=== PATIENT | male | born 1940 | race Caucasian/White ===

== ENCOUNTER 2017-03-16 11:20 | Emergency (ER) | payer OTHER ==
[2017-03-16 11:59] VITALS: TEMP 97.1; BMI 26.6
--- NOTE | 2017-03-16 14:10 | PDOC ---
History of Present Illness <Sandor Todd - Last Filed: 03/16/17 13:50> - History of Present Illness Initial Comments: 03/16/17 15:19 The patient is a 76 year old male, with a significant past medical history of dementia (with agitation), hypothyroidism, depression, hernia s/p repair, BPH, who presents to the emergency department via ems from [facility] for being witnessed coughing during breakfast and afterwards. As per [place], the patient was witnessed eating breakfast when he started to cough. The [place] reports the patient continued to cough for at least an hour after eating. The patient is unable to give a history secondary to dementia. No reported fever. Pt noted hypoxic to 90 % per [place] report, vitals otherwise normal. Allergies: NKDA PCP - Dr. Edil Matos <Kena Danielson - Last Filed: 03/16/17 15:20> - General Chief Complaint: Cold Symptoms Stated Complaint: COUGH Time Seen by Provider: 03/16/17 12:00 Past History - Past Medical History Dementia: Yes (WITH AGITATION) Disorders: Yes (BPH) Psychiatric Problems: Yes (DEPRESSION) Thyroid Disease: Yes - Surgical History GI Surgery: Yes (HERNIA REPAIR) - Psycho/Social/Smoking Cessation Hx Anxiety: Yes Suicidal Ideation: No Smoking History: Unknown if ever smoked Have you smoked in the past 12 months: No Information on smoking cessation initiated: No Hx Alcohol Use: No Drug/Substance Use Hx: No Substance Use Type: None <Sandor Todd - Last Filed: 03/16/17 13:50> <Kena Danielson - Last Filed: 03/16/17 15:20> - Past Medical History Allergies/Adverse Reactions: Allergies Allergy/AdvReac Type Severity Reaction Status Date / Time No Known Allergies Allergy Verified 03/16/17 11:59 Home Medications: Ambulatory Orders Acetaminophen [Tylenol .Regular Strength -] 650 mg PO TID PRN 01/08/14 Melatonin 2 mg PO HS 01/08/14 Haloperidol [Haldol -] 2 mg PO BID 04/18/14 Tamsulosin HCl [Flomax -] 0.4 mg PO HS 04/18/14 Levothyroxine [Synthroid -] 50 mcg PO DAILY 07/09/14 Amlodipine Besylate 10 mg PO DAILY 09/10/16 Benztropine Mesylate 1 mg PO BID 09/10/16 Haloperidol Liquid [Haldol] 1 ml PO BID 09/10/16 Polyethylene Glycol 3350 [Miralax (For Daily Use) -] 17 gm PO DAILY 09/10/16 Valproic Acid (As Sodium Salt) [Valproic Acid] 10 ml PO TID 09/10/16 Zinc Oxide 20% Topical Oint 1 applic .ROUTE BID 09/10/16 Review of Systems - Review of Systems Able to Perform ROS?: No Comments:: 03/16/17 15:20 unable to obtain secondary to dementia. <Kena Danielson - Last Filed: 03/16/17 15:20> *Physical Exam - Vital Signs Last Vital Signs Temp Pulse Resp BP Pulse Ox 97.1 F L 58 L 18 152/95 100 03/16/17 11:20 03/16/17 11:20 03/16/17 11:20 03/16/17 11:20 03/16/17 11:20 <Sandor Todd - Last Filed: 03/16/17 13:50> - Vital Signs Last Vital Signs Temp Pulse Resp BP Pulse Ox 97.1 F L 58 L 18 152/95 100 03/16/17 11:20 03/16/17 11:20 03/16/17 11:20 03/16/17 11:20 03/16/17 11:20 - Physical Exam Comments: 03/16/17 15:20 GENERAL: The patient is awake, alert. Unable to respond appropriately due to dementia Nontoxic - in no acute distress. HEAD: Normocephalic, atraumatic. EYES: extraocular movements intact, sclera anicteric, conjunctiva clear. ENT: Normal voice, Moist mucous membranes. NECK: Normal range of motion, supple LUNGS: Breath sounds equal, clear to auscultation bilaterally. No wheezes, no rhonchi, no rales. HEART: Regular rate and rhythm, without murmur, rub or gallop. ABDOMEN: Soft, nontender, normoactive bowel sounds. EXTREMITIES: (+) tremors in extremities. NEUROLOGICAL: Pt unable to respond appropriately. <Kena Danielson - Last Filed: 03/16/17 15:20> ED Treatment Course - RADIOLOGY Radiology Studies Ordered: Category Date Time Status CHEST PA & LAT [RAD] Stat Radiology 03/16/17 12:13 Completed <Sandor Todd - Last Filed: 03/16/17 13:50> Medical Decision Making - Medical Decision Making 03/16/17 13:51 76y M hx of dementia, hypothyroidism, bph, as staff noticed pt was coughing during breakfast and was still coughing after breakfast. unable to obtain history for pt. pts vitals normal here and lungs clear, in no distress beside mild intermittent cough. no fever, sats normal. cxr clear will dc the pt back to [facility] and pmd fu A portion of this note was documented by scribe services under my direction. I have reviewed the details of the note, within reason, and agree with the documentation with the following case summary and management plan written by me I discussed the physical exam findings, ancillary test results and final diagnoses with the patient. I answered all of the patient's questions. The patient was satisfied with the care received and felt comfortable with the discharge plan and treatment plan. The patient will call their primary care physician within 24 hours to arrange follow-up and will return to the Emergency Department with any new, persistent or worsening symptoms. <Sandor Todd - Last Filed: 03/16/17 13:50> *DC/Admit/Observation/Transfer - Discharge Dispostion Admit: No <Sandor Todd - Last Filed: 03/16/17 13:50> - Attestations Scribe Attestion: 03/16/17 15:20 Documentation prepared by Kena Danielson, acting as dental assistant medical assistant for Sandor Todd MD, <Kena Danielson - Last Filed: 03/16/17 15:20> Diagnosis at time of Disposition: Cough - Referrals Referrals: Edil Matos [Primary Care Provider] - - Patient Instructions Printed Discharge Instructions: DI for Cough -- Adult Additional Instructions: Return to the emergency department immediately with ANY new, persistent or worsening symptoms. You MUST call and follow up with your doctor tomorrow for further evaluation of your symptoms. Results were discussed with you. Please make sure your doctor reviews the results of your emergency evaluation. If you had any xrays during your visit, it was read preliminarily by myself, a Radiologist will review it and if there are any additional findings we will call you. Print Language: BARBADIAN
[2017-03-16 15:57] VITALS: BP 135/79; PULSE 61
--- NOTE | 2017-03-23 10:40 | EKG ---
Test Reason : Blood Pressure : / mmHG Vent. Rate : 058 BPM Atrial Rate : 058 BPM P-R Int : 138 ms QRS Dur : 068 ms QT Int : 460 ms P-R-T Axes : 065 008 048 degrees QTc Int : 451 ms POOR DATA QUALITY, INTERPRETATION MAY BE ADVERSELY AFFECTED SINUS BRADYCARDIA WITH PREMATURE VENTRICULAR COMPLEXES OR FUSION COMPLEXES PROLONGED QT Confirmed by ALEIDA JONES MD ([id number]) on 03/23/2017 10:39:48 AM Referred By: Confirmed By:ALEIDA JONES MD
== END 2017-03-16 16:10 ==
LOC: JER 11:20
DX: R05 Cough (principal); F03.91 Unspecified dementia, unspecified severity, with behavioral disturbance; E03.9 Hypothyroidism, unspecified; M32.9 Systemic lupus erythematosus, unspecified; N40.0 Benign prostatic hyperplasia without lower urinary tract symptoms
CPT/HCPCS: 71020-TC; 93005; 93010; 99282-25

== ENCOUNTER 2017-12-27 10:42 | Inpatient (IN) | payer OTHER ==
[2017-12-27] MEDS ORDERED: SODIUM CHLORIDE 1,000 ML IV STA ×5 (11:45→14:41)
--- NOTE | 2017-12-27 11:56 | PDOC ---
*Physical Exam - Vital Signs Last Vital Signs Temp Pulse Resp BP Pulse Ox 91.5 F L 56 L 18 103/47 100 12/27/17 11:32 12/27/17 11:00 12/27/17 11:00 12/27/17 11:00 12/27/17 11:00 - Physical Exam Comments: 12/27/17 11:54 Hypothermia, hypotension Bedbound Agree with exam ED Treatment Course - LABORATORY CBC & Chemistry Diagram: 12/27/17 12:10 12/27/17 12:10 Medical Decision Making - Critical Care Time Total Critical Care Time (minutes): 160 Critical Care Statement: The care of this patient involved high complexity decision making to prevent further life threatening deterioration of the patient 's condition and/or to evaluate & treat vital organ system(s) failure or risk of failure. - Medical Decision Making 12/27/17 11:55 Patient seen and evaluated with the nurse practitioner. I agree with the overall evaluation, assessment, and management with the following summary of visit: 77-year-old male with history of seizures sent from shelter status post seizure. Profoundly hypothermic and hypotensive in the emergency department, concerning for sepsis. Sepsis protocol initiated IV fluid resuscitation EKG without acute ischemia or block Close monitoring and admission 12/27/17 14:37 persistently hypotensive, bradycardic, hypothermic. labs notable for elevated BUN, slightly elevated Na. history from family of decreased PO intake. ? dehydration, ? adrenal insufficiency, ? persistent undifferentiated shock. continue IVF now on 4th L, US to assess volume status, then consider pressors v. stress dose steroids. Accepted for ICU, pending admission. 12/27/17 16:45 Persistent lethargy, O2 sats in the 80s, increasing pulmonary edema and airway congestion the setting of fluid resuscitation. Decision made to intubate for airway protection and persistent hypoxia. Rapid sequence intubation using etomidate and succinylcholine. 7.0 ET tube passed using Mac 4 blade, tolerated well. Placement confirmed with auscultation , visualization, end-tidal CO2, and chest x-ray. Proceed with ICU admission. CT of the abdomen and pelvis suspicious for pancreatitis, will add lipase. *DC/Admit/Observation/Transfer Diagnosis at time of Disposition: Seizure Hypothermia Qualifiers: Encounter type: initial encounter Qualified Code(s): T68.XXXA - Hypothermia, initial encounter - Referrals - Patient Instructions - Post Discharge Activity
[2017-12-27 12:33] LABS: BASO % 0.2 % (0-2.0); EOS % 1.5 % (0-4.5); HEMATOCRIT 28.2 % (35.4-49); HEMOGLOBIN 9.9 GM/dL (11.7-16.9); LYMPH % 25.7 % (8-40); MCH 32.3 pg (25.7-33.7); MCHC 35.2 g/dl (32.0-35.9); MEAN CELL VOLUME 91.9 fl (80-96); MEAN PLT VOLUME 8.8 fl (7.5-11.1); MONO % 10.3 % (3.8-10.2); NEUT % 62.3 % (42.8-82.8); PLATELET COUNT 113 K/MM3 (134-434); RBC 3.06 M/mm3 (4.00-5.60); RDW 14.3 % (11.9-15.9); WHITE BLOOD COUNT 2.6 K/mm3 (4.0-10.0)
[2017-12-27 12:39] LABS: VENOUS PC02 48.4 mmHg (38-52); VENOUS PH 7.31 (7.32-7.42); VENOUS PO2 71.2 mmHg (28-48)
[2017-12-27 13:00] LABS: ALBUMIN 2.7 g/dl (3.4-5.0); ALK PHOS 136 U/L (45-117); ANION GAP 7 (8-16); BILIRUBIN,TOTAL 0.3 mg/dL (0.2-1.0); BLOOD UREA NITROGEN 58 mg/dL (7-18); CALCIUM 8.5 mg/dL (8.5-10.1); CHLORIDE 116 mmol/L (98-107); CO2 24 mmol/L (21-32); CREATININE 1.1 mg/dL (0.7-1.3); GLUCOSE,RANDOM 82 mg/dL (74-106); SGOT/AST 27 U/L (15-37); SGPT/ALT 38 U/L (12-78); SODIUM 147 mmol/L (136-145); TOT PROT 6.2 g/dl (6.4-8.2)
[2017-12-27] MEDS ORDERED: VANCOMYCIN 1,000 MG in DEXTROSE 5%-WATER - 250 ML IVPB ONE (13:11)
--- NOTE | 2017-12-27 13:12 | PDOC ---
History of Present Illness <Adam Olsonson - Last Filed: 12/27/17 17:08> - General History Source: [facility] Exam Limitations: No Limitations - History of Present Illness Initial Comments: 12/27/17 13:18 77-year-old male sent in [facility] for evaluation of a witnessed seizure while in bed this morning. As per EMS patient has history of seizures and was sent here for further evaluation. As per correction records there was no indication of how long it lasted and what symptoms were observed. Patient also had no BGM done while in route. BGM upon arrival 92. Patient history of dementia, BPH, hypothyroidism, and depression. Timing/Duration: resolved prior to arrival Associated Symptoms: reports: seizure <Raquel Lyn - Last Filed: 01/08/18 07:46> - General Chief Complaint: Seizure Stated Complaint: SEIZURE Time Seen by Provider: 12/27/17 10:48 Past History <Adam Olsonson - Last Filed: 12/27/17 17:08> - Past Medical History COPD: No Dementia: Yes (WITH AGITATION) Disorders: Yes (BPH) Psychiatric Problems: Yes (DEPRESSION) Thyroid Disease: Yes - Surgical History GI Surgery: Yes (HERNIA REPAIR) - Suicide/Smoking/Psychosocial Hx Smoking History: Unknown if ever smoked Have you smoked in the past 12 months: No Information on smoking cessation initiated: No Hx Alcohol Use: No Drug/Substance Use Hx: No Substance Use Type: None Patient Lives Alone: No Lives with/in: correction <RikiPata - Last Filed: 01/08/18 07:46> - Past Medical History Allergies/Adverse Reactions: Allergies Allergy/AdvReac Type Severity Reaction Status Date / Time No Known Allergies Allergy Verified 03/16/17 11:59 Home Medications: Ambulatory Orders Acetaminophen [Tylenol .Regular Strength -] 650 mg PO TID PRN 01/08/14 Melatonin 2 mg PO HS 01/08/14 Tamsulosin HCl [Flomax -] 0.4 mg PO HS 04/18/14 Levothyroxine [Synthroid -] 50 mcg PO DAILY 07/09/14 Amlodipine Besylate 5 mg PO DAILY 09/10/16 Benztropine Mesylate 1 mg PO BID 09/10/16 Polyethylene Glycol 3350 [Miralax (For Daily Use) -] 17 gm PO DAILY 09/10/16 Valproic Acid (As Sodium Salt) [Valproic Acid] 500 mg PO BID 09/10/16 Ascorbic Acid [Vitamin C] 500 mg PO DAILY 12/27/17 Aspirin [Aspirin EC] 81 mg PO DAILY 12/27/17 Cholecalciferol (Vitamin D3) [Vitamin D3] 1,000 unit PO DAILY 12/27/17 Multivitamins [Tab-A-Vit -] 1 tab PO DAILY 12/27/17 Review of Systems - Review of Systems Able to Perform ROS?: No Constitutional: Yes: Weakness HEENTM: No: Symptoms Reported Respiratory: No: Symptoms reported Cardiac (ROS): No: Symptoms Reported ABD/GI: Yes: Poor Appetite. No: Symptoms Reported Neurological: Yes: Seizure Endocrine: No: Symptoms Reported Hematologic/Lymphatic: No: Symptoms Reported <Raquel Lyn - Last Filed: 01/08/18 07:46> *Physical Exam - Vital Signs Last Vital Signs Temp Pulse Resp BP Pulse Ox 93.7 F L 65 16 119/62 100 12/27/17 16:54 12/27/17 16:54 12/27/17 16:54 12/27/17 16:54 12/27/17 16:54 <Alexander Olson - Last Filed: 12/27/17 17:08> - Vital Signs Last Vital Signs Temp Pulse Resp BP Pulse Ox 91.3 F L 58 L 16 100/60 100 12/27/17 12:39 12/27/17 12:58 12/27/17 12:58 12/27/17 12:58 12/27/17 12:58 - Physical Exam General Appearance: Yes: Appropriately Dressed HEENT: positive: TMs Normal, Pharynx Normal (dry) Neck: positive: Supple Respiratory/Chest: positive: Lungs Clear, Normal Breath Sounds. negative: Respiratory Distress, Accessory Muscle Use Cardiovascular: positive: Regular Rhythm, Bradycardia. negative: Murmur Gastrointestinal/Abdominal: positive: Soft. negative: Tenderness Male Genitalia: positive: normal genitalia Extremity: positive: Normal Capillary Refill. negative: Pedal Edema Integumentary: positive: Normal Color, Dry, Cold. negative: Rash, Swelling, Ecchymosis Neurologic: positive: Motor Strength 5/5 (moves extremeties and spastic) <Raquel Lyn - Last Filed: 01/08/18 07:46> Procedures - Intubation Intubation Method: orotracheal Blade used: Mac Tube Size (Fr): 7.0 Medications: Etomidate, Succinylcholine Tube position confirmed by: Direct visualization, CO2 detector, Chest x-ray, Breath sounds Breath Sounds after Intubation: equal Intubation Complications: O2 saturation decreased Post Intubation Xray: Yes <Alexander Olson - Last Filed: 12/27/17 17:08> Heart Score/ECG Review - P and NM Prolonged NM Interval: 1st Degree Block(>20mils) (rate 51. New first degree AV block when compared to 2013 eKG) <Raquel Lyn - Last Filed: 01/08/18 07:46> ED Treatment Course - LABORATORY CBC & Chemistry Diagram: 12/27/17 12:10 12/27/17 12:10 - ADDITIONAL ORDERS Additional order review: Laboratory Results 12/27/17 12/27/17 12/27/17 12:10 12:10 12:10 PT with INR INR PTT (Actin FS) VBG pH POC VBG pCO2 POC VBG pO2 Mixed VBG HCO3 Sodium 147 H Potassium 5.0 Chloride 116 H D Carbon Dioxide 24 Anion Gap 7 L BUN 58 H D Creatinine 1.1 Creat Clearance w eGFR > 60 POC Glucometer Random Glucose 82 Lactic Acid 0.8 Calcium 8.5 Total Bilirubin 0.3 AST 27 D ALT 38 D Alkaline Phosphatase 136 H D Troponin I < 0.02 Total Protein 6.2 L Albumin 2.7 L Valproic Acid 12/27/17 12/27/17 12/27/17 12:10 12:10 12:10 PT with INR 10.50 INR 0.93 D PTT (Actin FS) 36.1 H VBG pH 7.31 L POC VBG pCO2 48.4 POC VBG pO2 71.2 H Mixed VBG HCO3 23.8 Sodium Potassium Chloride Carbon Dioxide Anion Gap BUN Creatinine Creat Clearance w eGFR POC Glucometer Random Glucose Lactic Acid Calcium Total Bilirubin AST ALT Alkaline Phosphatase Troponin I Total Protein Albumin Valproic Acid 21.273 L 12/27/17 11:35 PT with INR INR PTT (Actin FS) VBG pH POC VBG pCO2 POC VBG pO2 Mixed VBG HCO3 Sodium Potassium Chloride Carbon Dioxide Anion Gap BUN Creatinine Creat Clearance w eGFR POC Glucometer 92.74231 Random Glucose Lactic Acid Calcium Total Bilirubin AST ALT Alkaline Phosphatase Troponin I Total Protein Albumin Valproic Acid 12/27/17 12/27/17 12:10 11:35 RBC 3.06 L MCV 91.9 MCHC 35.2 RDW 14.3 MPV 8.8 Neutrophils % 62.3 Lymphocytes % 25.7 Monocytes % 10.3 H Eosinophils % 1.5 Basophils % 0.2 POC Glucometer 92.14970 - Medications Given in the ED: ED Medications Discontinued Medications Generic Name Dose Route Start Last Admin Trade Name Freq PRN Reason Stop Dose Admin Etomidate 20 mg 12/27/17 16:46 12/27/17 16:35 Amidate - IVPUSH 12/27/17 16:47 20 mg ONCE ONE Administration Sodium Chloride 1,000 mls @ 1,000 mls/hr 12/27/17 11:45 12/27/17 12:00 Normal Saline - IV 12/27/17 12:44 1,000 mls/hr ASDIR STA Administration Sodium Chloride 1,000 mls @ 1,000 mls/hr 12/27/17 12:53 12/27/17 12:58 Normal Saline - IV 12/27/17 13:52 1,000 mls/hr ASDIR STA Administration Sodium Chloride 1,000 mls @ 1,000 mls/hr 12/27/17 13:11 12/27/17 13:20 Normal Saline - IV 12/27/17 14:10 1,000 mls/hr ASDIR STA Administration Vancomycin HCl 1,000 mg/ 250 mls @ 250 mls/hr 12/27/17 13:11 12/27/17 13:29 Dextrose IVPB 12/27/17 14:10 250 mls/hr ONCE ONE Administration Protocol Sodium Chloride 1,000 mls @ 1,000 mls/hr 12/27/17 13:57 12/27/17 13:59 Normal Saline - IV 12/27/17 14:56 1,000 mls/hr ONCE ONE Administration Sodium Chloride 1,000 mls @ 1,000 mls/hr 12/27/17 14:41 12/27/17 14:42 Normal Saline - IV 12/27/17 15:40 1,000 mls/hr ASDIR STA Administration Sodium Chloride 1,000 mls @ 1,000 mls/hr 12/27/17 14:41 12/27/17 15:15 Normal Saline - IV 12/27/17 15:40 1,000 mls/hr ASDIR STA Administration Lorazepam 2 mg 12/27/17 16:47 12/27/17 16:54 Ativan Injection - IVPUSH 12/27/17 16:48 2 mg ONCE ONE Administration Succinylcholine Chloride 100 mg 12/27/17 16:46 12/27/17 16:35 Quelicin - IVPUSH 12/27/17 16:47 100 mg ONCE ONE Administration Valproate Sodium 500 mg 12/27/17 14:14 12/27/17 14:26 Depacon Injection - IVPB 12/27/17 14:15 500 mg ONCE ONE Administration Valproate Sodium 1,500 mg 12/27/17 14:33 12/27/17 14:43 Depacon Injection - IVPB 12/27/17 14:34 Not Given ONCE ONE Valproate Sodium 1,000 mg 12/27/17 14:39 12/27/17 14:46 Depacon Injection - IVPB 12/27/17 14:40 1,000 mg ONCE ONE Administration <Alexander Olson - Last Filed: 12/27/17 17:08> - LABORATORY CBC & Chemistry Diagram: 01/07/18 07:15 01/07/18 07:15 - ADDITIONAL ORDERS Additional order review: Laboratory Results 12/27/17 12:10 VBG pH 7.31 L POC VBG pCO2 48.4 POC VBG pO2 71.2 H Mixed VBG HCO3 23.8 12/27/17 12:10 RBC 3.06 L MCV 91.9 MCHC 35.2 RDW 14.3 MPV 8.8 Neutrophils % 62.3 Lymphocytes % 25.7 Monocytes % 10.3 H Eosinophils % 1.5 Basophils % 0.2 - RADIOLOGY Radiology Studies Ordered: Category Date Time Status CHEST X-RAY PORTABLE* [RAD] Stat Radiology 12/27/17 11:45 Completed - Medications Given in the ED: ED Medications Discontinued Medications Generic Name Dose Route Start Last Admin Trade Name Freq PRN Reason Stop Dose Admin Sodium Chloride 1,000 mls @ 1,000 mls/hr 12/27/17 11:45 12/27/17 12:00 Normal Saline - IV 12/27/17 12:44 1,000 mls/hr ASDIR STA Administration <Raquel Lyn - Last Filed: 01/08/18 07:46> Medical Decision Making - Critical Care Time Total Critical Care Time (minutes): 120 Critical Care Statement: The care of this patient involved high complexity decision making to prevent further life threatening deterioration of the patient 's condition and/or to evaluate & treat vital organ system(s) failure or risk of failure. - Medical Decision Making 12/27/17 13:50 Patient here with history of hypothyroidism, seizure, dementia presents for evaluation of a witnessed seizure as per correction. Patient arrived hypotensive, hypothermic and bradycardic. Septic workup initiated immediately patient received IV fluids via IV unable to obtain urine secondary to urethral stricture. Patient with condom catheter presently. Patient ordered for Vanco Zosyn along with IV fluids. Differential diagnoses to include electrolyte imbalance, low Depakote level, sepsis, or acute coronary syndrome. EKG showed new first degree AV block when compared to July 2014. 12/27/17 14:02 Patient with minimal improvement after receiving 4 L of normal saline. Heart rate maintained 60s. O2 sat 95 with 2 L. Blood pressure anywhere from 70-80/40- 50. Dopamine drip initiated via second IV site. Depakote level noted and will order 1500 mg of Depacon IV case discussed with Dr. Cortez will accept the patient to the unit. Patient will has central line placed. 12/27/17 14:52 Bedside ultrasound performed by attending which showed a collapsed IVC patient ordered for 2 additional . liters of normal saline. Bladder measured for urine which measured approximate 70 mL. Patient ordered for ultrasound of the abdomen and pelvis for questionable bladder mass seen on bedside ultrasound. Son updated the patient's adenosis. Patient is currently a full code. 12/27/17 14:54 Laboratory Tests 12/27/17 12/27/17 12/27/17 12:10 12:10 12:10 WBC 2.6 L D Hgb 9.9 L Hct 28.2 L MCV 91.9 Plt Count 113 L D Neutrophils % 62.3 Monocytes % 10.3 H PT with INR 10.50 INR 0.93 D PTT (Actin FS) 36.1 H VBG pH POC VBG pCO2 POC VBG pO2 Sodium Potassium Chloride Carbon Dioxide Anion Gap BUN Creatinine Creat Clearance w eGFR Random Glucose Lactic Acid Calcium Total Bilirubin AST ALT Alkaline Phosphatase Troponin I Total Protein Albumin Valproic Acid 21.273 L 12/27/17 12/27/17 12/27/17 12:10 12:10 12:10 WBC Hgb Hct MCV Plt Count Neutrophils % Monocytes % PT with INR INR PTT (Actin FS) VBG pH 7.31 L POC VBG pCO2 48.4 POC VBG pO2 71.2 H Sodium 147 H Potassium 5.0 Chloride 116 H D Carbon Dioxide 24 Anion Gap 7 L BUN 58 H D Creatinine 1.1 Creat Clearance w eGFR > 60 Random Glucose 82 Lactic Acid 0.8 Calcium 8.5 Total Bilirubin 0.3 AST 27 D ALT 38 D Alkaline Phosphatase 136 H D Troponin I Total Protein 6.2 L Albumin 2.7 L Valproic Acid 12/27/17 12:10 WBC Hgb Hct MCV Plt Count Neutrophils % Monocytes % PT with INR INR PTT (Actin FS) VBG pH POC VBG pCO2 POC VBG pO2 Sodium Potassium Chloride Carbon Dioxide Anion Gap BUN Creatinine Creat Clearance w eGFR Random Glucose Lactic Acid Calcium Total Bilirubin AST ALT Alkaline Phosphatase Troponin I < 0.02 Total Protein Albumin Valproic Acid 12/27/17 14:55 Patient remains with bronson hugger in place secondary to hypothermia. Cortisol and thyroid level added to rule out adrenal insufficiency. Awaiting Dr. Brisa Rizvi for callback ICU admission ordered 12/27/17 16:56 CT of the abdomen shows bilateral laying pleural effusions with subsegmental compressive atelectasis in both lungs. There is scarring versus atelectasis in the right middle lobe and lingula. Common bile duct is not dilated. There is fat stranding and fluid surrounding the pancreas extending anteriorly on the undersurface of the gastric atrum. There is no adrenal mass there is no hydronephrosis. Normal caliber of abdominal aorta the prostate is enlarged, indenting the base of the urinary bladder. There is a small left inguinal hernia containing fat only. Case discussed with Dr. Coronado. Secondary to atelectasis seen on chest x-ray and the amount of fluid patient is receiving currently , patient will require intubation. Intubation was performed by resident with supervision. Intubation without successful without complications. Patient had a 7.0 ET tube satting at 100% via ventilator. Patient is requiring sedation. Patient ordered for Ativan 2 mg and will replace an Ativan drip. head CT shows no acute intracranial hemorrhage, extra-axial collection or mass affects. <Raquel Lyn - Last Filed: 01/08/18 07:46> *DC/Admit/Observation/Transfer <Alexander Olson - Last Filed: 12/27/17 17:08> - Discharge Dispostion Admit: Yes <Raquel Lyn - Last Filed: 01/08/18 07:46> Diagnosis at time of Disposition: Seizure Hypothermia Qualifiers: Encounter type: initial encounter Qualified Code(s): T68.XXXA - Hypothermia, initial encounter
[2017-12-27] MEDS ORDERED: VANCOMYCIN 1 GRAM (PRE-DOCKED) 1,000 MG/250 ML BAG IVPB ONE (13:14)
[2017-12-27] MEDS ORDERED: PIPERACILLIN/TAZOB 3.375 GM 3.375 GM in DEXTROSE 5%-WATER - 50 ML IVPB SCH (13:15)
[2017-12-27] MEDS ORDERED: PIPERACILLIN/TAZOB 3.375 GM 3.375 GM/50 ML BAG IVPB ONE (13:15)
[2017-12-27] MEDS ORDERED: SODIUM CHLORIDE 1,000 ML IV ONE ×2 (13:57)
[2017-12-27] MEDS ORDERED: DOPAMINE 400 MG/D5W - 400,000 MCG/250 ML INFUS.BAG IVPB ONE (14:05)
[2017-12-27] MEDS: DOPAMINE 400 MG/D5W - 400,000 MCG/250 ML INFUS.BAG IVPB SCH (14:12)
--- NOTE | 2017-12-27 14:13 | EKG ---
Test Reason : Blood Pressure : / mmHG Vent. Rate : 051 BPM Atrial Rate : 051 BPM P-R Int : 230 ms QRS Dur : 092 ms QT Int : 472 ms P-R-T Axes : 050 017 052 degrees QTc Int : 435 ms POOR DATA QUALITY, INTERPRETATION MAY BE ADVERSELY AFFECTED SINUS BRADYCARDIA WITH 1ST DEGREE A-V BLOCK OTHERWISE NORMAL ECG WHEN COMPARED WITH ECG OF 16-MAR-2017 11:46, FUSION COMPLEXES ARE NO LONGER PRESENT PREMATURE VENTRICULAR COMPLEXES ARE NO LONGER PRESENT VT INTERVAL HAS INCREASED QRS DURATION HAS INCREASED Confirmed by DARRICK URBANO MD ([id number]) on 12/27/2017 2:12:39 PM Referred By: Confirmed By:DARRICK URBANO MD
[2017-12-27 14:14] LABS: INR 0.93 (0.82-1.09); PROTHROMBIN TIME (PATIENT) 10.5 SEC (9.98-11.88)
[2017-12-27] MEDS ORDERED: VALPROATE SODIUM 500 MG/5 ML VIAL IVPB ONE ×3 (14:14→14:39)
[2017-12-27 14:17] LABS: ACTIVATED PTT 36.1 SECONDS (26.9-34.4)
[2017-12-27] MEDS ORDERED: VALPROATE SODIUM 500 MG/5 ML VIAL ONE ×2 (14:24→14:43)
--- NOTE | 2017-12-27 15:31 | CONSULT ---
Consult Consult Specialty:: PULMONARY/CCM Referred by:: TAWNYA Lyn Reason for Consultation:: shock - History of Present Illness Chief Complaint: seizure History of Present Illness: 77yo male with h/o seizure disorder, hypothyroidism, depression, BPH, dementia who [facility] after witnessed [facility]. Currently post ictal in the ER, noted to be hypotensive and hypothermic. Currently receiving IVF resuscitation and started on peripheral dopamine gtt. Bedside ultrasound done showing hyperdynamic LV and IVC collapse with normal inspiration. Pt unable to provide further history at this time. - History Source History Provided By: Medical Record Limitations to Obtaining History: Clinical Condition - Past Medical History CURRENCY EXAMINER: Yes: Dementia, Seizure Renal/: Yes: BPH Endocrine: Yes: Hypothyroidism - Alcohol/Substance Use Hx Alcohol Use: No - Smoking History Smoking history: Unknown if ever smoked Have you smoked in the past 12 months: No Home Medications - Allergies Allergies/Adverse Reactions: Allergies Allergy/AdvReac Type Severity Reaction Status Date / Time No Known Allergies Allergy Verified 03/16/17 11:59 - Home Medications Home Medications: Ambulatory Orders Acetaminophen [Tylenol .Regular Strength -] 650 mg PO TID PRN 01/08/14 Melatonin 2 mg PO HS 01/08/14 Tamsulosin HCl [Flomax -] 0.4 mg PO HS 04/18/14 Levothyroxine [Synthroid -] 50 mcg PO DAILY 07/09/14 Amlodipine Besylate 5 mg PO DAILY 09/10/16 Benztropine Mesylate 1 mg PO BID 09/10/16 Polyethylene Glycol 3350 [Miralax (For Daily Use) -] 17 gm PO DAILY 09/10/16 Valproic Acid (As Sodium Salt) [Valproic Acid] 500 mg PO BID 09/10/16 Ascorbic Acid [Vitamin C] 500 mg PO DAILY 12/27/17 Aspirin [Aspirin EC] 81 mg PO DAILY 12/27/17 Cholecalciferol (Vitamin D3) [Vitamin D3] 1,000 unit PO DAILY 12/27/17 Multivitamins [Tab-A-Vit -] 1 tab PO DAILY 12/27/17 Review of Systems Unable to obtain ROS, reason: pt lethargic Physical Exam Vital Signs: Vital Signs Temperature 92.5 F L 12/27/17 15:06 Pulse Rate 76 12/27/17 15:06 Respiratory Rate 16 12/27/17 15:06 Blood Pressure 84/42 12/27/17 15:06 O2 Sat by Pulse Oximetry (%) 95 12/27/17 15:06 Constitutional: Yes: Mild Distress (mildly tachypneic at rest) Eyes: Yes: Conjunctiva Clear, EOM Intact HENT: Yes: Atraumatic, Normocephalic Neck: Yes: Supple, Trachea Midline Cardiovascular: Yes: Regular Rate and Rhythm Respiratory: Yes: Rhonchi Gastrointestinal: Yes: Normal Bowel Sounds, Soft. No: Tenderness Edema: No Neurological: Yes: Lethargy Labs: CBC, BMP 12/27/17 12:10 12/27/17 12:10 Imaging - Results Chest X-ray: Report Reviewed, Image Reviewed (no infiltrates) Problem List - Problems (1) Seizure Code(s): R56.9 - UNSPECIFIED CONVULSIONS (2) Hypovolemic shock Code(s): R57.1 - HYPOVOLEMIC SHOCK (3) BPH (benign prostatic hyperplasia) Code(s): N40.0 - BENIGN PROSTATIC HYPERPLASIA WITHOUT LOWER URINRY TRACT SYMP (4) Hypothyroid Code(s): E03.9 - HYPOTHYROIDISM, UNSPECIFIED (5) Dementia Code(s): F03.90 - UNSPECIFIED DEMENTIA WITHOUT BEHAVIORAL DISTURBANCE Assessment/Plan Seizure Episode Seizure Disorder Hypovolemic Shock r/o Sepsis, r/o UTI Pancytopenia Hypothyroidism BPH Dementia - IVF resuscitation - pressor support to maintain MAP >65 - empiric antibiotics - f/u cultures - difficulty placing alva in ER, may need eval for alva placement for UA, urine culture - monitor CBC - O2 to keep SPo2 >90% - aspiration precautions - DVT prophylaxis - ICU monitoring Thank you for this consult Emery Cortez MD
[2017-12-27] MEDS ORDERED: RAPID SEQUENCE INTUBATION KIT NR ONE (16:20)
[2017-12-27] MEDS ORDERED: ETOMIDATE 20 MG/10 ML AMPUL IVPUSH ONE ×2 (16:29→16:46)
[2017-12-27] MEDS ORDERED: SUCCINYLCHOLINE CHLORIDE 200 MG/10 ML VIAL IVPUSH ONE (16:46)
[2017-12-27] MEDS ORDERED: LORazepam 2 MG/ML SDV VIAL ONE (16:49)
--- NOTE | 2017-12-27 19:12 | PN ---
Progress Note (short form) - Note Progress Note: Consult placed for neurology. Spoke to Dr. Bernal, Neurologist, who recommended that patient be placed on Keppra 750mg BID as it is least hepatotoxic and to STOP DEPAKOTE as it causes Pancreatitis, thrombocytopenia and liver dysfunction. -Will check Ammonia Levels, as per neurology -EEG ordered, as per neurology -Will contact primary care physician for admission ordered. Danya Perry MD-[id number]
[2017-12-27 19:30] LABS: ARTERIAL BLOOD GAS BASE EXCESS -8.8 meq/l (-2-2); ARTERIAL BLOOD GAS PCO2 33.7 mmHg (35-45); ARTERIAL BLOOD GAS pH 7.31 (7.35-7.45)
[2017-12-27 19:41] LABS: ALLENS TEST POSITIVE
[2017-12-27 19:47] LABS: ARTERIAL BLD GAS O2 SATURATION 99.6 % (90-98.9)
--- NOTE | 2017-12-27 21:15 | HP ---
CHIEF COMPLAINT: seizure HISTORY OF PRESENT ILLNESS: 77 year old male with a history of hypothyroidism, dementia, BPH, seizure disorder, depression, urethral stricture, hernia repair came from [facility] s/p witnessed seizure, lethargy, and unresponsiveness. According to patient's son, patient only started having seizures when he moved into [facility] and has had 2-3 total, the last one being 6 months ago. Patient has been on Depakote in the nursing facility. Patient's son reports that he may have been complaining of vague abdominal pain for the past 3 weeks. At baseline , patient is mildly responsive, but does not communicate well or respond to simple commands. In the ED, patient was found to be hypothermic to 91 degrees, bradycardic, and hypotensive. His depakote level was found to be low. Patient was worked up for sepsis. His WBCs were low at 2.6. he was started on vanc/ zosyn and given 6 liters of fluids. His abdominal CT showed evidence of pancreatitis and bladder outlet obstruction. ER course was notable for: (1) WBCs low (2) pancreatitis on CT (3) acute hypoxic respiratory failure PAST MEDICAL HISTORY: hypothyroidism, dementia, BPH, seizure disorder, depression, urethral stricture, hernia repair PAST SURGICAL HISTORY: hernia repair Social History: Smoking: former Alcohol: former heavy drinker Drugs: none Family History: WPW Allergies No Known Allergies Allergy (Verified 03/16/17 11:59) HOME MEDICATIONS: Home Medications Medication Instructions Recorded Acetaminophen [Tylenol .Regular 650 mg PO TID PRN 01/08/14 Strength -] Melatonin 2 mg PO HS 01/08/14 Tamsulosin HCl [Flomax -] 0.4 mg PO HS 04/18/14 Levothyroxine [Synthroid -] 50 mcg PO DAILY 07/09/14 Amlodipine Besylate 5 mg PO DAILY 09/10/16 Benztropine Mesylate 1 mg PO BID 09/10/16 Polyethylene Glycol 3350 [Miralax 17 gm PO DAILY 09/10/16 (For Daily Use) -] Valproic Acid (As Sodium Salt) 500 mg PO BID 09/10/16 [Valproic Acid] Ascorbic Acid [Vitamin C] 500 mg PO DAILY 12/27/17 Aspirin [Aspirin EC] 81 mg PO DAILY 12/27/17 Cholecalciferol (Vitamin D3) 1,000 unit PO DAILY 12/27/17 [Vitamin D3] Multivitamins [Tab-A-Vit -] 1 tab PO DAILY 12/27/17 REVIEW OF SYSTEMS CONSTITUTIONAL: Absent: fever, chills, diaphoresis, generalized weakness, malaise, loss of appetite, weight change HEENT: Absent: rhinorrhea, nasal congestion, throat pain, throat swelling, difficulty swallowing, mouth swelling, ear pain, eye pain, visual changes CARDIOVASCULAR: Absent: chest pain, syncope, palpitations, irregular heart rate, lightheadedness , peripheral edema RESPIRATORY: Absent: cough, shortness of breath, dyspnea with exertion, orthopnea, wheezing, stridor, hemoptysis GASTROINTESTINAL: Absent: abdominal pain, abdominal distension, nausea, vomiting, diarrhea, constipation, melena, hematochezia GENITOURINARY: Absent: dysuria, frequency, urgency, hesitancy, hematuria, flank pain, genital pain MUSCULOSKELETAL: Absent: myalgia, arthralgia, joint swelling, back pain, neck pain SKIN: Absent: rash, itching, pallor HEMATOLOGIC/IMMUNOLOGIC: Absent: easy bleeding, easy bruising, lymphadenopathy, frequent infections ENDOCRINE: Absent: unexplained weight gain, unexplained weight loss, heat intolerance, cold intolerance NEUROLOGIC: Absent: headache, focal weakness or paresthesias, dizziness, unsteady gait, seizure, mental status changes, bladder or bowel incontinence PSYCHIATRIC: Absent: anxiety, depression, suicidal or homicidal ideation, hallucinations. PHYSICAL EXAMINATION Vital Signs - 24 hr 12/27/17 12/27/17 12/27/17 11:00 11:30 11:32 Temperature 91.5 F L Pulse Rate 56 L 100 H Pulse Rate [ Apical] Respiratory 18 Rate Blood Pressure 103/47 Blood Pressure [Right Arm] O2 Sat by Pulse 100 Oximetry (%) 12/27/17 12/27/17 12/27/17 12:39 12:58 13:21 Temperature 91.3 F L 91.5 F L Pulse Rate Pulse Rate [ 62 58 L 59 L Apical] Respiratory 16 16 16 Rate Blood Pressure Blood Pressure 111/63 100/60 87/50 [Right Arm] O2 Sat by Pulse 100 100 100 Oximetry (%) 12/27/17 12/27/17 12/27/17 13:45 14:01 14:12 Temperature 91.5 F L Pulse Rate 58 L Pulse Rate [ 62 59 L Apical] Respiratory 16 16 Rate Blood Pressure 68/45 Blood Pressure 76/48 84/51 [Right Arm] O2 Sat by Pulse 100 95 Oximetry (%) 12/27/17 12/27/17 12/27/17 14:22 14:37 15:06 Temperature 91.5 F L 92.1 F L 92.5 F L Pulse Rate Pulse Rate [ 59 L 69 76 Apical] Respiratory 16 16 16 Rate Blood Pressure Blood Pressure 81/50 95/49 84/42 [Right Arm] O2 Sat by Pulse 95 95 95 Oximetry (%) 12/27/17 12/27/17 12/27/17 16:02 16:36 16:43 Temperature 93.1 F L 93.6 F L Pulse Rate Pulse Rate [ 70 52 L Apical] Respiratory 16 16 16 Rate Blood Pressure Blood Pressure 99/55 105/52 [Right Arm] O2 Sat by Pulse 95 100 Oximetry (%) 12/27/17 12/27/17 12/27/17 16:54 17:32 17:34 Temperature 93.7 F L Pulse Rate Pulse Rate [ 65 62 Apical] Respiratory 16 16 18 Rate Blood Pressure Blood Pressure 119/62 86/47 [Right Arm] O2 Sat by Pulse 100 100 Oximetry (%) 12/27/17 12/27/17 12/27/17 17:37 18:14 19:09 Temperature 95.0 F L Pulse Rate 70 67 Pulse Rate [ Apical] Respiratory 16 16 Rate Blood Pressure 91/63 Blood Pressure [Right Arm] O2 Sat by Pulse 100 Oximetry (%) GENERAL: Intubated, not alert or oriented EYES: PERRLA ENT: Moist mucus membranes NECK: No JVD LUNGS: mechanical breath sounds HEART: RRR ABDOMEN: Soft, nontender EXTREMITIES: 2+ pulses, 1+ pitting edema NEUROLOGICAL: unable to assess due to mental status - babinski negative Laboratory Results - last 24 hr 12/27/17 12/27/17 12/27/17 11:35 12:10 12:10 WBC 2.6 L D RBC 3.06 L Hgb 9.9 L Hct 28.2 L MCV 91.9 MCH 32.3 MCHC 35.2 RDW 14.3 Plt Count 113 L D MPV 8.8 Neutrophils % 62.3 Lymphocytes % 25.7 Monocytes % 10.3 H Eosinophils % 1.5 Basophils % 0.2 PT with INR INR PTT (Actin FS) Puncture Site ABG pH ABG pCO2 at Pt Temp ABG pO2 at Pt Temp ABG HCO3 ABG O2 Sat (Measured) ABG O2 Content ABG Base Excess Adalberto Test VBG pH POC VBG pCO2 POC VBG pO2 Mixed VBG HCO3 O2 Delivery Device Oxygen Flow Rate Vent Rate Mechanical Rate PEEP Pressure Support Vent Sodium Potassium Chloride Carbon Dioxide Anion Gap BUN Creatinine Creat Clearance w eGFR POC Glucometer 92.38341 Random Glucose Lactic Acid Calcium Total Bilirubin AST ALT Alkaline Phosphatase Troponin I Total Protein Albumin TSH Valproic Acid 21.273 L 12/27/17 12/27/17 12/27/17 12:10 12:10 12:10 WBC RBC Hgb Hct MCV MCH MCHC RDW Plt Count MPV Neutrophils % Lymphocytes % Monocytes % Eosinophils % Basophils % PT with INR 10.50 INR 0.93 D PTT (Actin FS) 36.1 H Puncture Site ABG pH ABG pCO2 at Pt Temp ABG pO2 at Pt Temp ABG HCO3 ABG O2 Sat (Measured) ABG O2 Content ABG Base Excess Adalberto Test VBG pH 7.31 L POC VBG pCO2 48.4 POC VBG pO2 71.2 H Mixed VBG HCO3 23.8 O2 Delivery Device Oxygen Flow Rate Vent Rate Mechanical Rate PEEP Pressure Support Vent Sodium 147 H Potassium 5.0 Chloride 116 H D Carbon Dioxide 24 Anion Gap 7 L BUN 58 H D Creatinine 1.1 Creat Clearance w eGFR > 60 POC Glucometer Random Glucose 82 Lactic Acid Calcium 8.5 Total Bilirubin 0.3 AST 27 D ALT 38 D Alkaline Phosphatase 136 H D Troponin I Total Protein 6.2 L Albumin 2.7 L TSH Valproic Acid 12/27/17 12/27/17 12/27/17 12:10 12:10 15:50 WBC RBC Hgb Hct MCV MCH MCHC RDW Plt Count MPV Neutrophils % Lymphocytes % Monocytes % Eosinophils % Basophils % PT with INR INR PTT (Actin FS) Puncture Site ABG pH ABG pCO2 at Pt Temp ABG pO2 at Pt Temp ABG HCO3 ABG O2 Sat (Measured) ABG O2 Content ABG Base Excess Adalberto Test VBG pH POC VBG pCO2 POC VBG pO2 Mixed VBG HCO3 O2 Delivery Device Oxygen Flow Rate Vent Rate Mechanical Rate PEEP Pressure Support Vent Sodium Potassium Chloride Carbon Dioxide Anion Gap BUN Creatinine Creat Clearance w eGFR POC Glucometer Random Glucose Lactic Acid 0.8 Calcium Total Bilirubin AST ALT Alkaline Phosphatase Troponin I < 0.02 Total Protein Albumin TSH 0.03 L Valproic Acid 12/27/17 19:15 WBC RBC Hgb Hct MCV MCH MCHC RDW Plt Count MPV Neutrophils % Lymphocytes % Monocytes % Eosinophils % Basophils % PT with INR INR PTT (Actin FS) Puncture Site Right radial ABG pH 7.31 L ABG pCO2 at Pt Temp 33.7 L ABG pO2 at Pt Temp 141.0 H ABG HCO3 16.3 L ABG O2 Sat (Measured) 99.6 H* ABG O2 Content 12.0 L ABG Base Excess -8.8 L Adalberto Test Positive VBG pH POC VBG pCO2 POC VBG pO2 Mixed VBG HCO3 O2 Delivery Device Vent esprit Oxygen Flow Rate 50 Vent Rate 16 Mechanical Rate A/c PEEP 5.0 Pressure Support Vent 450 Sodium Potassium Chloride Carbon Dioxide Anion Gap BUN Creatinine Creat Clearance w eGFR POC Glucometer Random Glucose Lactic Acid Calcium Total Bilirubin AST ALT Alkaline Phosphatase Troponin I Total Protein Albumin TSH Valproic Acid CBC, BMP 12/27/17 12:10 12/27/17 12:10 ASSESSMENT/PLAN: 77 year old male with a history of hypothyroidism, dementia, BPH, seizure disorder, depression, urethral stricture, hernia repair presented s/p seizure at senior care and admitted for hypothermia, sepsis, pancreatitis, seizures. #Severe Sepsis 2/2 Pancreatitis: patient has sirs criteria with not a clear source, most identifiable source could be the pancreatitis, but other sources cannot yet be ruled out. -ICU admission -f/u blood culture -f/u urine culture -f/u lactic acid level -vancomycin/zosyn -6 liters of fluid were given -IVF @ 125 cc/hr -NPO (patient intubated) -Depakote discontinued, switched to keppra -f/u US RUQ -f/u lipase -f/u lipid panel -ID consult appreciated -GI consult appreciated #Acute Hypoxic Respiratory Failure: possibly 2/2 sepsis -patient intubated -vent management per ICU team -CXR - bibasilar atelectasis and pleural effusions #Hypotension: improved -patient is on dopamine, ween off as tolerated to keep MAP > 65 #Seizures: not actively seizing -continue keppra -f/u EEG -neuro consult appreciated #Hypothermia: improving, from 91 on admission to currently 95 -likely 2/2 sepsis-like picture -warming blankets #Hypernatremia: free fluid deficit 1.9L -continue NS hydration @ 125cc/hr #Hypothyroid: chronic issue -TSH 0.03 -f/u free T4 -continue synthroid 50mcgs QD #Urethral Stricture: may be cause of bladder outlet obstruction -Urology consultation Dr. Jocelin phillip -alva inserted in ICU #Dementia: chronic issue -not on any current medications #FEN IVF @ 125cc/hr Replete lytes in AM NPO #Prophylaxis -heparin prophylaxis #Disposition -admit to ICU Visit type - Emergency Visit Emergency Visit: Yes ED Registration Date: 12/27/17 Care time: The patient presented to the Emergency Department on the above date and was hospitalized for further evaluation of their emergent condition. - New Patient This patient is new to me today: Yes Date on this admission: 12/27/17 - Critical Care Critical Care patient: Yes Total Critical Care Time (in minutes): 35 Critical Care Statement: The care of this patient involved high complexity decision making to prevent further life threatening deterioration of the patient 's condition and/or to evaluate & treat vital organ system(s) failure or risk of failure. Hospitalist Screening - Colonoscopy Questionnaire Colonoscopy Questionnaire: Colonoscopy Questionnaire - Patient: 50 - 75 years old and never had a screening colonoscopy: Unknown History of colon or rectal polyps, or CA: Unknown History of IBD, Crohn's disease or UC: Unknown History of abdominal radiation therapy as a child: Unknown - Relative: 1 with colon or rectal CA, or polyps at age 60 or younger: Unknown Colon or rectal CA diagnosed at age 45 or younger: Unknown Multiple relatives with colon or rectal CA: Unknown - Outcome: Screening Result: Negative Screen
[2017-12-27] MEDS: MUPIROCIN 2% TOPICAL OINTMENT FOR DECOLONIZATION NS SCH (21:23)
[2017-12-27] MEDS: CHLORHEXIDINE GLUCONATE 4% CLEANSER FOR DECOLONIZATION TP SCH (21:23)
[2017-12-27] MEDS: PIPERACILLIN/TAZOB 3.375 GM 3.375 GM in DEXTROSE 5%-WATER - 50 ML IVPB SCH (21:23)
[2017-12-27 21:42] VITALS: BMI 26.0
[2017-12-27] MEDS: levETIRAcetam 500 MG/5 ML INJECTION VIAL IVPB SCH (22:32)
--- NOTE | 2017-12-27 22:34 | PROC ---
Procedure Note Procedure: Central line placed for pressure support as patient had continued hypotension despite hydration and dopamine administration. Placement confirmed by CXR. Central Line Insertion Indication: Sepsis, Vasopressor Risks and Benefits Explained: Yes Consent on Chart: Yes Central Line: Triple Lumen Catheter Anesthesia: 1% Lidocaine Sterile Technique: Yes Ultrasound Guided Assistance: Yes Position: Right Internal Jugular Post Insertion: Yes: Bilateral Breath Sounds, Bilateral Chest Expansion, Chest X-Ray Ordered Sterile Dressing Applied: Yes
[2017-12-27 22:51] LABS: URINE APPEARANCE SLCLOUDY; URINE BILIRUBIN NEGATIVE (<2.0 mg/dL); URINE COLOR LTYELLOW; URINE GLUCOSE (UA) NEGATIVE (NEGATIVE); URINE KETONE TRACE (NEGATIVE); URINE NITRITE POSITIVE (NEGATIVE); URINE UROBILINOGEN NEGATIVE mg/dL (0.2-1.0)
[2017-12-27 22:53] LABS: URINE LEUK ESTERASE 3+ (NEGATIVE); URINE PROTEIN 1+ (NEGATIVE)
[2017-12-27 23:00] LABS: URINE HYALINE CAST 1 /lpf
[2017-12-27 23:05] LABS: ALBUMIN 2.1 g/dl (3.4-5.0); ANION GAP 9 (8-16); BLOOD UREA NITROGEN 45 mg/dL (7-18); CHLORIDE 123 mmol/L (98-107); CO2 19 mmol/L (21-32); CREATININE 1.2 mg/dL (0.7-1.3); GLUCOSE,RANDOM 78 mg/dL (74-106); POTASSIUM 4.6 mmol/L (3.5-5.1); SGOT/AST 24 U/L (15-37); SGPT/ALT 30 U/L (12-78); SODIUM 151 mmol/L (136-145)
[2017-12-27 23:07] LABS: ALK PHOS 115 U/L (45-117); BILIRUBIN,TOTAL 0.4 mg/dL (0.2-1.0)
[2017-12-27 23:11] LABS: CALCIUM 6.9 mg/dL (8.5-10.1)
--- NOTE | 2017-12-27 23:43 | PN ---
Teaching Attending Note Name of Resident: Armond Garcia ATTENDING PHYSICIAN STATEMENT I saw and evaluated the patient. I reviewed the resident's note and discussed the case with the resident. I agree with the resident's findings and plan as documented. SUBJECTIVE: 77M sent in from [place] for Seizure. in ED intubated for airway protection Unclear duration of seizure at [place]. He has had episodes previously. OBJECTIVE: intial temp 91 degrees F Intubated, minimally reponsive Lungs: CTA Abd: Soft, NTND Ext: 1+ edema alva catheter in place WBC 2.6 BUN 58 Cr 1.1 TSH 0.03 ASSESSMENT AND PLAN: 77M with septic chock, given hypothermia, leukopenia, along with low valproid acid lvl may have triggerred his seizure. no clear etiology yet, CTAP showed pancreatitis but lipase is normal, maybe chronic pancreatitis. admit to ICU broad spectrum abx aggressive IVF rescusitation continue dopamine for now, but if he continues to need increasing pressor support levophed may be better choice follow cultures IV keppra for seizures, Neurology eval
[2017-12-27] MEDS ORDERED: CALCIUM GLUCONATE 10% - 1,000 MG/10 ML VIAL IVPB ONE (23:46)
[2017-12-27] MEDS ORDERED: LACTATED RINGERS SOLUTION 1,000 ML/1,000 ML INFUS.BAG IV STA (23:47)
[2017-12-27] MEDS ORDERED: NOREPINEPHRINE BITARTRATE 4 MG/4 ML ML IV ONE (23:52)
[2017-12-28] MEDS: NOREPINEPHRINE BITARTRATE 4,000 MCG in DEXTROSE 5%-WATER - 496 ML IV SCH ×2 (00:18→13:49)
[2017-12-28] MEDS ORDERED: PIPERACIL/TAZOB 3.375 GM 3.375 GM/50 ML PREMIX IVPB SCH (02:00)
[2017-12-28] MEDS: PIPERACILLIN/TAZOB 3.375 GM 3.375 GM in DEXTROSE 5%-WATER - 50 ML IVPB SCH ×4 (02:48→17:27)
[2017-12-28 06:06] LABS: HEMATOCRIT 26.4 % (35.4-49); HEMOGLOBIN 9.1 GM/dL (11.7-16.9); MCH 32.2 pg (25.7-33.7); MCHC 34.3 g/dl (32.0-35.9); MEAN CELL VOLUME 93.9 fl (80-96); MEAN PLT VOLUME 8.9 fl (7.5-11.1); PLATELET COUNT 133 K/MM3 (134-434); RBC 2.82 M/mm3 (4.00-5.60); RDW 14.9 % (11.9-15.9)
[2017-12-28] MEDS ORDERED: LACTATED RINGERS SOLUTION 1,000 ML/1,000 ML INFUS.BAG IV STA (06:24)
[2017-12-28] MEDS: HEPARIN NA (PORCINE) 5,000 UNITS/ML 1ML VIAL SQ SCH ×3 (06:27→23:03)
[2017-12-28 06:28] LABS: CHLORIDE 125 mmol/L (98-107); POTASSIUM 4.8 mmol/L (3.5-5.1); SODIUM 149 mmol/L (136-145)
[2017-12-28 06:56] LABS: ALK PHOS 112 U/L (45-117); ANION GAP 5 (8-16); BILIRUBIN,TOTAL 0.3 mg/dL (0.2-1.0); BLOOD UREA NITROGEN 40 mg/dL (7-18); CALCIUM 7.4 mg/dL (8.5-10.1); CO2 19 mmol/L (21-32); CREATININE 1.3 mg/dL (0.7-1.3); GLUCOSE,RANDOM 82 mg/dL (74-106); MAGNESIUM 1.6 mg/dL (1.8-2.4); PHOSPHOROUS 2.5 mg/dL (2.5-4.9); SGOT/AST 22 U/L (15-37); SGPT/ALT 30 U/L (12-78); TOT PROT 4.8 g/dl (6.4-8.2)
--- NOTE | 2017-12-28 07:31 | PN ---
Physical Exam: SUBJECTIVE: HPI limited due to pt condition. Briefly, 77yo M with history of seizure disorder (tonic-clonic generalization), hypothyroidism, BPH, severe dementia ( minimally verbal) sent from [place] after witnessed seizure. When arriving in the ED pt was post-ictal and noted to be hypotensive and hypothermic. PT received fluid resuscitation and then was supported with peripheral dopamine gtt. At the bedside, US performed which showed IVC collapse. Pt was then intubated and had central line placed for further pressor support. Pt received Ativan gtt for a brief time due to his seizures last night. OBJECTIVE: Vital Signs Period Temp Pulse Resp BP Sys/[place] Pulse Ox Last 24 Hr 91.3 F-99.1 F 52-100 16-18 68-119/42-64 95-100 GENERAL: Intubated and sedated currently HEENT: Pinpoint pupils, however still reactive currently, sclera anicteric, dry mucosa LUNGS: CTA b/l no rales noted. no rhonchi noted. AC mode HEART: RRR, S1, S2 without murmur ABDOMEN: Soft, nondistended, hypoactive bowel sounds, could not assess tenderness, no guarding, no rebound, no hepatomegaly per palpation EXTREMITIES: 2+ DP pulses, warm, well-perfused, no edema. SKIN: Warm, dry, no rashes or lesions noted Laboratory Results - last 24 hr 12/28/17 05:45 WBC 8.0 D RBC 2.82 L Hgb 9.1 L Hct 26.4 L MCV 93.9 MCH 32.2 MCHC 34.3 RDW 14.9 Plt Count 133 L MPV 8.9 Neutrophils % No Result Required. Lymphocytes % No Result Required. Monocytes % Eosinophils % Basophils % PT with INR INR PTT (Actin FS) Puncture Site ABG pH ABG pCO2 at Pt Temp ABG pO2 at Pt Temp ABG HCO3 ABG O2 Sat (Measured) ABG O2 Content ABG Base Excess Adalberto Test VBG pH POC VBG pCO2 POC VBG pO2 Mixed VBG HCO3 O2 Delivery Device Oxygen Flow Rate Vent Rate Mechanical Rate PEEP Pressure Support Vent Sodium Potassium Chloride Carbon Dioxide Anion Gap BUN Creatinine Creat Clearance w eGFR POC Glucometer Random Glucose Lactic Acid Calcium Total Bilirubin AST ALT Alkaline Phosphatase Troponin I Total Protein Albumin Lipase TSH Free T4 Urine Color Urine Appearance Urine pH Ur Specific [place] Urine Protein Urine Glucose (UA) Urine Ketones Urine Blood Urine Nitrite Urine Bilirubin Urine Urobilinogen Ur Leukocyte Esterase Urine WBC (Auto) Urine RBC (Auto) Hyaline Casts Valproic Acid Active Medications Generic Name Dose Route Start Last Admin Trade Name Nicki PRN Reason Stop Dose Admin Chlorhexidine Gluconate 1 applic 12/27/17 22:00 12/27/17 21:23 Hibiclens For Decolonization - TP 1 applic HS RANDAL Administration Heparin Sodium (Porcine) 5,000 unit 12/28/17 06:00 12/28/17 06:27 Heparin - SQ 5,000 unit TID RANDAL Administration Dopamine HCl/Dextrose 400,000 mcg in 250 mls @ 28.917 mls/hr 12/27/17 14:00 12/28/17 00:19 Dopamine 400 Mg/D5w - IVPB 5 mcg/kg/min TITR RANDAL 14.458 mls/hr Protocol Titration 10 MCG/KG/MIN Piperacillin Sod/Tazobactam 50 mls @ 100 mls/hr 12/27/17 20:30 12/28/17 02:48 Sod 3.375 gm/ Dextrose IVPB 12/28/17 10:29 100 mls/hr Q8H-IV RANDAL Administration Piperacillin Sod/Tazobactam 50 mls @ 100 mls/hr 12/28/17 02:00 Sod 3.375 gm/ Dextrose IVPB Q8H-IV RANDAL Norepinephrine Bitartrate 4, 500 mls @ 37.5 mls/hr 12/27/17 23:45 12/28/17 00 :18 000 mcg/ Dextrose IV 5 mcg/min TITR RANDAL 37.5 mls/hr Protocol Administration 5 MCG/MIN Levetiracetam 750 mg 12/27/17 22:00 12/27/17 22:32 Keppra Injection - IVPB 750 mg BID RANDAL Administration Lorazepam 2 mg 12/27/17 20:02 Ativan Injection - IVPUSH DAILY PRN AGITATION Mupirocin 1 applic 12/27/17 22:00 12/27/17 21:23 Bactroban Ointment (For Decolonization) - NS 01/01/18 21:59 1 applic BID RANDAL Administration ASSESSMENT/PLAN: Neuro: Continue to hold sedation until pt's mental status is assessed Seizure disorder: --Continue Keppra 750mg BID IVPB Respiratory: Respiratory failure --Continue AC vent mode --Wean if tolerated --Aspiration precautions --ABG today for assessment of normalizing values --pO2 160 --FiO2 decreased to 40% due to avoidance of oxygen toxicity and/or VQ mismatches Cardiovascular Shock --Most likely septic shock, however hypovolemic not totally out of question --Continue Levophed @5mcg --Continue Dopamine @ 5mcg --Wean as tolerated GI: Chronic pancreatitis --Lipase WNL --Noted on CT scan: no pseudocysts or necrotic pancreas noted on imaging --Doubt exacerbation, but will keep npo and fluid hydrate as would benefit both sepsis and pancreatitis --See Fluids below ID: Septic shock 2/2 questionable UTI? --UTI noted on UA --ID on board --Zosyn 3.375 q8h to continue --F/u cultures --Continue alva currently FEN: Fluids: Bolus the rest of 750cc of LR, then restart fluids at 150cc/hr (goal CVP 8-12) Electrolyte abnormalities: HypoMg (repleted) Nutrition: NPO (intubated still) PPX: DVT - Heparin SQ GI - Add Protonix 40mg qDaily IVP HCP (son, Stevie Lu) - [phone] Dispo: Continue ICU monitoring; fluid resuscitate and try to wean off pressors Case discussed with Dr. Isak Harvey, DO - IM PGY-1 Visit type - Emergency Visit Emergency Visit: No - New Patient This patient is new to me today: No - Critical Care Critical Care patient: Yes Total Critical Care Time (in minutes): 38 Critical Care Statement: The care of this patient involved high complexity decision making to prevent further life threatening deterioration of the patient 's condition and/or to evaluate & treat vital organ system(s) failure or risk of failure.
[2017-12-28] MEDS: LACTATED RINGERS SOLUTION 1,000 ML/1,000 ML INFUS.BAG IV SCH ×2 (08:58→16:01)
[2017-12-28] MEDS ORDERED: MAGNESIUM 1GM/D5W 100ML - 100 ML IVPB IVPB ONE (09:00)
--- NOTE | 2017-12-28 09:04 | CON.GU ---
Consult Consult Specialty:: Referred by:: Pool - History of Present Illness Chief Complaint: sz History of Present Illness: 77 year old male with a history of hypothyroidism, dementia, BPH, seizure disorder, depression, urethral stricture, hernia repair came from [facility] s/p witnessed seizure, lethargy, and unresponsiveness. According to patient's son, patient only started having seizures when he moved into [facility] and has had 2-3 total, the last one being 6 months ago. Patient has been on Depakote in the nursing facility. Patient's son reports that he may have been complaining of vague abdominal pain for the past 3 weeks. At baseline , patient is mildly responsive, but does not communicate well or respond to simple commands. In the ED, patient was found to be hypothermic to 91 degrees, bradycardic, and hypotensive. His depakote level was found to be low. Patient was worked up for sepsis. His WBCs were low at 2.6. he was started on vanc/ zosyn and given 6 liters of fluids. His abdominal CT showed evidence of pancreatitis and bladder outlet obstruction. Pt was found to have urethral stricture and difficulty inserting a alva and cons req - History Source History Provided By: Medical Record - Past Medical History PHARMACY CARE COORDINATOR: Yes: Dementia, Seizure Renal/: Yes: BPH Endocrine: Yes: Hypothyroidism - Alcohol/Substance Use Hx Alcohol Use: No - Smoking History Smoking history: Unknown if ever smoked Have you smoked in the past 12 months: No Home Medications - Allergies Allergies/Adverse Reactions: Allergies Allergy/AdvReac Type Severity Reaction Status Date / Time No Known Allergies Allergy Verified 03/16/17 11:59 - Home Medications Home Medications: Ambulatory Orders Acetaminophen [Tylenol .Regular Strength -] 650 mg PO TID PRN 01/08/14 Melatonin 2 mg PO HS 01/08/14 Tamsulosin HCl [Flomax -] 0.4 mg PO HS 04/18/14 Levothyroxine [Synthroid -] 50 mcg PO DAILY 07/09/14 Amlodipine Besylate 5 mg PO DAILY 09/10/16 Benztropine Mesylate 1 mg PO BID 09/10/16 Polyethylene Glycol 3350 [Miralax (For Daily Use) -] 17 gm PO DAILY 09/10/16 Valproic Acid (As Sodium Salt) [Valproic Acid] 500 mg PO BID 09/10/16 Ascorbic Acid [Vitamin C] 500 mg PO DAILY 12/27/17 Aspirin [Aspirin EC] 81 mg PO DAILY 12/27/17 Cholecalciferol (Vitamin D3) [Vitamin D3] 1,000 unit PO DAILY 12/27/17 Multivitamins [Tab-A-Vit -] 1 tab PO DAILY 12/27/17 Physical Exam- Vital Signs: Vital Signs Temperature 98.2 F 12/28/17 08:00 Pulse Rate 62 12/28/17 08:00 Respiratory Rate 16 12/28/17 08:00 Blood Pressure 104/54 12/28/17 08:00 O2 Sat by Pulse Oximetry (%) 100 12/28/17 08:00 Renal/: Yes: Alva Present Penis: Yes: Paraphimosis (reduced). No: Other Prostate Exam: Yes: Swollen Labs: CBC, BMP 12/28/17 05:45 12/28/17 05:45 Imaging - Results Cat Scan: Report Reviewed, Other ( Patient Name: Kirk Lu : 1939 ID: [id number] Study Date: 27-Dec-2017 15:46 Srinivasan Pavilidoron Name : [facility] DEPARTMENT OF RADIOLOGY Phys: RikiRaquel shetty TAWNYA : Age: 77 Sex: M [facility] Acct: [id number] Loc: [address] Exam Date: 12/27/17 Status: [place] [address] Unit Number: [id number] EXAM#: TYPE/EXAM: RESULT: [id number] CT/ABDOMEN PELVIS CT W/O CONTR INDICATION: Questionable bladder mass on bedside sonogram. TECHNIQUE: CT scan of the abdomen and pelvis without oral contrast and without intravenous contrast. COMPARISON: None available. FINDINGS: Evaluation of the solid viscera, bowel and vessels is limited without contrast. There are bilateral small layering pleural effusions with subsegmental compressive atelectasis in both lung bases. There is bronchial wall thickening with impacted distal airways in both lung bases. There is scarring versus atelectasis in the right middle lobe and lingula. Normal liver size and contour. Moderate gallbladder distention could be physiologic. The common bile duct is not dilated. There is a fat stranding and fluid surrounding the pancreas , extending anteriorly along the undersurface of the gastric antrum. Normal size spleen. No adrenal gland mass. There are nonobstructing calculi in the upper pole and midpole of the left calyx, measuring up to 8 mm. There are no right renal calculi or ureteral calculi. There is no hydronephrosis. There is mild symmetric distention of bilateral ureters. Normal caliber abdominal aorta. There are no definite pathologically enlarged lymph nodes by CT size criteria within the abdomen or pelvis. There are no pathologically dilated loops of large or small bowel to suggest obstruction. A rectal temperature probe is noted. The sigmoid colon is redundant. There is no free intraperitoneal air or ascites. The prostate gland is enlarged, indenting the base the urinary bladder. There is circumferential thickening of the urinary bladder wall. There is a subcentimeter left anterolateral urinary bladder wall diverticulum. There is a small left inguinal hernia containing fat only. There is osseous demineralization. There is compression of the L1 superior endplate involving the anterior two thirds of the vertebral body, with mild loss of height and fracture lines in the superior endplate. Sclerotic changes in the superior endplate reflect a zone of trabecular impaction. There is spondylosis in the visualized thoracic spine and lumbar spine with moderate canal stenosis at L3-L4 and L4-L5 secondary to bulging annulus, facet arthropathy and thickening of ligamentum flavum. IMPRESSION: 1. Peripancreatic fat stranding and fluid is compatible with pancreatitis. Please correlate clinically with pancreatic enzymes. Underlying pancreatic mass cannot be excluded. 2. Enlarged prostate gland indenting the base the urinary bladder. Please correlate with PSA and physical exam. 3. Circumferential wall thickening in the urinary bladder could be secondary to chronic urinary bladder outlet obstruction and/or cystitis. Cystoscopy is more sensitive in detecting urinary bladder masses. Please correlate clinically, with urinalysis. 4. Nonobstructing left nephrolithiasis measuring up to 8 mm. No hydronephrosis. Mild symmetric distention of the ureters could be physiologic and/or secondary to urinary bladder outlet obstruction. 5. Moderate gallbladder distention could be physiologic. Please correlate for prolonged fasting. If there is clinical concern for cholecystitis, then a right upper quadrant ultrasound may be obtained. 6. Small bilateral layering pleural effusions with subsegmental compressive atelectasis in the lung bases. Bronchial wall thickening with impacted distal airways in both lung bases. 7. L1 compression fracture with mild loss of height as described above with no significant osseous retropulsion may be acute or subacute. Correlate clinically. Reported By: Taylor Vela DO 12/27/171622 Technologist: Maritza Whitmore Transcribed Date/Time: 12/27/171622 Mammography Technician: Taylor Vela DO Printed Date/Time: By:) Problem List - Problems (1) Paraphimosis Assessment/Plan: reduced Code(s): N47.2 - PARAPHIMOSIS (2) BPH (benign prostatic hyperplasia) Code(s): N40.0 - BENIGN PROSTATIC HYPERPLASIA WITHOUT LOWER URINRY TRACT SYMP (3) Urethral stricture Assessment/Plan: i will dilate his urethra and insert a larger alva Code(s): N35.9 - URETHRAL STRICTURE, UNSPECIFIED (4) UTI (urinary tract infection) Assessment/Plan: ur c+s, iv abxs Code(s): N39.0 - URINARY TRACT INFECTION, SITE NOT SPECIFIED
--- NOTE | 2017-12-28 09:32 | PN ---
Progress Note (short form) - Note Progress Note: ID consult dictated imp/reccd sepsis- most likely due to uti, requiring pressors seizures-known seizure disorder urethral stricture- difficulty placing alva catheter respiratory failure-intubated for lethargy/airway protection in ed leukopenia- chronic, ?meds anemia- new received vancomycin and zosyn in ED continue zosyn, continue ivf, pressors urology to evaluate neurology to evaluate seizure disorder at baseline has dementia- alert disoriented, needs help with ADLS and meals does not ambulate independently overall prognosis is guarded over 40 minutes spent in the care of this critically ill ICU patient Problem List - Problems (1) Sepsis Code(s): A41.9 - SEPSIS, UNSPECIFIED ORGANISM (2) UTI (urinary tract infection) Code(s): N39.0 - URINARY TRACT INFECTION, SITE NOT SPECIFIED (3) Seizure Code(s): R56.9 - UNSPECIFIED CONVULSIONS (4) Anemia Code(s): D64.9 - ANEMIA, UNSPECIFIED (5) Respiratory failure, acute Code(s): J96.00 - ACUTE RESPIRATORY FAILURE, UNSP W HYPOXIA OR HYPERCAPNIA
[2017-12-28 09:50] LABS: ARTERIAL BLD GAS O2 SATURATION 99.9 % (90-98.9); ARTERIAL BLOOD GAS BASE EXCESS -6.2 meq/l (-2-2); ARTERIAL BLOOD GAS PCO2 29.3 mmHg (35-45); ARTERIAL BLOOD GAS pH 7.39 (7.35-7.45)
[2017-12-28 09:51] LABS: ALLENS TEST POSITIVE
--- NOTE | 2017-12-28 10:09 | PN ---
Progress Note, Physician History of Present Illness: patient seen and examined in ICU. Chart reviewed. Emergency room records reviewed In summary--per ER notes 77 year old male with a history of hypothyroidism, dementia, BPH, seizure disorder, depression, urethral stricture, hernia repair came from [facility] s/p witnessed seizure, lethargy, and unresponsiveness. According to patient's son, patient only started having seizures when he moved into [facility] and has had 2-3 total, the last one being 6 months ago. Patient has been on Depakote in the nursing facility. Patient's son reports that he may have been complaining of vague abdominal pain for the past 3 weeks. At baseline , patient is mildly responsive, but does not communicate well or respond to simple commands. In the ED, patient was found to be hypothermic to 91 degrees, bradycardic, and hypotensive. His depakote level was found to be low. Patient was worked up for sepsis. His WBCs were low at 2.6. he was started on vanc/ zosyn and given 6 liters of fluids. His abdominal CT showed evidence of pancreatitis and bladder outlet obstruction. ER course was notable for: (1) WBCs low (2) pancreatitis on CT (3) acute hypoxic respiratory failure patient intubated/sedated/. On IV antibiotics Pressure support - Current Medication List Current Medications: Active Medications Chlorhexidine Gluconate (Hibiclens For Decolonization -) 1 applic TP HS [facility] Last Admin: 12/27/17 21:23 Dose: 1 applic Heparin Sodium (Porcine) (Heparin -) 5,000 unit SQ TID RANDAL Last Admin: 12/28/17 06:27 Dose: 5,000 unit Dopamine HCl/Dextrose (Dopamine 400 Mg/D5w -) 400,000 mcg in 250 mls @ 28.917 mls/hr IVPB TITR RANDAL; 10 MCG/KG/MIN PRN Reason: Protocol Last Titration: 12/28/17 00:19 Dose: 5 mcg/kg/min, 14.458 mls/hr Piperacillin Sod/Tazobactam (Sod 3.375 gm/ Dextrose) 50 mls @ 100 mls/hr IVPB Q8H-IV RANDAL Stop: 12/28/17 10:29 Last Admin: 12/28/17 02:48 Dose: 100 mls/hr Piperacillin Sod/Tazobactam (Sod 3.375 gm/ Dextrose) 50 mls @ 100 mls/hr IVPB Q8H-IV RANDAL Norepinephrine Bitartrate 4, (000 mcg/ Dextrose) 500 mls @ 37.5 mls/hr IV TITR RANDAL; 5 MCG/MIN PRN Reason: Protocol Last Admin: 12/28/17 00:18 Dose: 5 mcg/min, 37.5 mls/hr Lactated Ringer's (Lactated Ringers Solution) 1,000 ml in 1,000 mls @ 150 mls/ hr IV ASDIR RANDAL Last Admin: 12/28/17 08:58 Dose: 150 mls/hr Levetiracetam (Keppra Injection -) 750 mg IVPB BID RANDAL Last Admin: 12/27/17 22:32 Dose: 750 mg Lorazepam (Ativan Injection -) 2 mg IVPUSH DAILY PRN PRN Reason: AGITATION Mupirocin (Bactroban Ointment (For Decolonization) -) 1 applic NS BID RANDAL Stop: 01/01/18 21:59 Last Admin: 12/27/17 21:23 Dose: 1 applic - Objective Vital Signs: Vital Signs Temperature 98.2 F 12/28/17 08:00 Pulse Rate 62 12/28/17 08:00 Respiratory Rate 16 12/28/17 08:36 Blood Pressure 104/54 12/28/17 08:00 O2 Sat by Pulse Oximetry (%) 100 12/28/17 08:00 Constitutional: Yes: Other (Intubated and sedated) Eyes: Yes: Other (pupils reactive) Neck: Yes: Supple Cardiovascular: Yes: Regular Rate and Rhythm Respiratory: Yes: Diminished Gastrointestinal: Yes: Soft Edema: No Neurological: Yes: Other (sedated) Labs: CBC, BMP 12/28/17 05:45 12/28/17 05:45 INR, PTT INR 0.93 (0.82-1.09) D 12/27/17 12:10 Problem List - Problems (1) Dementia Code(s): F03.90 - UNSPECIFIED DEMENTIA WITHOUT BEHAVIORAL DISTURBANCE (2) Hypothermia Code(s): T68.XXXA - HYPOTHERMIA, INITIAL ENCOUNTER Qualifiers: Encounter type: initial encounter Qualified Code(s): T68.XXXA - Hypothermia , initial encounter (3) Hypovolemic shock Code(s): R57.1 - HYPOVOLEMIC SHOCK (4) Pancreatitis Code(s): K85.90 - ACUTE PANCREATITIS WITHOUT NECROSIS OR INFECTION, UNSP (5) Paraphimosis Code(s): N47.2 - PARAPHIMOSIS (6) Seizure Code(s): R56.9 - UNSPECIFIED CONVULSIONS (7) Septic shock Code(s): A41.9 - SEPSIS, UNSPECIFIED ORGANISM; R65.21 - SEVERE SEPSIS WITH SEPTIC SHOCK (8) UTI (urinary tract infection) Code(s): N39.0 - URINARY TRACT INFECTION, SITE NOT SPECIFIED (9) Urethral stricture Code(s): N35.9 - URETHRAL STRICTURE, UNSPECIFIED Assessment/Plan continue present care Antibiotics Follow-up cultures Pressure support ventilation support Weaning as tolerated Neurology consult pending GI consult also requested and pending Also discussed with --will need opening of urethral stricture Continue present care for now Condition critical. Discussed with nursing staff Critical care time--- 35 minutes. Will follow.
--- NOTE | 2017-12-28 10:18 | CON.GI ---
Consult Consult Specialty:: GI Reason for Consultation:: Abnorma CT, pancreatitis - History of Present Illness History of Present Illness: Chart reviewed. Events noted. per ED: 77 year old male with a history of hypothyroidism, dementia, BPH, seizure disorder, depression, urethral stricture, hernia repair came from [facility] s/p witnessed seizure, lethargy, and unresponsiveness. According to patient's son, patient only started having seizures when he moved into [facility] and has had 2-3 total, the last one being 6 months ago. Patient has been on Depakote in the nursing facility. Patient's son reports that he may have been complaining of vague abdominal pain for the past 3 weeks. At baseline , patient is mildly responsive, but does not communicate well or respond to simple commands. In the ED, patient was found to be hypothermic to 91 degrees, bradycardic, and hypotensive. His depakote level was found to be low. Patient was worked up for sepsis. His WBCs were low at 2.6. he was started on vanc/ zosyn and given [address] peripancreatic fat stranding with free fluid. Normal Lipase, liver chemistry US CBD, GB w/o pathology See in the ICU. Sedated, receiving dopamine and abx among other medications. 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: Dementia, Seizure Renal/: Yes: BPH Endocrine: Yes: Hypothyroidism - Alcohol/Substance Use Hx Alcohol Use: No - Smoking History Smoking history: Unknown if ever smoked Have you smoked in the past 12 months: No Home Medications - Allergies Allergies/Adverse Reactions: Allergies Allergy/AdvReac Type Severity Reaction Status Date / Time No Known Allergies Allergy Verified 03/16/17 11:59 - Home Medications Home Medications: Ambulatory Orders Acetaminophen [Tylenol .Regular Strength -] 650 mg PO TID PRN 01/08/14 Melatonin 2 mg PO HS 01/08/14 Tamsulosin HCl [Flomax -] 0.4 mg PO HS 04/18/14 Levothyroxine [Synthroid -] 50 mcg PO DAILY 07/09/14 Amlodipine Besylate 5 mg PO DAILY 09/10/16 Benztropine Mesylate 1 mg PO BID 09/10/16 Polyethylene Glycol 3350 [Miralax (For Daily Use) -] 17 gm PO DAILY 09/10/16 Valproic Acid (As Sodium Salt) [Valproic Acid] 500 mg PO BID 09/10/16 Ascorbic Acid [Vitamin C] 500 mg PO DAILY 12/27/17 Aspirin [Aspirin EC] 81 mg PO DAILY 12/27/17 Cholecalciferol (Vitamin D3) [Vitamin D3] 1,000 unit PO DAILY 12/27/17 Multivitamins [Tab-A-Vit -] 1 tab PO DAILY 12/27/17 Family Disease History - Family Disease History Family History: Unremarkable Review of Systems Findings/Remarks: as per HPI/H&P Physical Exam-GI Vital Signs: Vital Signs Temperature 98.2 F 12/28/17 08:00 Pulse Rate 62 12/28/17 08:00 Respiratory Rate 16 12/28/17 08:36 Blood Pressure 104/54 12/28/17 08:00 O2 Sat by Pulse Oximetry (%) 100 12/28/17 08:00 Constitutional: Yes: Calm, Obese. No: Diaphoresis, Pallor Eyes: Yes: Conjunctiva Clear HENT: Yes: Atraumatic Neck: Yes: Supple Cardiovascular: No: Bradycardia, Tachycardia Respiratory: Yes: Mechanically Ventilated Gastrointestinal Inspection: Yes: Distention ...Palpate: Yes: Soft. No: Firm/Rigid, Mass, Pulsatile Mass Edema: No Neurological: Yes: Other (sedated) Labs: CBC, BMP 12/28/17 05:45 12/28/17 05:45 INR, PTT INR 0.93 (0.82-1.09) D 12/27/17 12:10 Laboratory Tests 12/27/17 12/27/17 12/27/17 11:35 12:10 12:10 WBC 2.6 L D RBC 3.06 L Hgb 9.9 L Hct 28.2 L MCV 91.9 MCH 32.3 MCHC 35.2 RDW 14.3 Plt Count 113 L D MPV 8.8 Neutrophils % 62.3 Lymphocytes % 25.7 Monocytes % 10.3 H Eosinophils % 1.5 Basophils % 0.2 PT with INR INR PTT (Actin FS) Anticoagulation Therapy Puncture Site ABG pH ABG pCO2 at Pt Temp ABG pO2 at Pt Temp ABG HCO3 ABG O2 Sat (Measured) ABG O2 Content ABG Base Excess Adalberto Test VBG pH POC VBG pCO2 POC VBG pO2 Mixed VBG HCO3 O2 Delivery Device Oxygen Flow Rate Vent Mode Vent Rate Mechanical Rate PEEP Pressure Support Vent Sodium Potassium Chloride Carbon Dioxide Anion Gap BUN Creatinine Creat Clearance w eGFR POC Glucometer [id number] Random Glucose Lactic Acid Calcium Phosphorus Magnesium Total Bilirubin AST ALT Alkaline Phosphatase Troponin I Total Protein Albumin Lipase TSH Free T4 Urine Color Urine Appearance Urine pH Ur Specific Screven Urine Protein Urine Glucose (UA) Urine Ketones Urine Blood Urine Nitrite Urine Bilirubin Urine Urobilinogen Ur Leukocyte Esterase Urine WBC (Auto) Urine RBC (Auto) Hyaline Casts Valproic Acid 21.273 L 12/27/17 12/27/17 12/27/17 12:10 12:10 12:10 WBC RBC Hgb Hct MCV MCH MCHC RDW Plt Count MPV Neutrophils % Lymphocytes % Monocytes % Eosinophils % Basophils % PT with INR 10.50 INR 0.93 D PTT (Actin FS) 36.1 H Anticoagulation Therapy Puncture Site ABG pH ABG pCO2 at Pt Temp ABG pO2 at Pt Temp ABG HCO3 ABG O2 Sat (Measured) ABG O2 Content ABG Base Excess Adalberto Test VBG pH 7.31 L POC VBG pCO2 48.4 POC VBG pO2 71.2 H Mixed VBG HCO3 23.8 O2 Delivery Device Oxygen Flow Rate Vent Mode Vent Rate Mechanical Rate PEEP Pressure Support Vent Sodium 147 H Potassium 5.0 Chloride 116 H D Carbon Dioxide 24 Anion Gap 7 L BUN 58 H D Creatinine 1.1 Creat Clearance w eGFR > 60 POC Glucometer Random Glucose 82 Lactic Acid Calcium 8.5 Phosphorus Magnesium Total Bilirubin 0.3 AST 27 D ALT 38 D Alkaline Phosphatase 136 H D Troponin I Total Protein 6.2 L Albumin 2.7 L Lipase TSH Free T4 Urine Color Urine Appearance Urine pH Ur Specific Screven Urine Protein Urine Glucose (UA) Urine Ketones Urine Blood Urine Nitrite Urine Bilirubin Urine Urobilinogen Ur Leukocyte Esterase Urine WBC (Auto) Urine RBC (Auto) Hyaline Casts Valproic Acid 12/27/17 12/27/17 12/27/17 12:10 12:10 15:50 WBC RBC Hgb Hct MCV MCH MCHC RDW Plt Count MPV Neutrophils % Lymphocytes % Monocytes % Eosinophils % Basophils % PT with INR INR PTT (Actin FS) Anticoagulation Therapy Puncture Site ABG pH ABG pCO2 at Pt Temp ABG pO2 at Pt Temp ABG HCO3 ABG O2 Sat (Measured) ABG O2 Content ABG Base Excess Adalberto Test VBG pH POC VBG pCO2 POC VBG pO2 Mixed VBG HCO3 O2 Delivery Device Oxygen Flow Rate Vent Mode Vent Rate Mechanical Rate PEEP Pressure Support Vent Sodium Potassium Chloride Carbon Dioxide Anion Gap BUN Creatinine Creat Clearance w eGFR POC Glucometer Random Glucose Lactic Acid 0.8 Calcium Phosphorus Magnesium Total Bilirubin AST ALT Alkaline Phosphatase Troponin I < 0.02 Total Protein Albumin Lipase TSH 0.03 L Free T4 Urine Color Urine Appearance Urine pH Ur Specific Screven Urine Protein Urine Glucose (UA) Urine Ketones Urine Blood Urine Nitrite Urine Bilirubin Urine Urobilinogen Ur Leukocyte Esterase Urine WBC (Auto) Urine RBC (Auto) Hyaline Casts Valproic Acid 12/27/17 12/27/17 12/27/17 19:15 22:26 22:26 WBC RBC Hgb Hct MCV MCH MCHC RDW Plt Count MPV Neutrophils % Lymphocytes % Monocytes % Eosinophils % Basophils % PT with INR INR PTT (Actin FS) Anticoagulation Therapy Puncture Site Right radial ABG pH 7.31 L ABG pCO2 at Pt Temp 33.7 L ABG pO2 at Pt Temp 141.0 H ABG HCO3 16.3 L ABG O2 Sat (Measured) 99.6 H* ABG O2 Content 12.0 L ABG Base Excess -8.8 L Adalberto Test Positive VBG pH POC VBG pCO2 POC VBG pO2 Mixed VBG HCO3 O2 Delivery Device Vent esprit Oxygen Flow Rate 50 Vent Mode Vent Rate 16 Mechanical Rate A/c PEEP 5.0 Pressure Support Vent 450 Sodium Potassium Chloride Carbon Dioxide Anion Gap BUN Creatinine Creat Clearance w eGFR POC Glucometer Random Glucose Lactic Acid 0.7 Calcium Phosphorus Magnesium Total Bilirubin AST ALT Alkaline Phosphatase Troponin I Total Protein Albumin Lipase TSH Free T4 1.55 H Urine Color Urine Appearance Urine pH Ur Specific Screven Urine Protein Urine Glucose (UA) Urine Ketones Urine Blood Urine Nitrite Urine Bilirubin Urine Urobilinogen Ur Leukocyte Esterase Urine WBC (Auto) Urine RBC (Auto) Hyaline Casts Valproic Acid 12/27/17 12/27/17 12/27/17 22:26 22:26 22:29 WBC RBC Hgb Hct MCV MCH MCHC RDW Plt Count MPV Neutrophils % Lymphocytes % Monocytes % Eosinophils % Basophils % PT with INR INR PTT (Actin FS) Anticoagulation Therapy Puncture Site ABG pH ABG pCO2 at Pt Temp ABG pO2 at Pt Temp ABG HCO3 ABG O2 Sat (Measured) ABG O2 Content ABG Base Excess Adalberto Test VBG pH POC VBG pCO2 POC VBG pO2 Mixed VBG HCO3 O2 Delivery Device Oxygen Flow Rate Vent Mode Vent Rate Mechanical Rate PEEP Pressure Support Vent Sodium 151 H Potassium 4.6 Chloride 123 H Carbon Dioxide 19 L D Anion Gap 9 BUN 45 H D Creatinine 1.2 Creat Clearance w eGFR 59.02 POC Glucometer Random Glucose 78 Lactic Acid Calcium 6.9 L* Phosphorus Magnesium Total Bilirubin 0.4 D AST 24 ALT 30 D Alkaline Phosphatase 115 Troponin I Total Protein 5.0 L Albumin 2.1 L D Lipase 117 TSH Free T4 Urine Color Ltyellow Urine Appearance Slcloudy Urine pH 6.0 Ur Specific Screven 1.013 Urine Protein 1+ H Urine Glucose (UA) Negative Urine Ketones Trace H Urine Blood 1+ H Urine Nitrite Positive Urine Bilirubin Negative Urine Urobilinogen Negative Ur Leukocyte Esterase 3+ H Urine WBC (Auto) 74 Urine RBC (Auto) 1 Hyaline Casts 1 Valproic Acid 12/28/17 12/28/17 12/28/17 05:45 05:45 08:36 WBC 8.0 D RBC 2.82 L Hgb 9.1 L Hct 26.4 L MCV 93.9 MCH 32.2 MCHC 34.3 RDW 14.9 Plt Count 133 L MPV 8.9 Neutrophils % No Result Required. Lymphocytes % No Result Required. Monocytes % Eosinophils % Basophils % PT with INR INR PTT (Actin FS) Anticoagulation Therapy No Result Required. Puncture Site Left radial ABG pH 7.39 ABG pCO2 at Pt Temp 29.3 L ABG pO2 at Pt Temp 160.0 H* ABG HCO3 17.4 L ABG O2 Sat (Measured) 99.9 H* ABG O2 Content 12.3 L ABG Base Excess -6.2 L Adalberto Test Positive VBG pH POC VBG pCO2 POC VBG pO2 Mixed VBG HCO3 O2 Delivery Device Vent Oxygen Flow Rate 40% Vent Mode A/c Vent Rate 16 Mechanical Rate Yes PEEP 5.0 Pressure Support Vent 450 Sodium 149 H Potassium 4.8 Chloride 125 H Carbon Dioxide 19 L Anion Gap 5 L BUN 40 H Creatinine 1.3 Creat Clearance w eGFR 53.82 POC Glucometer Random Glucose 82 Lactic Acid Calcium 7.4 L Phosphorus 2.5 Magnesium 1.6 L Total Bilirubin 0.3 D AST 22 ALT 30 Alkaline Phosphatase 112 Troponin I Total Protein 4.8 L Albumin 2.0 L Lipase TSH Free T4 Urine Color Urine Appearance Urine pH Ur Specific Screven Urine Protein Urine Glucose (UA) Urine Ketones Urine Blood Urine Nitrite Urine Bilirubin Urine Urobilinogen Ur Leukocyte Esterase Urine WBC (Auto) Urine RBC (Auto) Hyaline Casts Valproic Acid Imaging - Results Cat Scan: Report Reviewed (1. Peripancreatic fat stranding and fluid is compatible with pancreatitis. Please correlate clinically with pancreatic enzymes. Underlying pancreatic mass cannot be excluded. 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 Enlarged prostate gland indenting the base the urinary bladder. Please correlate with PSA and physical exam. 3. Circumferential wall thickening in the urinary bladder could be secondary to chronic urinary bladder outlet obstruction and/or cystitis. Cystoscopy is more sensitive in detecting urinary bladder masses. Please correlate clinically, with urinalysis. 4. Nonobstructing left nephrolithiasis measuring up to 8 mm. No hydronephrosis. Mild symmetric distention of the ureters could be physiologic and/or secondary to urinary bladder outlet obstruction. 5. Moderate gallbladder distention could be physiologic. Please correlate for prolonged fasting. If there is clinical concern for cholecystitis , then a right upper quadrant ultrasound may be obtained. 6. Small bilateral layering pleural effusions with subsegmental compressive atelectasis in the lung bases. Bronchial wall thickening with impacted distal airways in both lung bases. 7. L1 compression fracture with mild loss of height as described above with no significant osseous retropulsion may be acute or subacute. Correlate clinically.) Ultrasound: Report Reviewed (IMPRESSION: Markedly limited study with no gross evidence of acute pathology. Please see above discussion.) Problem List - Problems (1) Septic shock Code(s): A41.9 - SEPSIS, UNSPECIFIED ORGANISM; R65.21 - SEVERE SEPSIS WITH SEPTIC SHOCK (2) Pancreatitis Code(s): K85.90 - ACUTE PANCREATITIS WITHOUT NECROSIS OR INFECTION, UNSP (3) Hypovolemic shock Code(s): R57.1 - HYPOVOLEMIC SHOCK (4) Respiratory failure, acute Code(s): J96.00 - ACUTE RESPIRATORY FAILURE, UNSP W HYPOXIA OR HYPERCAPNIA Assessment/Plan ? septic shock (? source) resulting in pancreatic edema vs acute pancreatitis with multi-organ failure. Normal lipase, and liver chemistry, including ALP, and bilirubin. Valproate at low level on admission, was switched to Keppra on admission. Imaging is negative for acute cholecytitis, choledocolithiasis. No history of chronic, or acute pancreatitis, ETOH abuse, gallstones/GB issues. Agree with aggressive hydration, antibiotics as per ID and IC as per ICU team. Would defer pancreatico-biliary imaging until stable CMP, direct bili, lipase daily. Tg, IgG4, CMV, EBV Will follow closely
--- NOTE | 2017-12-28 10:28 | CON.NEURO ---
Consult Consult Specialty:: NEUROLOGY-MIREYA SHIELDS - History of Present Illness History of Present Illness: Pt. has a hx. of seizures, has had 3-4 starting 9 months ago in [place], never prior as per house staff.admitted with septic chock, given hypothermia, leukopenia, along with low valproid acid lvl may have triggerred his seizure. no clear etiology yet, CTAP showed pancreatitis but lipase is normal, maybe chronic pancreatitis. Given VPA in ER. Now is intubated, sedated. 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: Dementia, Seizure Renal/: Yes: BPH Endocrine: Yes: Hypothyroidism - Alcohol/Substance Use Hx Alcohol Use: No - Smoking History Smoking history: Unknown if ever smoked Have you smoked in the past 12 months: No Home Medications - Allergies Allergies/Adverse Reactions: Allergies Allergy/AdvReac Type Severity Reaction Status Date / Time No Known Allergies Allergy Verified 03/16/17 11:59 - Home Medications Home Medications: Ambulatory Orders Acetaminophen [Tylenol .Regular Strength -] 650 mg PO TID PRN 01/08/14 Melatonin 2 mg PO HS 01/08/14 Tamsulosin HCl [Flomax -] 0.4 mg PO HS 04/18/14 Levothyroxine [Synthroid -] 50 mcg PO DAILY 07/09/14 Amlodipine Besylate 5 mg PO DAILY 09/10/16 Benztropine Mesylate 1 mg PO BID 09/10/16 Polyethylene Glycol 3350 [Miralax (For Daily Use) -] 17 gm PO DAILY 09/10/16 Valproic Acid (As Sodium Salt) [Valproic Acid] 500 mg PO BID 09/10/16 Ascorbic Acid [Vitamin C] 500 mg PO DAILY 12/27/17 Aspirin [Aspirin EC] 81 mg PO DAILY 12/27/17 Cholecalciferol (Vitamin D3) [Vitamin D3] 1,000 unit PO DAILY 12/27/17 Multivitamins [Tab-A-Vit -] 1 tab PO DAILY 12/27/17 Physical Exam-Neuro Vital Signs: Vital Signs Temperature 98.2 F 12/28/17 08:00 Pulse Rate 62 12/28/17 08:00 Respiratory Rate 16 12/28/17 08:36 Blood Pressure 104/54 12/28/17 08:00 O2 Sat by Pulse Oximetry (%) 100 12/28/17 08:00 Labs: CBC, BMP 12/28/17 05:45 12/28/17 05:45 INR, PTT INR 0.93 (0.82-1.09) D 12/27/17 12:10 - Neuro Exam Level Of Consciousness: Yes: Sedated (Winces to pain and moves both arms equally ) Eyes: Yes: PERRL (+ Dolls eye movements) Cranial Nerves II-XII Intact: Yes (+ bilat corneal reflexes+nasal tickle reflex) DTR's: 0 Left Achilles, 0 Right Achilles, 1+ Left Bicep, 1+ Right Bicep, 1+ Left Tricep, 1+ Right Tricep, 1+ Left Brachioradialis, 1+ Right Brachioradialis Babinski: Present (bilat+) Response to pain prick: Normal (moves all 4 ext. to deep pain with 1/5 strength) Gait: Deferred (untestable) Assessment/Plan Sz d/o, admitted with pancreatitis/septic shock. Pancreatitis is associated with Valproic Acid?? etiology, please do not use Valproic Acid. He does not appear to have seizures now. Suggest: Cont Keppra 750mg i/v bid EEG d/w house staff. Will follow. Thank you, Juan J Clifton MD
[2017-12-28] MEDS: levETIRAcetam 500 MG/5 ML INJECTION VIAL IVPB SCH ×2 (10:47→23:04)
--- NOTE | 2017-12-28 12:05 | PN ---
Teaching Attending Note Name of Resident: Armond Harvey ATTENDING PHYSICIAN STATEMENT I saw and evaluated the patient. I reviewed the resident's note and discussed the case with the resident. I agree with the resident's findings and plan as documented. SUBJECTIVE: Patient seen and examined in the ICU. Intubated and sedated. Remains on NE 5 meq and Dopamine 5 mcq for hemodynamic support. AC mode of vent, 40% FiO2. Intake & Output 12/25/17 12/26/17 12/27/17 12/28/17 23:59 23:59 23:59 23:59 Intake Total 7240 Output Total 120 Balance 7120 Weight 176 lb 3.52 oz 179 lb 12.8 oz Last Vital Signs Temp Pulse Resp BP Pulse Ox 98.2 F 65 16 104/54 99 12/28/17 08:00 12/28/17 11:39 12/28/17 11:39 12/28/17 08:00 12/28/17 11:39 Active Medications Chlorhexidine Gluconate (Hibiclens For Decolonization -) 1 applic TP HS [facility] Last Admin: 12/27/17 21:23 Dose: 1 applic Heparin Sodium (Porcine) (Heparin -) 5,000 unit SQ TID [facility] Last Admin: 12/28/17 06:27 Dose: 5,000 unit Dopamine HCl/Dextrose (Dopamine 400 Mg/D5w -) 400,000 mcg in 250 mls @ 28.917 mls/hr IVPB TITR [facility]; 10 MCG/KG/MIN PRN Reason: Protocol Last Titration: 12/28/17 00:19 Dose: 5 mcg/kg/min, 14.458 mls/hr Piperacillin Sod/Tazobactam (Sod 3.375 gm/ Dextrose) 50 mls @ 100 mls/hr IVPB Q8H-IV [facility] Last Admin: 12/28/17 10:55 Dose: Not Given Norepinephrine Bitartrate 4, (000 mcg/ Dextrose) 500 mls @ 37.5 mls/hr IV TITR [facility]; 5 MCG/MIN PRN Reason: Protocol Last Admin: 12/28/17 00:18 Dose: 5 mcg/min, 37.5 mls/hr Lactated Ringer's (Lactated Ringers Solution) 1,000 ml in 1,000 mls @ 150 mls/ hr IV ASDIR [facility] Last Admin: 12/28/17 08:58 Dose: 150 mls/hr Levetiracetam (Keppra Injection -) 750 mg IVPB BID [facility] Last Admin: 12/28/17 10:47 Dose: 750 mg Lorazepam (Ativan Injection -) 2 mg IVPUSH DAILY PRN PRN Reason: AGITATION Mupirocin (Bactroban Ointment (For Decolonization) -) 1 applic NS BID [facility] Stop: 01/01/18 21:59 Last Admin: 12/27/17 21:23 Dose: 1 applic Constitutional: Yes: Intubated and sedated Eyes: Yes: Conjunctiva Clear, EOM Intact HENT: Yes: Atraumatic, Normocephalic Neck: Yes: Supple, Trachea Midline Cardiovascular: Yes: Regular Rate and Rhythm Respiratory: Yes: bilateral Rhonchi, mechanically ventilated Gastrointestinal: Yes: Normal Bowel Sounds, Soft. No: Tenderness Edema: No Neurological: Yes: Sedated Labs: Laboratory Results - last 24 hr 12/27/17 12/27/17 12/27/17 11:35 12:10 12:10 WBC 2.6 L D RBC 3.06 L Hgb 9.9 L Hct 28.2 L MCV 91.9 MCH 32.3 MCHC 35.2 RDW 14.3 Plt Count 113 L D MPV 8.8 Neutrophils % 62.3 Lymphocytes % 25.7 Monocytes % 10.3 H Eosinophils % 1.5 Basophils % 0.2 PT with INR INR PTT (Actin FS) Anticoagulation Therapy Puncture Site ABG pH ABG pCO2 at Pt Temp ABG pO2 at Pt Temp ABG HCO3 ABG O2 Sat (Measured) ABG O2 Content ABG Base Excess Adalberto Test VBG pH POC VBG pCO2 POC VBG pO2 Mixed VBG HCO3 O2 Delivery Device Oxygen Flow Rate Vent Mode Vent Rate Mechanical Rate PEEP Pressure Support Vent Sodium Potassium Chloride Carbon Dioxide Anion Gap BUN Creatinine Creat Clearance w eGFR POC Glucometer 92.33996 Random Glucose Lactic Acid Calcium Phosphorus Magnesium Total Bilirubin AST ALT Alkaline Phosphatase Troponin I Total Protein Albumin Lipase TSH Free T4 Urine Color Urine Appearance Urine pH Ur Specific [place] Urine Protein Urine Glucose (UA) Urine Ketones Urine Blood Urine Nitrite Urine Bilirubin Urine Urobilinogen Ur Leukocyte Esterase Urine WBC (Auto) Urine RBC (Auto) Hyaline Casts Valproic Acid 21.273 L 12/27/17 12/27/17 12/27/17 12:10 12:10 12:10 WBC RBC Hgb Hct MCV MCH MCHC RDW Plt Count MPV Neutrophils % Lymphocytes % Monocytes % Eosinophils % Basophils % PT with INR 10.50 INR 0.93 D PTT (Actin FS) 36.1 H Anticoagulation Therapy Puncture Site ABG pH ABG pCO2 at Pt Temp ABG pO2 at Pt Temp ABG HCO3 ABG O2 Sat (Measured) ABG O2 Content ABG Base Excess Adalberto Test VBG pH 7.31 L POC VBG pCO2 48.4 POC VBG pO2 71.2 H Mixed VBG HCO3 23.8 O2 Delivery Device Oxygen Flow Rate Vent Mode Vent Rate Mechanical Rate PEEP Pressure Support Vent Sodium 147 H Potassium 5.0 Chloride 116 H D Carbon Dioxide 24 Anion Gap 7 L BUN 58 H D Creatinine 1.1 Creat Clearance w eGFR > 60 POC Glucometer Random Glucose 82 Lactic Acid Calcium 8.5 Phosphorus Magnesium Total Bilirubin 0.3 AST 27 D ALT 38 D Alkaline Phosphatase 136 H D Troponin I Total Protein 6.2 L Albumin 2.7 L Lipase TSH Free T4 Urine Color Urine Appearance Urine pH Ur Specific [place] Urine Protein Urine Glucose (UA) Urine Ketones Urine Blood Urine Nitrite Urine Bilirubin Urine Urobilinogen Ur Leukocyte Esterase Urine WBC (Auto) Urine RBC (Auto) Hyaline Casts Valproic Acid 12/27/17 12/27/17 12/27/17 12:10 12:10 15:50 WBC RBC Hgb Hct MCV MCH MCHC RDW Plt Count MPV Neutrophils % Lymphocytes % Monocytes % Eosinophils % Basophils % PT with INR INR PTT (Actin FS) Anticoagulation Therapy Puncture Site ABG pH ABG pCO2 at Pt Temp ABG pO2 at Pt Temp ABG HCO3 ABG O2 Sat (Measured) ABG O2 Content ABG Base Excess Adalberto Test VBG pH POC VBG pCO2 POC VBG pO2 Mixed VBG HCO3 O2 Delivery Device Oxygen Flow Rate Vent Mode Vent Rate Mechanical Rate PEEP Pressure Support Vent Sodium Potassium Chloride Carbon Dioxide Anion Gap BUN Creatinine Creat Clearance w eGFR POC Glucometer Random Glucose Lactic Acid 0.8 Calcium Phosphorus Magnesium Total Bilirubin AST ALT Alkaline Phosphatase Troponin I < 0.02 Total Protein Albumin Lipase TSH 0.03 L Free T4 Urine Color Urine Appearance Urine pH Ur Specific [place] Urine Protein Urine Glucose (UA) Urine Ketones Urine Blood Urine Nitrite Urine Bilirubin Urine Urobilinogen Ur Leukocyte Esterase Urine WBC (Auto) Urine RBC (Auto) Hyaline Casts Valproic Acid 03/12/27/17 12/27/17 19:15 22:26 22:26 WBC RBC Hgb Hct MCV MCH MCHC RDW Plt Count MPV Neutrophils % Lymphocytes % Monocytes % Eosinophils % Basophils % PT with INR INR PTT (Actin FS) Anticoagulation Therapy Puncture Site Right radial ABG pH 7.31 L ABG pCO2 at Pt Temp 33.7 L ABG pO2 at Pt Temp 141.0 H ABG HCO3 16.3 L ABG O2 Sat (Measured) 99.6 H* ABG O2 Content 12.0 L ABG Base Excess -8.8 L Adalberto Test Positive VBG pH POC VBG pCO2 POC VBG pO2 Mixed VBG HCO3 O2 Delivery Device Vent esprit Oxygen Flow Rate 50 Vent Mode Vent Rate 16 Mechanical Rate A/c PEEP 5.0 Pressure Support Vent 450 Sodium Potassium Chloride Carbon Dioxide Anion Gap BUN Creatinine Creat Clearance w eGFR POC Glucometer Random Glucose Lactic Acid 0.7 Calcium Phosphorus Magnesium Total Bilirubin AST ALT Alkaline Phosphatase Troponin I Total Protein Albumin Lipase TSH Free T4 1.55 H Urine Color Urine Appearance Urine pH Ur Specific [place] Urine Protein Urine Glucose (UA) Urine Ketones Urine Blood Urine Nitrite Urine Bilirubin Urine Urobilinogen Ur Leukocyte Esterase Urine WBC (Auto) Urine RBC (Auto) Hyaline Casts Valproic Acid 12/27/17 12/27/17 12/27/17 22:26 22:26 22:29 WBC RBC Hgb Hct MCV MCH MCHC RDW Plt Count MPV Neutrophils % Lymphocytes % Monocytes % Eosinophils % Basophils % PT with INR INR PTT (Actin FS) Anticoagulation Therapy Puncture Site ABG pH ABG pCO2 at Pt Temp ABG pO2 at Pt Temp ABG HCO3 ABG O2 Sat (Measured) ABG O2 Content ABG Base Excess Adalberto Test VBG pH POC VBG pCO2 POC VBG pO2 Mixed VBG HCO3 O2 Delivery Device Oxygen Flow Rate Vent Mode Vent Rate Mechanical Rate PEEP Pressure Support Vent Sodium 151 H Potassium 4.6 Chloride 123 H Carbon Dioxide 19 L D Anion Gap 9 BUN 45 H D Creatinine 1.2 Creat Clearance w eGFR 59.02 POC Glucometer Random Glucose 78 Lactic Acid Calcium 6.9 L* Phosphorus Magnesium Total Bilirubin 0.4 D AST 24 ALT 30 D Alkaline Phosphatase 115 Troponin I Total Protein 5.0 L Albumin 2.1 L D Lipase 117 TSH Free T4 Urine Color Ltyellow Urine Appearance Slcloudy Urine pH 6.0 Ur Specific [place] 1.013 Urine Protein 1+ H Urine Glucose (UA) Negative Urine Ketones Trace H Urine Blood 1+ H Urine Nitrite Positive Urine Bilirubin Negative Urine Urobilinogen Negative Ur Leukocyte Esterase 3+ H Urine WBC (Auto) 74 Urine RBC (Auto) 1 Hyaline Casts 1 Valproic Acid 12/28/17 12/28/17 12/28/17 05:45 05:45 08:36 WBC 8.0 D RBC 2.82 L Hgb 9.1 L Hct 26.4 L MCV 93.9 MCH 32.2 MCHC 34.3 RDW 14.9 Plt Count 133 L MPV 8.9 Neutrophils % No Result Required. Lymphocytes % No Result Required. Monocytes % Eosinophils % Basophils % PT with INR INR PTT (Actin FS) Anticoagulation Therapy No Result Required. Puncture Site Left radial ABG pH 7.39 ABG pCO2 at Pt Temp 29.3 L ABG pO2 at Pt Temp 160.0 H* ABG HCO3 17.4 L ABG O2 Sat (Measured) 99.9 H* ABG O2 Content 12.3 L ABG Base Excess -6.2 L Adalberto Test Positive VBG pH POC VBG pCO2 POC VBG pO2 Mixed VBG HCO3 O2 Delivery Device Vent Oxygen Flow Rate 40% Vent Mode A/c Vent Rate 16 Mechanical Rate Yes PEEP 5.0 Pressure Support Vent 450 Sodium 149 H Potassium 4.8 Chloride 125 H Carbon Dioxide 19 L Anion Gap 5 L BUN 40 H Creatinine 1.3 Creat Clearance w eGFR 53.82 POC Glucometer Random Glucose 82 Lactic Acid Calcium 7.4 L Phosphorus 2.5 Magnesium 1.6 L Total Bilirubin 0.3 D AST 22 ALT 30 Alkaline Phosphatase 112 Troponin I Total Protein 4.8 L Albumin 2.0 L Lipase TSH Free T4 Urine Color Urine Appearance Urine pH Ur Specific [place] Urine Protein Urine Glucose (UA) Urine Ketones Urine Blood Urine Nitrite Urine Bilirubin Urine Urobilinogen Ur Leukocyte Esterase Urine WBC (Auto) Urine RBC (Auto) Hyaline Casts Valproic Acid Problem List - Problems (1) Seizure Code(s): R56.9 - UNSPECIFIED CONVULSIONS (2) Hypovolemic shock Code(s): R57.1 - HYPOVOLEMIC SHOCK (3) BPH (benign prostatic hyperplasia) Code(s): N40.0 - BENIGN PROSTATIC HYPERPLASIA WITHOUT LOWER URINRY TRACT SYMP (4) Hypothyroid Code(s): E03.9 - HYPOTHYROIDISM, UNSPECIFIED (5) Dementia Code(s): F03.90 - UNSPECIFIED DEMENTIA WITHOUT BEHAVIORAL DISTURBANCE Assessment/Plan Seizure Episode Seizure Disorder Hypovolemic Shock r/o Sepsis, r/o UTI Pancytopenia Hypothyroidism BPH Dementia - IVF resuscitation - pressor support to maintain MAP >65 - ABX coverage - Follow cultures - Monitor CBC - O2 to keep SPo2 >90% - Aspiration precautions - DVT prophylaxis - ICU monitoring Dr Parisi Critical care time spent in reviewing chart, evaluating patient and formulating plan - 36 minutes.
[2017-12-28 13:47] LABS: PLATELET ESTIMATE SLT DECREASE
[2017-12-28] MEDS: MUPIROCIN 2% TOPICAL OINTMENT FOR DECOLONIZATION NS SCH ×2 (13:52→23:03)
[2017-12-28] MEDS: DOPAMINE 400 MG/D5W - 400,000 MCG/250 ML INFUS.BAG IVPB SCH (15:59)
[2017-12-28] MEDS: CHLORHEXIDINE GLUCONATE 0.12% 15ML CUP MM SCH ×2 (16:03→23:04)
[2017-12-28] MEDS: CHLORHEXIDINE GLUCONATE 4% CLEANSER FOR DECOLONIZATION TP SCH (23:04)
[2017-12-29] MEDS: PIPERACILLIN/TAZOB 3.375 GM 3.375 GM in DEXTROSE 5%-WATER - 50 ML IVPB SCH ×3 (01:44→17:24)
[2017-12-29] MEDS ORDERED: DOPAMINE 400 MG/D5W - 400,000 MCG/250 ML INFUS.BAG IVPB ONE (05:30)
[2017-12-29] MEDS ORDERED: NOREPINEPHRINE BITARTRATE 4 MG/4 ML ML IV ONE (05:45)
[2017-12-29] MEDS: NOREPINEPHRINE BITARTRATE 4,000 MCG in DEXTROSE 5%-WATER - 496 ML IV SCH ×2 (05:54)
[2017-12-29] MEDS: HEPARIN NA (PORCINE) 5,000 UNITS/ML 1ML VIAL SQ SCH ×2 (05:55→19:31)
[2017-12-29 06:36] LABS: HEMATOCRIT 26.5 % (35.4-49); HEMOGLOBIN 9.6 GM/dL (11.7-16.9); MCH 33.1 pg (25.7-33.7); MCHC 36.1 g/dl (32.0-35.9); MEAN CELL VOLUME 91.8 fl (80-96); MEAN PLT VOLUME 8.4 fl (7.5-11.1); PLATELET COUNT 110 K/MM3 (134-434); RBC 2.89 M/mm3 (4.00-5.60); RDW 14.4 % (11.9-15.9); WHITE BLOOD COUNT 4.5 K/mm3 (4.0-10.0)
[2017-12-29 06:58] LABS: ALBUMIN 1.9 g/dl (3.4-5.0); ANION GAP 4 (8-16); BLOOD UREA NITROGEN 29 mg/dL (7-18); CALCIUM 7.7 mg/dL (8.5-10.1); CHLORIDE 120 mmol/L (98-107); CO2 22 mmol/L (21-32); GLUCOSE,RANDOM 97 mg/dL (74-106); MAGNESIUM 1.6 mg/dL (1.8-2.4); POTASSIUM 3.9 mmol/L (3.5-5.1); SODIUM 146 mmol/L (136-145)
[2017-12-29 07:03] LABS: ALK PHOS 126 U/L (45-117); BILIRUBIN,TOTAL 0.5 mg/dL (0.2-1.0); CREATININE 1.4 mg/dL (0.7-1.3); SGOT/AST 23 U/L (15-37); SGPT/ALT 30 U/L (12-78); TOT PROT 4.9 g/dl (6.4-8.2); TRIGLYCERIDES 143 mg/dL (35-160)
--- NOTE | 2017-12-29 07:27 | PN ---
Progress Note, Physician Chief Complaint: ID Intubated Hypothermia noted Dopamine Levo off - Current Medication List Current Medications: Active Medications Chlorhexidine Gluconate (Hibiclens For Decolonization -) 1 applic TP HS [facility] Last Admin: 12/28/17 23:04 Dose: 1 applic Chlorhexidine Gluconate (Peridex -) 15 ml MM BID [facility] Last Admin: 12/28/17 23:04 Dose: 15 ml Heparin Sodium (Porcine) (Heparin -) 5,000 unit SQ TID [facility] Last Admin: 12/29/17 05:55 Dose: 5,000 unit Dopamine HCl/Dextrose (Dopamine 400 Mg/D5w -) 400,000 mcg in 250 mls @ 28.917 mls/hr IVPB TITR [facility]; 10 MCG/KG/MIN PRN Reason: Protocol Last Titration: 12/29/17 01:45 Dose: 10 mcg/kg/min, 28.917 mls/hr Piperacillin Sod/Tazobactam (Sod 3.375 gm/ Dextrose) 50 mls @ 100 mls/hr IVPB Q8H-IV [facility] Last Admin: 12/29/17 01:44 Dose: 100 mls/hr Norepinephrine Bitartrate 4, (000 mcg/ Dextrose) 500 mls @ 37.5 mls/hr IV TITR [facility]; 5 MCG/MIN PRN Reason: Protocol Last Admin: 12/29/17 05:54 Dose: 2 mcg/min, 15 mls/hr Lactated Ringer's (Lactated Ringers Solution) 1,000 ml in 1,000 mls @ 150 mls/ hr IV ASDIR [facility] Last Admin: 12/28/17 16:01 Dose: 150 mls/hr Levetiracetam (Keppra Injection -) 750 mg IVPB BID [facility] Last Admin: 12/28/17 23:04 Dose: 750 mg Lorazepam (Ativan Injection -) 2 mg IVPUSH DAILY PRN PRN Reason: AGITATION Mupirocin (Bactroban Ointment (For Decolonization) -) 1 applic NS BID [facility] Stop: 01/01/18 21:59 Last Admin: 12/28/17 23:03 Dose: 1 applic Pantoprazole Sodium (Protonix Iv) 40 mg IVPUSH DAILY [facility] - Objective Vital Signs: Vital Signs Temperature 96.1 F L 12/29/17 06:00 Pulse Rate 36 L 12/29/17 06:00 Respiratory Rate 17 12/29/17 06:28 Blood Pressure 127/71 12/29/17 06:00 O2 Sat by Pulse Oximetry (%) 100 12/28/17 21:00 Constitutional: Yes: Other (ON vent) Cardiovascular: Yes: S1, S2 Respiratory: Yes: WNL, Regular, CTA Bilaterally Gastrointestinal: Yes: WNL, Normal Bowel Sounds, Soft. No: Tenderness Edema: No Labs: CBC, BMP 12/29/17 05:50 INR, PTT INR 0.93 (0.82-1.09) D 12/27/17 12:10 Assessment/Plan Microbiology 12/27/17 12:10 Blood - Peripheral Venous Blood Culture - Preliminary NO GROWTH OBTAINED AFTER 24 HOURS, INCUBATION TO CONTINUE FOR 4 DAYS. 12/27/17 12:10 Blood - Peripheral Venous Blood Culture - Preliminary NO GROWTH OBTAINED AFTER 24 HOURS, INCUBATION TO CONTINUE FOR 4 DAYS. Laboratory Tests 12/27/17 12/27/17 12/28/17 12:10 22:29 05:45 WBC Hgb Plt Count INR 0.93 D Oxygen Flow Rate BUN 40 H Creatinine Creat Clearance w eGFR 53.82 Urine Urobilinogen Negative Urine RBC (Auto) 1 12/28/17 12/29/17 12/29/17 08:36 05:50 05:50 WBC 4.5 D Hgb 9.6 L Plt Count 110 L INR Oxygen Flow Rate 40% BUN Pending Creatinine Pending Creat Clearance w eGFR Pending Urine Urobilinogen Urine RBC (Auto) Assessment Seizure disorder Possible sepsis syndrome hypothermia pancytopenia UTI UTI Respiratory failure Plan On Zosyn await urine culture
[2017-12-29] MEDS ORDERED: PT OWN MED DRAWER 7, Y5N ONE ×4 (09:41→21:22)
[2017-12-29] MEDS: levETIRAcetam 500 MG/5 ML INJECTION VIAL IVPB SCH ×2 (10:10→21:50)
[2017-12-29] MEDS: MUPIROCIN 2% TOPICAL OINTMENT FOR DECOLONIZATION NS SCH ×2 (10:10→21:50)
[2017-12-29] MEDS: CHLORHEXIDINE GLUCONATE 0.12% 15ML CUP MM SCH ×2 (10:16→21:50)
[2017-12-29] MEDS: PANTOPRAZOLE SODIUM 40 MG VIAL IVPUSH SCH (10:16)
[2017-12-29] MEDS: LACTATED RINGERS SOLUTION 1,000 ML/1,000 ML INFUS.BAG IV SCH (10:17)
--- NOTE | 2017-12-29 10:24 | PN ---
Progress Note (short form) - Note Progress Note: PULMONARY/CCM Pt seen and examined in the ICU. Remains intubated, sedated. Hypothermic, bradycardic overnight. Off levophed but on dopamine gtt. Bedside monitor showing ?AV block in lead II but not captured on 12 lead EKG. Last Vital Signs Temp Pulse Resp BP Pulse Ox 95.3 F L 45 L 16 141/79 100 12/29/17 08:57 12/29/17 08:57 12/29/17 09:00 12/29/17 08:57 12/29/17 09:00 Intake & Output 12/26/17 12/27/17 12/28/17 12/29/17 23:59 23:59 23:59 23:59 Intake Total 7240 3427 1560 Output Total 120 1000 500 Balance 7120 2427 1060 Weight 79.932 kg 81.556 kg 82.299 kg Gen: intubated, sedated Heart: RRR Lung: decreased breath sounds at the bases Abd: soft, nontender Ext: + edema CBC, BMP 12/29/17 05:50 12/29/17 05:50 Active Medications Chlorhexidine Gluconate (Hibiclens For Decolonization -) 1 applic TP HS [facility] Last Admin: 12/28/17 23:04 Dose: 1 applic Chlorhexidine Gluconate (Peridex -) 15 ml MM BID [facility] Last Admin: 12/29/17 10:16 Dose: 15 ml Heparin Sodium (Porcine) (Heparin -) 5,000 unit SQ TID [facility] Last Admin: 12/29/17 05:55 Dose: 5,000 unit Dopamine HCl/Dextrose (Dopamine 400 Mg/D5w -) 400,000 mcg in 250 mls @ 28.917 mls/hr IVPB TITR [facility]; 10 MCG/KG/MIN PRN Reason: Protocol Last Titration: 12/29/17 08:31 Dose: 14 mcg/kg/min, 40.483 mls/hr Piperacillin Sod/Tazobactam (Sod 3.375 gm/ Dextrose) 50 mls @ 100 mls/hr IVPB Q8H-IV [facility] Last Admin: 12/29/17 10:17 Dose: 100 mls/hr Norepinephrine Bitartrate 4, (000 mcg/ Dextrose) 500 mls @ 37.5 mls/hr IV TITR [facility]; 5 MCG/MIN PRN Reason: Protocol Last Titration: 12/29/17 08:31 Dose: 0 mcg/min, 0 mls/hr Lactated Ringer's (Lactated Ringers Solution) 1,000 ml in 1,000 mls @ 150 mls/ hr IV ASDIR [facility] Last Admin: 12/29/17 10:17 Dose: Not Given Levetiracetam (Keppra Injection -) 750 mg IVPB BID [facility] Last Admin: 12/29/17 10:10 Dose: 750 mg Lorazepam (Ativan Injection -) 2 mg IVPUSH DAILY PRN PRN Reason: AGITATION Mupirocin (Bactroban Ointment (For Decolonization) -) 1 applic NS BID [facility] Stop: 01/01/18 21:59 Last Admin: 12/29/17 10:10 Dose: 1 applic Pantoprazole Sodium (Protonix Iv) 40 mg IVPUSH DAILY [facility] Last Admin: 12/29/17 10:16 Dose: 40 mg A/P Seizure Episode Seizure Disorder Hypovolemic/Septic Shock UTI Pancytopenia Hypothyroidism BPH Dementia Bradycardia - monitor EKG - will start empiric steroids - f/u cortisol level - pressor support to maintain MAP >65 - d/c IVF - empiric antibiotics - f/u cultures - monitor CBC - O2 to keep SPo2 >90% - not a candidate for weaning at this time given bradycardia/hemodynamic instability - enteral feeds - DVT/GI prophylaxis - ICU monitoring critical care time spent in reviewing chart, evaluating patient and formulating plan 35 min Problem List - Problems (1) Seizure Code(s): R56.9 - UNSPECIFIED CONVULSIONS (2) Hypovolemic shock Code(s): R57.1 - HYPOVOLEMIC SHOCK (3) BPH (benign prostatic hyperplasia) Code(s): N40.0 - BENIGN PROSTATIC HYPERPLASIA WITHOUT LOWER URINRY TRACT SYMP (4) Hypothyroid Code(s): E03.9 - HYPOTHYROIDISM, UNSPECIFIED (5) Dementia Code(s): F03.90 - UNSPECIFIED DEMENTIA WITHOUT BEHAVIORAL DISTURBANCE
--- NOTE | 2017-12-29 10:58 | PN ---
Progress Note, Physician History of Present Illness: Events noted remains intubated/ sedated bradycardic last night on dopamine drip started on steroids cultures -ve so cinthia all f/u noted - Current Medication List Current Medications: Active Medications Chlorhexidine Gluconate (Hibiclens For Decolonization -) 1 applic TP HS [facility] Last Admin: 12/28/17 23:04 Dose: 1 applic Chlorhexidine Gluconate (Peridex -) 15 ml MM BID [facility] Last Admin: 12/29/17 10:16 Dose: 15 ml Heparin Sodium (Porcine) (Heparin -) 5,000 unit SQ TID [facility] Last Admin: 12/29/17 05:55 Dose: 5,000 unit Hydrocortisone Sodium Succinate (Solu-Cortef -) 100 mg IVPUSH Q8H-IV [facility] Dopamine HCl/Dextrose (Dopamine 400 Mg/D5w -) 400,000 mcg in 250 mls @ 28.917 mls/hr IVPB TITR [facility]; 10 MCG/KG/MIN PRN Reason: Protocol Last Titration: 12/29/17 08:31 Dose: 14 mcg/kg/min, 40.483 mls/hr Piperacillin Sod/Tazobactam (Sod 3.375 gm/ Dextrose) 50 mls @ 100 mls/hr IVPB Q8H-IV [facility] Last Admin: 12/29/17 10:17 Dose: 100 mls/hr Norepinephrine Bitartrate 4, (000 mcg/ Dextrose) 500 mls @ 37.5 mls/hr IV TITR [facility]; 5 MCG/MIN PRN Reason: Protocol Last Titration: 12/29/17 08:31 Dose: 0 mcg/min, 0 mls/hr Lactated Ringer's (Lactated Ringers Solution) 1,000 ml in 1,000 mls @ 150 mls/ hr IV [facility] Last Admin: 12/29/17 10:17 Dose: Not Given Levetiracetam (Keppra Injection -) 750 mg IVPB BID [facility] Last Admin: 12/29/17 10:10 Dose: 750 mg Lorazepam (Ativan Injection -) 2 mg IVPUSH DAILY PRN PRN Reason: AGITATION Mupirocin (Bactroban Ointment (For Decolonization) -) 1 applic NS BID [facility] Stop: 01/01/18 21:59 Last Admin: 03/31/18 10:10 Dose: 1 applic Pantoprazole Sodium (Protonix Iv) 40 mg IVPUSH DAILY [facility] Last Admin: 12/29/17 10:16 Dose: 40 mg - Objective Vital Signs: Vital Signs Temperature 95.3 F L 12/29/17 08:57 Pulse Rate 45 L 12/29/17 08:57 Respiratory Rate 16 12/29/17 09:00 Blood Pressure 141/79 12/29/17 08:57 O2 Sat by Pulse Oximetry (%) 100 12/29/17 09:00 Constitutional: Yes: Other (sedated/ intubated) Cardiovascular: Yes: Bradycardia Respiratory: Yes: Diminished Gastrointestinal: Yes: Soft Edema: LLE: 1+, RLE: 1+ Labs: CBC, BMP 12/29/17 05:50 12/29/17 05:50 INR, PTT INR 0.93 (0.82-1.09) D 12/27/17 12:10 Problem List - Problems (1) Dementia Code(s): F03.90 - UNSPECIFIED DEMENTIA WITHOUT BEHAVIORAL DISTURBANCE (2) Hypothermia Code(s): T68.XXXA - HYPOTHERMIA, INITIAL ENCOUNTER Qualifiers: Encounter type: initial encounter Qualified Code(s): T68.XXXA - Hypothermia , initial encounter (3) Hypovolemic shock Code(s): R57.1 - HYPOVOLEMIC SHOCK (4) Pancreatitis Code(s): K85.90 - ACUTE PANCREATITIS WITHOUT NECROSIS OR INFECTION, UNSP (5) Paraphimosis Code(s): N47.2 - PARAPHIMOSIS (6) Seizure Code(s): R56.9 - UNSPECIFIED CONVULSIONS (7) Septic shock Code(s): A41.9 - SEPSIS, UNSPECIFIED ORGANISM; R65.21 - SEVERE SEPSIS WITH SEPTIC SHOCK (8) UTI (urinary tract infection) Code(s): N39.0 - URINARY TRACT INFECTION, SITE NOT SPECIFIED (9) Urethral stricture Code(s): N35.9 - URETHRAL STRICTURE, UNSPECIFIED Assessment/Plan Condition remains critical vent support abx agree with steroids Keppra gi consult noted/ appreciated await cardiology consult discussed with icu attending condition remains critical discussed with nursing staff also. will follow. cc time 25 min
[2017-12-29] MEDS: HYDROCORTISONE SOD SUCCINATE 100 MG/2 ML VIAL IVPUSH SCH ×2 (11:06→17:24)
--- NOTE | 2017-12-29 12:44 | CON.CARD ---
Consult Consult Specialty:: cardiology Referred by:: Dmitri Reason for Consultation:: Respiratory failure - History of Present Illness Chief Complaint: Seizure History of Present Illness: The patient is a 77-year-old man with dementia, hypertension, hypothyroidism, BPH, seizure disorder, now admitted with seizures and hypothermia. The patient is currently intubated on pressors in the ICU. Has significant pulmonary congestion. - History Source History Provided By: Medical Record Limitations to Obtaining History: Unresponsive - Past Medical History [facility] [employer] [facility]: Yes: Dementia, Seizure Renal/: Yes: BPH Endocrine: Yes: Hypothyroidism - Alcohol/Substance Use Hx Alcohol Use: No - Smoking History Smoking history: Unknown if ever smoked Have you smoked in the past 12 months: No Home Medications - Allergies Allergies/Adverse Reactions: Allergies Allergy/AdvReac Type Severity Reaction Status Date / Time No Known Allergies Allergy Verified 03/16/17 11:59 - Home Medications Home Medications: Ambulatory Orders Acetaminophen [Tylenol .Regular Strength -] 650 mg PO TID PRN 01/08/14 Melatonin 2 mg PO HS 01/08/14 Tamsulosin HCl [Flomax -] 0.4 mg PO HS 04/18/14 Levothyroxine [Synthroid -] 50 mcg PO DAILY 07/09/14 Amlodipine Besylate 5 mg PO DAILY 09/10/16 Benztropine Mesylate 1 mg PO BID 09/10/16 Polyethylene Glycol 3350 [Miralax (For Daily Use) -] 17 gm PO DAILY 09/10/16 Valproic Acid (As Sodium Salt) [Valproic Acid] 500 mg PO BID 09/10/16 Ascorbic Acid [Vitamin C] 500 mg PO DAILY 12/27/17 Aspirin [Aspirin EC] 81 mg PO DAILY 12/27/17 Cholecalciferol (Vitamin D3) [Vitamin D3] 1,000 unit PO DAILY 12/27/17 Multivitamins [Tab-A-Vit -] 1 tab PO DAILY 12/27/17 Review of Systems - Review of Systems Constitutional: reports: Other (Unresponsive) Eyes: reports: Other (Intubated and sedated) HENT: reports: Other (Unresponsive) Neck: reports: No Symptoms Cardiovascular: reports: No Symptoms Respiratory: reports: Other (Intubated) Neurological: reports: Seizure, Other (Unresponsive) Hematology/Lymphatic: reports: No Symptoms Psychiatric: reports: No Symptoms Vital Signs: Vital Signs Temperature 96.5 F L 12/29/17 12:00 Pulse Rate 51 L 12/29/17 12:00 Respiratory Rate 14 12/29/17 12:00 Blood Pressure 93/55 12/29/17 12:00 O2 Sat by Pulse Oximetry (%) 100 12/29/17 09:00 Constitutional: Yes: Well Nourished (Unresponsive) HENT: Yes: Atraumatic, Normocephalic (Intubated) Neck: Yes: Other (Intubated) Respiratory: Yes: Mechanically Ventilated Gastrointestinal: Yes: Normal Bowel Sounds, Soft Cardiovascular: Yes: Regular Rate and Rhythm, Bradycardia JVD: No Carotid Bruit: No PMI: Non-Displaced Heart Sounds: Yes: S1, S2 Musculoskeletal: Yes: Other (Unresponsive) Extremities: Yes: WNL Edema: LLE: Trace, RLE: Trace Peripheral Pulses: 1+ Left Carotid, 1+ Right Carotid, 1+ Left Femoral, 1+ Right Femoral, 1+ Left Popliteal, 1+ Right Popliteal, 1+ Left Doralis Pedis, 1+ Right Dorsalis Pedis Neurological: Yes: Unresponsive - Other Data Labs, Other Data: CBC, BMP 12/29/17 05:50 12/29/17 05:50 INR, PTT INR 0.93 (0.82-1.09) D 12/27/17 12:10 Troponin, BNP 12/29/17 05:50 Troponin I < 0.02 Troponin, BNP 12/29/17 05:50 Troponin I < 0.02 Assessment/Plan 77-year-old man with a history of seizure disorder, presenting after seizure. Found to be hypotensive, unresponsive, and pulmonary edema. There is no evidence of ischemia nor acute coronary syndrome. The patient is in sinus bradycardia. There are no acute ECG changes. Please diuresis with intravenous Lasix twice daily, as blood pressure allows. Continue pressure support as needed. Please arrange for an echocardiogram. No need for further cardiac workup at this point. We'll follow results.
[2017-12-29] MEDS ORDERED: HEPARIN NA (PORCINE) 5,000 UNITS/ML 1ML VIAL IVPUSH PRN ×2 (14:43)
[2017-12-29] MEDS ORDERED: BENZOIN/ALOE VERA/STORAX/TOLU 58 ML BOTTLE ONE (14:44)
[2017-12-29] MEDS ORDERED: HEPARIN NA (PORCINE) 5,000 UNITS/ML 1ML VIAL IVPUSH ONE (15:00)
[2017-12-29] MEDS: HEPARIN INFUSION - 25,000 UNITS/500 ML INFUS.BAG IVPB SCH (15:05)
[2017-12-29] MEDS: DOPAMINE 400 MG/D5W - 400,000 MCG/250 ML INFUS.BAG IVPB SCH (15:05)
--- NOTE | 2017-12-29 17:36 | EKG ---
Test Reason : Blood Pressure : / mmHG Vent. Rate : 095 BPM Atrial Rate : 083 BPM P-R Int : 000 ms QRS Dur : 082 ms QT Int : 358 ms P-R-T Axes : 000 011 133 degrees QTc Int : 449 ms ATRIAL FIBRILLATION NONSPECIFIC ST AND T WAVE ABNORMALITY ABNORMAL ECG WHEN COMPARED WITH ECG OF 29-DEC-2017 10:02, ATRIAL FIBRILLATION HAS REPLACED SINUS RHYTHM VENT. RATE HAS INCREASED BY 50 BPM NONSPECIFIC T WAVE ABNORMALITY, WORSE IN ANTEROLATERAL LEADS Confirmed by MD VIRIDIANA, BRIAN ([id number]) on 12/29/2017 5:36:39 PM Referred By: Confirmed By:BRIAN KEMP MD
--- NOTE | 2017-12-29 17:45 | EKG ---
Test Reason : Blood Pressure : / mmHG Vent. Rate : 057 BPM Atrial Rate : 057 BPM P-R Int : 198 ms QRS Dur : 086 ms QT Int : 414 ms P-R-T Axes : 063 013 058 degrees QTc Int : 402 ms SINUS BRADYCARDIA NONSPECIFIC T WAVE ABNORMALITY ABNORMAL ECG WHEN COMPARED WITH ECG OF 29-DEC-2017 00:32, T WAVE INVERSION NO LONGER EVIDENT IN ANTERIOR LEADS Confirmed by MD VIRIDIANA, BRIAN ([id number]) on 12/29/2017 5:45:16 PM Referred By: Moises HERRERA Confirmed By:BRIAN KEMP MD
--- NOTE | 2017-12-29 17:51 | EKG ---
Test Reason : Blood Pressure : / mmHG Vent. Rate : 055 BPM Atrial Rate : 055 BPM P-R Int : 194 ms QRS Dur : 082 ms QT Int : 428 ms P-R-T Axes : 058 010 065 degrees QTc Int : 409 ms POOR DATA QUALITY, INTERPRETATION MAY BE ADVERSELY AFFECTED SINUS BRADYCARDIA T WAVE ABNORMALITY, CONSIDER ANTERIOR ISCHEMIA ABNORMAL ECG Confirmed by MD VIRIDIANA, BRIAN ([id number]) on 12/29/2017 5:51:36 PM Referred By: Confirmed By:BRIAN KEMP MD
[2017-12-29] MEDS: CHLORHEXIDINE GLUCONATE 4% CLEANSER FOR DECOLONIZATION TP SCH (21:50)
--- NOTE | 2017-12-29 22:26 | PN ---
Progress Note, Physician History of Present Illness: Chart reviewed. Events noted. Remains sedated, on vent support and on dopamine. Moves extremities. Bradycardic. New AFIB - Current Medication List Current Medications: Active Medications Chlorhexidine Gluconate (Hibiclens For Decolonization -) 1 applic TP HS RANDAL Last Admin: 12/29/17 21:50 Dose: 1 applic Chlorhexidine Gluconate (Peridex -) 15 ml MM BID [facility]ANDAL Last Admin: 12/29/17 21:50 Dose: 15 ml Heparin Sodium (Porcine) (Heparin -) 5,000 unit IVPUSH PRN PRN PRN Reason: BOLUS Heparin Sodium (Porcine) (Heparin -) 1,000 unit IVPUSH PRN PRN PRN Reason: BOLUS Hydrocortisone Sodium Succinate (Solu-Cortef -) 100 mg IVPUSH Q8H-IV RANDAL Last Admin: 12/29/17 17:24 Dose: 100 mg Dopamine HCl/Dextrose (Dopamine 400 Mg/D5w -) 400,000 mcg in 250 mls @ 28.917 mls/hr IVPB TITR RANDAL; 10 MCG/KG/MIN PRN Reason: Protocol Last Admin: 12/29/17 15:05 Dose: 7 mcg/kg/min, 20.242 mls/hr Piperacillin Sod/Tazobactam (Sod 3.375 gm/ Dextrose) 50 mls @ 100 mls/hr IVPB Q8H-IV RANDAL Last Admin: 12/29/17 17:24 Dose: 100 mls/hr Norepinephrine Bitartrate 4, (000 mcg/ Dextrose) 500 mls @ 37.5 mls/hr IV TITR RANDAL; 5 MCG/MIN PRN Reason: Protocol Last Titration: 12/29/17 08:31 Dose: 0 mcg/min, 0 mls/hr Heparin Sodium/Dextrose (Heparin Infusion -) 25,000 units in 500 mls @ 20 mls/ hr IVPB TITR RANDAL; 1,000 UNITS/HR PRN Reason: Protocol Last Admin: 12/29/17 15:05 Dose: 1,000 units/hr, 20 mls/hr Levetiracetam (Keppra Injection -) 750 mg IVPB BID [facility]AL Last Admin: 12/29/17 21:50 Dose: 750 mg Lorazepam (Ativan Injection -) 2 mg IVPUSH DAILY PRN PRN Reason: AGITATION Mupirocin (Bactroban Ointment (For Decolonization) -) 1 applic NS BID RANDAL Stop: 01/01/18 21:59 Last Admin: 12/29/17 21:50 Dose: 1 applic Pantoprazole Sodium (Protonix Iv) 40 mg IVPUSH DAILY [facility] Last Admin: 12/29/17 10:16 Dose: 40 mg - Objective Vital Signs: Vital Signs Temperature 99 F 12/29/17 18:00 Pulse Rate 46 L 12/29/17 21:00 Respiratory Rate 16 12/29/17 21:00 Blood Pressure 92/52 12/29/17 18:00 O2 Sat by Pulse Oximetry (%) 99 12/29/17 21:00 Gastrointestinal: Yes: Soft, Abdomen, Obese, Hypoactive Bowel Sounds. No: Distention, Melena, Rectal Bleeding Labs: CBC, BMP 12/29/17 05:50 12/29/17 05:50 INR, PTT INR 0.93 (0.82-1.09) D 12/27/17 12:10 CBCD WBC 4.5 K/mm3 (4.0-10.0) D 12/29/17 05:50 RBC 2.89 M/mm3 (4.00-5.60) L 12/29/17 05:50 Hgb 9.6 GM/dL (11.7-16.9) L 12/29/17 05:50 Hct 26.5 % (35.4-49) L 12/29/17 05:50 MCV 91.8 fl (80-96) 12/29/17 05:50 MCHC 36.1 g/dl (32.0-35.9) H 12/29/17 05:50 RDW 14.4 % (11.9-15.9) 12/29/17 05:50 Plt Count 110 K/MM3 (134-434) L 12/29/17 05:50 MPV 8.4 fl (7.5-11.1) 12/29/17 05:50 CMP Sodium 146 mmol/L (136-145) H 12/29/17 05:50 Potassium 3.9 mmol/L (3.5-5.1) 12/29/17 05:50 Chloride 120 mmol/L (98-107) H 12/29/17 05:50 Carbon Dioxide 22 mmol/L (21-32) 12/29/17 05:50 Anion Gap 4 (8-16) L 12/29/17 05:50 BUN 29 mg/dL (7-18) H D 12/29/17 05:50 Creatinine 1.4 mg/dL (0.7-1.3) H 12/29/17 05:50 Creat Clearance w eGFR 49.41 (>60) 12/29/17 05:50 Calcium 7.7 mg/dL (8.5-10.1) L 12/29/17 05:50 Total Bilirubin 0.5 mg/dL (0.2-1.0) D 12/29/17 05:50 AST 23 U/L (15-37) 12/29/17 05:50 ALT 30 U/L (12-78) 12/29/17 05:50 Alkaline Phosphatase 126 U/L (45-117) H 12/29/17 05:50 Total Protein 4.9 g/dl (6.4-8.2) L 12/29/17 05:50 Albumin 1.9 g/dl (3.4-5.0) L 12/29/17 05:50 Abnormal Lab Results 12/29/17 12/29/17 05:50 05:50 RBC 2.89 L Hgb 9.6 L Hct 26.5 L MCHC 36.1 H Plt Count 110 L Sodium 146 H Chloride 120 H Anion Gap 4 L BUN 29 H D Creatinine 1.4 H Calcium 7.7 L Magnesium 1.6 L Alkaline Phosphatase 126 H Total Protein 4.9 L Albumin 1.9 L Problem List - Problems (1) Septic shock Code(s): A41.9 - SEPSIS, UNSPECIFIED ORGANISM; R65.21 - SEVERE SEPSIS WITH SEPTIC SHOCK (2) Pancreatitis Code(s): K85.90 - ACUTE PANCREATITIS WITHOUT NECROSIS OR INFECTION, UNSP (3) Hypovolemic shock Code(s): R57.1 - HYPOVOLEMIC SHOCK (4) Respiratory failure, acute Code(s): J96.00 - ACUTE RESPIRATORY FAILURE, UNSP W HYPOXIA OR HYPERCAPNIA Assessment/Plan management as per ICU and cardiology teams CMP, direct bili, Tg, IgG4, CMV, EBV pending Will follow closely
[2017-12-30] MEDS: HYDROCORTISONE SOD SUCCINATE 100 MG/2 ML VIAL IVPUSH SCH ×3 (01:28→17:43)
[2017-12-30] MEDS: PIPERACILLIN/TAZOB 3.375 GM 3.375 GM in DEXTROSE 5%-WATER - 50 ML IVPB SCH ×3 (01:28→17:43)
[2017-12-30] MEDS: NOREPINEPHRINE BITARTRATE 4,000 MCG in DEXTROSE 5%-WATER - 496 ML IV SCH (01:28)
[2017-12-30 06:09] LABS: BASO % 0.1 % (0-2.0); EOS % 0.1 % (0-4.5); HEMATOCRIT 27.1 % (35.4-49); HEMOGLOBIN 9.6 GM/dL (11.7-16.9); LYMPH % 16.4 % (8-40); MCH 32.3 pg (25.7-33.7); MCHC 35.4 g/dl (32.0-35.9); MEAN CELL VOLUME 91.2 fl (80-96); MEAN PLT VOLUME 7.9 fl (7.5-11.1); MONO % 4.3 % (3.8-10.2); NEUT % 79.1 % (42.8-82.8); PLATELET COUNT 124 K/MM3 (134-434); RBC 2.97 M/mm3 (4.00-5.60); RDW 14.3 % (11.9-15.9); WHITE BLOOD COUNT 3.1 K/mm3 (4.0-10.0)
[2017-12-30 07:08] LABS: ALK PHOS 124 U/L (45-117); ANION GAP 8 (8-16); BILIRUBIN,TOTAL 0.4 mg/dL (0.2-1.0); BLOOD UREA NITROGEN 26 mg/dL (7-18); CALCIUM 8.1 mg/dL (8.5-10.1); CHLORIDE 119 mmol/L (98-107); CO2 20 mmol/L (21-32); CREATININE 1.4 mg/dL (0.7-1.3); GLUCOSE,RANDOM 127 mg/dL (74-106); MAGNESIUM 1.8 mg/dL (1.8-2.4); PHOSPHOROUS 3.7 mg/dL (2.5-4.9); POTASSIUM 4.3 mmol/L (3.5-5.1); SGOT/AST 20 U/L (15-37); SGPT/ALT 28 U/L (12-78); SODIUM 147 mmol/L (136-145); TOT PROT 5.2 g/dl (6.4-8.2)
--- NOTE | 2017-12-30 09:21 | PN ---
Progress Note (short form) - Note Progress Note: intubated remains on dopamine Vital Signs Period Temp Pulse Resp BP Sys/[place] Pulse Ox Last 24 Hr 96.1 F-99 F 37-79 16-16 92-154/52-76 99-99 cor-rrr lungs decreased bs at bases abd soft,nt ext no edema +alva with hematuria CBC, BMP 12/30/17 05:35 12/30/17 05:35 Microbiology 12/27/17 12:10 Blood - Peripheral Venous Blood Culture - Preliminary NO GROWTH OBTAINED AFTER 48 HOURS, INCUBATION TO CONTINUE FOR 3 DAYS. 12/27/17 12:10 Blood - Peripheral Venous Blood Culture - Preliminary NO GROWTH OBTAINED AFTER 48 HOURS, INCUBATION TO CONTINUE FOR 3 DAYS. 12/27/17 22:31 Urine - Urine - Catheterized Urine Culture - Final NO GROWTH OBTAINED a/p sepsis- most likely due to uti, urine culture sent after antibiotics were given seizures-known seizure disorder urethral stricture- difficulty placing alva catheter respiratory failure-intubated for lethargy/airway protection in ed leukopenia- chronic, ?meds anemia- new continue zosyn as ordered-day #3 Problem List - Problems (1) Sepsis Code(s): A41.9 - SEPSIS, UNSPECIFIED ORGANISM (2) UTI (urinary tract infection) Code(s): N39.0 - URINARY TRACT INFECTION, SITE NOT SPECIFIED (3) Seizure Code(s): R56.9 - UNSPECIFIED CONVULSIONS (4) Anemia Code(s): D64.9 - ANEMIA, UNSPECIFIED (5) Respiratory failure, acute Code(s): J96.00 - ACUTE RESPIRATORY FAILURE, UNSP W HYPOXIA OR HYPERCAPNIA
--- NOTE | 2017-12-30 09:24 | PN ---
Progress Note (short form) - Note Progress Note: pt seen/ examined remains vent dependent arousable--RN reports bites tubes/ pulls started on heparin drip due to afib. Sinus fabrice on monitor. alva + some blood tinged urine. On dopamine drip. not on sedation. Vital Signs Temp 97.9 F 12/30/17 06:00 Pulse 66 12/30/17 06:00 Resp 16 12/30/17 07:41 BP 109/63 12/30/17 06:00 Pulse Ox 99 12/29/17 22:00 Intake & Output 12/29/17 12/29/17 12/30/17 11:59 23:59 11:59 Intake Total 1560 1270 400 Output Total 500 1000 700 Balance 1060 270 -300 Weight 181 lb 7 oz 181 lb Intake: IV 1560 970 280 DOPAMINE 400 MG/D5W - 400 210 420 140 ,000 mcg In 250 ml @ 10 MCG/KG/MIN 28.917 mls/hr IVPB TITR RANDAL Rx#: [id number] HEPARIN INFUSION - 25,000 100 140 units In 500 ml @ 1,000 UNITS/HR 20 mls/hr IVPB TITR RANDAL Rx#:[id number] LACTATED RINGERS SOLUTION 1050 450 1,000 ml In 1,000 ml @ 150 mls/hr IV ASDIR RANDAL Rx#:[id number] Levophed - 4,000 Mcg In 300 0 0 D5w - 496 ml @ 5 MCG/MIN 37.5 mls/hr IV TITR RANDAL Rx#:[id number] IVPB 300 120 Oral 0 0 Output: Urine 500 1000 700 Alva 500 1000 700 Other: Voiding Method Indwelling Catheter Indwelling Catheter Bowel Movement No Weight Measurement Method Built in [facility] Built in [facility] Active Medications Chlorhexidine Gluconate (Hibiclens For Decolonization -) 1 applic TP HS [facility] Last Admin: 12/29/17 21:50 Dose: 1 applic Chlorhexidine Gluconate (Peridex -) 15 ml MM BID RANDAL Last Admin: 12/29/17 21:50 Dose: 15 ml Heparin Sodium (Porcine) (Heparin -) 5,000 unit IVPUSH PRN PRN PRN Reason: BOLUS Heparin Sodium (Porcine) (Heparin -) 1,000 unit IVPUSH PRN PRN PRN Reason: BOLUS Hydrocortisone Sodium Succinate (Solu-Cortef -) 100 mg IVPUSH Q8H-IV RANDAL Last Admin: 12/30/17 01:28 Dose: 100 mg Dopamine HCl/Dextrose (Dopamine 400 Mg/D5w -) 400,000 mcg in 250 mls @ 28.917 mls/hr IVPB TITR RANDAL; 10 MCG/KG/MIN PRN Reason: Protocol Last Admin: 12/29/17 15:05 Dose: 7 mcg/kg/min, 20.242 mls/hr Piperacillin Sod/Tazobactam (Sod 3.375 gm/ Dextrose) 50 mls @ 100 mls/hr IVPB Q8H-IV RANDAL Last Admin: 12/30/17 01:28 Dose: 100 mls/hr Norepinephrine Bitartrate 4, (000 mcg/ Dextrose) 500 mls @ 37.5 mls/hr IV TITR RANDAL; 5 MCG/MIN PRN Reason: Protocol Last Admin: 12/30/17 01:28 Dose: Not Given Heparin Sodium/Dextrose (Heparin Infusion -) 25,000 units in 500 mls @ 20 mls/ hr IVPB TITR RANDAL; 1,000 UNITS/HR PRN Reason: Protocol Last Titration: 12/30/17 09:04 Dose: 0 units/hr, 0 mls/hr Levetiracetam (Keppra Injection -) 750 mg IVPB BID [facility] Last Admin: 12/29/17 21:50 Dose: 750 mg Lorazepam (Ativan Injection -) 2 mg IVPUSH DAILY PRN PRN Reason: AGITATION Mupirocin (Bactroban Ointment (For Decolonization) -) 1 applic NS BID [facility] Stop: 01/01/18 21:59 Last Admin: 12/29/17 21:50 Dose: 1 applic Pantoprazole Sodium (Protonix Iv) 40 mg IVPUSH DAILY [facility] Last Admin: 12/29/17 10:16 Dose: 40 mg CBC, BMP 12/30/17 05:35 12/30/17 05:35 Microbiology 12/27/17 12:10 Blood Culture - Preliminary Blood - Peripheral Venous NO GROWTH OBTAINED AFTER 48 HOURS, INCUBATION TO CONTINUE FOR 3 DAYS. 12/27/17 12:10 Blood Culture - Preliminary Blood - Peripheral Venous NO GROWTH OBTAINED AFTER 48 HOURS, INCUBATION TO CONTINUE FOR 3 DAYS. 12/27/17 22:31 Urine Culture - Final Urine - Urine - Catheterized NO GROWTH OBTAINED cxr -- bilateral pleural effusions Physical Exam. Constitutional: Yes: Other ( intubated) Cardiovascular: Yes: Bradycardia Respiratory: Yes: Diminished Gastrointestinal: Yes: Soft Edema: LLE: 1+, RLE: 1+ Labs: CBC, BMP 12/29/17 05:50 12/29/17 05:50 INR, PTT INR 0.93 (0.82-1.09) D 12/27/17 12:10 Problem List - Problems (1) Dementia Code(s): F03.90 - UNSPECIFIED DEMENTIA WITHOUT BEHAVIORAL DISTURBANCE (2) Hypothermia Code(s): T68.XXXA - HYPOTHERMIA, INITIAL ENCOUNTER Qualifiers: Encounter type: initial encounter Qualified Code(s): T68.XXXA - Hypothermia , initial encounter (3) Hypovolemic shock Code(s): R57.1 - HYPOVOLEMIC SHOCK (4) Pancreatitis Code(s): K85.90 - ACUTE PANCREATITIS WITHOUT NECROSIS OR INFECTION, UNSP (5) Paraphimosis Code(s): N47.2 - PARAPHIMOSIS (6) Seizure Code(s): R56.9 - UNSPECIFIED CONVULSIONS (7) Septic shock Code(s): A41.9 - SEPSIS, UNSPECIFIED ORGANISM; R65.21 - SEVERE SEPSIS WITH SEPTIC SHOCK (8) UTI (urinary tract infection) Code(s): N39.0 - URINARY TRACT INFECTION, SITE NOT SPECIFIED (9) Urethral stricture Code(s): N35.9 - URETHRAL STRICTURE, UNSPECIFIED Assessment/Plan Condition remains critical vent support abx per i/d steroids Keppra continue present care discussed with icu attending discussed with nursing staff also. gautam for safety. will follow. cc time 25 min Problem List - Problems (1) Dementia Code(s): F03.90 - UNSPECIFIED DEMENTIA WITHOUT BEHAVIORAL DISTURBANCE (2) Hypothermia Code(s): T68.XXXA - HYPOTHERMIA, INITIAL ENCOUNTER Qualifiers: Encounter type: initial encounter Qualified Code(s): T68.XXXA - Hypothermia , initial encounter (3) Hypovolemic shock Code(s): R57.1 - HYPOVOLEMIC SHOCK (4) Pancreatitis Code(s): K85.90 - ACUTE PANCREATITIS WITHOUT NECROSIS OR INFECTION, UNSP (5) Paraphimosis Code(s): N47.2 - PARAPHIMOSIS (6) Seizure Code(s): R56.9 - UNSPECIFIED CONVULSIONS (7) Septic shock Code(s): A41.9 - SEPSIS, UNSPECIFIED ORGANISM; R65.21 - SEVERE SEPSIS WITH SEPTIC SHOCK (8) UTI (urinary tract infection) Code(s): N39.0 - URINARY TRACT INFECTION, SITE NOT SPECIFIED (9) Urethral stricture Code(s): N35.9 - URETHRAL STRICTURE, UNSPECIFIED
[2017-12-30] MEDS: MUPIROCIN 2% TOPICAL OINTMENT FOR DECOLONIZATION NS SCH ×2 (10:04→21:39)
[2017-12-30] MEDS: levETIRAcetam 500 MG/5 ML INJECTION VIAL IVPB SCH ×2 (10:18→21:40)
--- NOTE | 2017-12-30 10:20 | PN ---
Progress Note (short form) - Note Progress Note: PULMONARY/CCM Pt seen and examined in the ICU. Remains intubated, more arousable today. Remains bradycardic on dopamine gtt. Telemetry did show episode of atrial fibrillation. Last Vital Signs Temp Pulse Resp BP Pulse Ox 97.9 F 66 16 109/63 99 12/30/17 06:00 12/30/17 06:00 12/30/17 07:41 12/30/17 06:00 12/29/17 22:00 Intake & Output 12/27/17 12/28/17 12/29/17 12/30/17 23:59 23:59 23:59 23:59 Intake Total 7240 3427 2830 400 Output Total 120 1000 1500 700 Balance 7120 2427 1330 -300 Weight 79.932 kg 81.556 kg 82.299 kg 82.1 kg Gen: intubated, more arousable Heart: RRR Lung: decreased breath sounds at the bases Abd: soft, nontender Ext: + edema CBC, BMP 12/30/17 05:35 12/30/17 05:35 Active Medications Chlorhexidine Gluconate (Hibiclens For Decolonization -) 1 applic TP HS [facility] Last Admin: 12/29/17 21:50 Dose: 1 applic Chlorhexidine Gluconate (Peridex -) 15 ml MM BID [facility]ANDAL Last Admin: 12/29/17 21:50 Dose: 15 ml Heparin Sodium (Porcine) (Heparin -) 5,000 unit IVPUSH PRN PRN PRN Reason: BOLUS Heparin Sodium (Porcine) (Heparin -) 1,000 unit IVPUSH PRN PRN PRN Reason: BOLUS Hydrocortisone Sodium Succinate (Solu-Cortef -) 100 mg IVPUSH Q8H-IV RANDAL Last Admin: 12/30/17 01:28 Dose: 100 mg Dopamine HCl/Dextrose (Dopamine 400 Mg/D5w -) 400,000 mcg in 250 mls @ 28.917 mls/hr IVPB TITR RANDAL; 10 MCG/KG/MIN PRN Reason: Protocol Last Admin: 12/29/17 15:05 Dose: 7 mcg/kg/min, 20.242 mls/hr Piperacillin Sod/Tazobactam (Sod 3.375 gm/ Dextrose) 50 mls @ 100 mls/hr IVPB Q8H-IV RANDAL Last Admin: 12/30/17 01:28 Dose: 100 mls/hr Norepinephrine Bitartrate 4, (000 mcg/ Dextrose) 500 mls @ 37.5 mls/hr IV TITR RANDAL; 5 MCG/MIN PRN Reason: Protocol Last Admin: 12/30/17 01:28 Dose: Not Given Heparin Sodium/Dextrose (Heparin Infusion -) 25,000 units in 500 mls @ 20 mls/ hr IVPB TITR RANDAL; 1,000 UNITS/HR PRN Reason: Protocol Last Titration: 12/30/17 09:04 Dose: 0 units/hr, 0 mls/hr Levetiracetam (Keppra Injection -) 750 mg IVPB BID [facility] Last Admin: 12/29/17 21:50 Dose: 750 mg Lorazepam (Ativan Injection -) 2 mg IVPUSH DAILY PRN PRN Reason: AGITATION Mupirocin (Bactroban Ointment (For Decolonization) -) 1 applic NS BID [facility] Stop: 01/01/18 21:59 Last Admin: 12/29/17 21:50 Dose: 1 applic Pantoprazole Sodium (Protonix Iv) 40 mg IVPUSH DAILY [facility] Last Admin: 12/29/17 10:16 Dose: 40 mg A/P Seizure Episode Seizure Disorder Hypovolemic/Septic Shock UTI Pancytopenia Hypothyroidism BPH Dementia Bradycardia Atrial fibrillation - continue dopamine gtt - add on cardiac enzymes to AM labs - anticoagulation - continue empiric steroids - f/u cortisol level - empiric antibiotics - f/u cultures - monitor CBC - O2 to keep SPo2 >90% - placed on CPAP/PS trial - anticipate extubation in next 1-2 days, baseline mental status poor and almost dependent in total care - enteral feeds - DVT/GI prophylaxis - ICU monitoring critical care time spent in reviewing chart, evaluating patient and formulating plan 35 min Problem List - Problems (1) Seizure Code(s): R56.9 - UNSPECIFIED CONVULSIONS (2) Hypovolemic shock Code(s): R57.1 - HYPOVOLEMIC SHOCK (3) BPH (benign prostatic hyperplasia) Code(s): N40.0 - BENIGN PROSTATIC HYPERPLASIA WITHOUT LOWER URINRY TRACT SYMP (4) Hypothyroid Code(s): E03.9 - HYPOTHYROIDISM, UNSPECIFIED (5) Dementia Code(s): F03.90 - UNSPECIFIED DEMENTIA WITHOUT BEHAVIORAL DISTURBANCE
[2017-12-30] MEDS: DOPAMINE 400 MG/D5W - 400,000 MCG/250 ML INFUS.BAG IVPB SCH ×3 (10:22→18:26)
[2017-12-30] MEDS: CHLORHEXIDINE GLUCONATE 0.12% 15ML CUP MM SCH ×2 (10:23→21:40)
[2017-12-30] MEDS: PANTOPRAZOLE SODIUM 40 MG VIAL IVPUSH SCH (10:24)
[2017-12-30] MEDS: FUROSEMIDE 40 MG/4 ML INJECTABLE VIAL IVPUSH SCH ×2 (13:30→17:43)
--- NOTE | 2017-12-30 16:18 | EKG ---
Test Reason : Blood Pressure : / mmHG Vent. Rate : 045 BPM Atrial Rate : 045 BPM P-R Int : 174 ms QRS Dur : 088 ms QT Int : 474 ms P-R-T Axes : 063 010 045 degrees QTc Int : 410 ms SINUS BRADYCARDIA NONSPECIFIC ST AND T WAVE ABNORMALITY ABNORMAL ECG WHEN COMPARED WITH ECG OF 29-DEC-2017 08:18, NO SIGNIFICANT CHANGE WAS FOUND Confirmed by MD VIRIDIANA, BRIAN ([id number]) on 12/30/2017 4:18:41 PM Referred By: Confirmed By:BRIAN KEMP MD
[2017-12-30] MEDS ORDERED: PT OWN MED DRAWER 7, Y5N ONE ×2 (17:22→21:14)
[2017-12-30] MEDS: HEPARIN INFUSION - 25,000 UNITS/500 ML INFUS.BAG IVPB SCH (17:43)
[2017-12-30] MEDS: CHLORHEXIDINE GLUCONATE 4% CLEANSER FOR DECOLONIZATION TP SCH (21:39)
[2017-12-31] MEDS: NOREPINEPHRINE BITARTRATE 4,000 MCG in DEXTROSE 5%-WATER - 496 ML IV SCH (01:08)
[2017-12-31] MEDS: PIPERACILLIN/TAZOB 3.375 GM 3.375 GM in DEXTROSE 5%-WATER - 50 ML IVPB SCH ×3 (01:08→18:09)
[2017-12-31] MEDS: HYDROCORTISONE SOD SUCCINATE 100 MG/2 ML VIAL IVPUSH SCH ×3 (01:08→18:09)
[2017-12-31] MEDS: DOPAMINE 400 MG/D5W - 400,000 MCG/250 ML INFUS.BAG IVPB SCH ×2 (01:36→18:09)
[2017-12-31 06:00] LABS: BASO % 0.1 % (0-2.0); HEMATOCRIT 25.6 % (35.4-49); LYMPH % 13.5 % (8-40); MCH 31.9 pg (25.7-33.7); MCHC 35.1 g/dl (32.0-35.9); MEAN CELL VOLUME 90.8 fl (80-96); MEAN PLT VOLUME 7.6 fl (7.5-11.1); MONO % 6.6 % (3.8-10.2); NEUT % 79.8 % (42.8-82.8); PLATELET COUNT 153 K/MM3 (134-434); RBC 2.82 M/mm3 (4.00-5.60); RDW 14.1 % (11.9-15.9); WHITE BLOOD COUNT 3.9 K/mm3 (4.0-10.0)
[2017-12-31 06:24] LABS: ALK PHOS 106 U/L (45-117); ANION GAP 6 (8-16); BILIRUBIN,TOTAL 0.2 mg/dL (0.2-1.0); BLOOD UREA NITROGEN 27 mg/dL (7-18); CALCIUM 7.6 mg/dL (8.5-10.1); CHLORIDE 114 mmol/L (98-107); CO2 27 mmol/L (21-32); CREATININE 1.5 mg/dL (0.7-1.3); GLUCOSE,RANDOM 168 mg/dL (74-106); MAGNESIUM 1.6 mg/dL (1.8-2.4); PHOSPHOROUS 3.9 mg/dL (2.5-4.9); SGOT/AST 13 U/L (15-37); SGPT/ALT 25 U/L (12-78); SODIUM 147 mmol/L (136-145); TOT PROT 5.2 g/dl (6.4-8.2)
[2017-12-31] MEDS: FUROSEMIDE 40 MG/4 ML INJECTABLE VIAL IVPUSH SCH ×2 (06:24→14:51)
--- NOTE | 2017-12-31 07:55 | PN ---
Progress Note, Physician Chief Complaint: ID Patient intubated getting antibiotic NO fevers actually hypothermic Remains on Zosyn since the Nov day 4 Culture no growth blood urine - Current Medication List Current Medications: Active Medications Chlorhexidine Gluconate (Hibiclens For Decolonization -) 1 applic TP HS [facility] Last Admin: 12/30/17 21:39 Dose: 1 applic Chlorhexidine Gluconate (Peridex -) 15 ml MM BID [facility] Last Admin: 12/30/17 21:40 Dose: 15 ml Furosemide (Lasix Injection -) 40 mg IVPUSH BID@0600,1400 [facility] Last Admin: 12/31/17 06:24 Dose: 40 mg Heparin Sodium (Porcine) (Heparin -) 5,000 unit IVPUSH PRN PRN PRN Reason: BOLUS Heparin Sodium (Porcine) (Heparin -) 1,000 unit IVPUSH PRN PRN PRN Reason: BOLUS Hydrocortisone Sodium Succinate (Solu-Cortef -) 100 mg IVPUSH Q8H-IV [facility] Last Admin: 12/31/17 01:08 Dose: 100 mg Piperacillin Sod/Tazobactam (Sod 3.375 gm/ Dextrose) 50 mls @ 100 mls/hr IVPB Q8H-IV RANDAL Last Admin: 12/31/17 01:08 Dose: 100 mls/hr Norepinephrine Bitartrate 4, (000 mcg/ Dextrose) 500 mls @ 37.5 mls/hr IV TITR RANDAL; 5 MCG/MIN PRN Reason: Protocol Last Admin: 12/31/17 01:08 Dose: Not Given Heparin Sodium/Dextrose (Heparin Infusion -) 25,000 units in 500 mls @ 20 mls/ hr IVPB TITR RANDAL; 1,000 UNITS/HR PRN Reason: Protocol Last Admin: 12/30/17 17:43 Dose: 600 units/hr, 12 mls/hr Dopamine HCl/Dextrose (Dopamine 400 Mg/D5w -) 400,000 mcg in 250 mls @ 15.394 mls/hr IVPB TITR RANDAL; 5 MCG/KG/MIN PRN Reason: Protocol Last Titration: 12/31/17 01:36 Dose: 5 mcg/kg/min, 15.394 mls/hr Levetiracetam (Keppra Injection -) 750 mg IVPB BID [facility] Last Admin: 12/30/17 21:40 Dose: 750 mg Magnesium Citrate (Citroma -) 300 ml PO ONCE ONE Stop: 12/31/17 07:46 Mupirocin (Bactroban Ointment (For Decolonization) -) 1 applic NS BID [facility] Stop: 01/01/18 21:59 Last Admin: 12/30/17 21:39 Dose: 1 applic Pantoprazole Sodium (Protonix Iv) 40 mg IVPUSH DAILY [facility] Last Admin: 12/30/17 10:24 Dose: 40 mg Potassium Chloride (Potassium Chloride Oral Liquid) 40 meq PO ONCE ONE Stop: 12/31/17 07:45 - Objective Vital Signs: Vital Signs Temperature 96.7 F L 12/31/17 05:00 Pulse Rate 44 L 12/31/17 05:00 Respiratory Rate 16 12/31/17 05:33 Blood Pressure 110/61 12/31/17 05:00 O2 Sat by Pulse Oximetry (%) 99 12/30/17 20:09 Constitutional: Yes: No Distress, Other (INtubated) Neck: Yes: Other (CVC line) Cardiovascular: Yes: S1, S2 Respiratory: Yes: WNL, Regular, CTA Bilaterally Gastrointestinal: Yes: WNL, Normal Bowel Sounds, Soft. No: Tenderness, Tenderness, Rebound Extremities: Yes: Other (Trace LE edema) Labs: CBC, BMP 12/31/17 05:40 12/31/17 05:40 INR, PTT INR 0.93 (0.82-1.09) D 12/27/17 12:10 Assessment/Plan Microbiology 12/27/17 22:31 Urine - Urine - Catheterized Urine Culture - Final NO GROWTH OBTAINED 12/27/17 12:10 Blood - Peripheral Venous Blood Culture - Preliminary NO GROWTH OBTAINED AFTER 72 HOURS, INCUBATION TO CONTINUE FOR 2 DAYS. 12/27/17 12:10 Blood - Peripheral Venous Blood Culture - Preliminary NO GROWTH OBTAINED AFTER 72 HOURS, INCUBATION TO CONTINUE FOR 2 DAYS. Laboratory Tests 12/27/17 12/31/17 12/31/17 22:29 05:40 05:40 WBC 3.9 L Hct 25.6 L Plt Count 153 D Neutrophils % 79.8 Lymphocytes % 13.5 Monocytes % 6.6 Eosinophils % 0.0 D Basophils % 0.1 BUN 27 H Creatinine 1.5 H Creat Clearance w eGFR 45.62 Total Bilirubin 0.2 D Alkaline Phosphatase 106 Ur Leukocyte Esterase 3+ H Assessment Sepsis ?? On treatment for urinary tract infection pyuria though neg cultures Seizure disorder Dementia Pancytopenia ? Plan Continue full course of treatment that is 7 days Zosyn Consider hematology evaluation for pancytopenia ? [email or web address] Marquez MD
[2017-12-31] MEDS ORDERED: MAGNESIUM SULF 50% (8.12 MEQ/2 ML-1 GM VIAL) ONE (08:26)
[2017-12-31] MEDS ORDERED: KCL 10 MEQ IVPB 10 MEQ/100 ML INFUS.BAG IVPB SCH (09:00)
[2017-12-31] MEDS ORDERED: MAGNESIUM 1GM/D5W - 1 GM/100 ML IVPB IVPB ONE (09:00)
[2017-12-31] MEDS ORDERED: MAGNESIUM CITRATE 300 ML BOTTLE PO ONE (09:00)
[2017-12-31] MEDS ORDERED: POTASSIUM CHLORIDE ORAL LIQUID 20 MEQ/15 ML PO ONE (09:00)
[2017-12-31] MEDS ORDERED: PT OWN MED DRAWER 7, Y5N ONE ×2 (10:03→18:07)
[2017-12-31] MEDS: levETIRAcetam 500 MG/5 ML INJECTION VIAL IVPB SCH ×2 (10:10→21:13)
[2017-12-31] MEDS: PANTOPRAZOLE SODIUM 40 MG VIAL IVPUSH SCH (10:10)
[2017-12-31] MEDS: CHLORHEXIDINE GLUCONATE 0.12% 15ML CUP MM SCH ×2 (10:11→21:13)
[2017-12-31] MEDS: MUPIROCIN 2% TOPICAL OINTMENT FOR DECOLONIZATION NS SCH ×2 (10:11→21:13)
--- NOTE | 2017-12-31 10:50 | PN ---
Progress Note (short form) - Note Progress Note: pt seen/ examined in icu. chart reviewed all f/u noted awake on vent do not follow commands on cpap Vital Signs Temp 98.1 F 12/31/17 10:00 Pulse 50 L 12/31/17 10:22 Resp 11 L 12/31/17 10:00 BP 104/62 12/31/17 10:00 Pulse Ox 96 12/31/17 10:22 Intake & Output 12/30/17 12/30/17 12/31/17 11:59 23:59 11:59 Intake Total 400 1109 344 Output Total 700 5200 800 Balance -300 -4091 -456 Weight 181 lb 170 lb 8 oz Intake: IV 280 529 224 20 LH 12/27 25 35 DOPAMINE 400 MG/D5W - 400 140 204 ,000 mcg In 250 ml @ 10 MCG/KG/MIN 28.917 mls/hr IVPB TITR RANDAL Rx#: [id number] DOPAMINE 400 MG/D5W - 400 80 105 ,000 mcg In 250 ml @ 5 MCG/KG/MIN 15.394 mls/hr IVPB TITR RANDAL Rx#: [id number] HEPARIN INFUSION - 25,000 140 220 84 units In 500 ml @ 1,000 UNITS/HR 20 mls/hr IVPB TITR RANDAL Rx#:[id number] Levophed - 4,000 Mcg In 0 D5w - 496 ml @ 5 MCG/MIN 37.5 mls/hr IV TITR RANDAL Rx#:[id number] IVPB 120 500 120 Oral 0 Tube Feeding 60 Tube Irrigant 20 Output: Urine 700 5200 800 Almanzar 700 5200 800 Other: Voiding Method Indwelling Catheter Indwelling Catheter Bowel Movement No No # Bowel Movements 1 Weight Measurement Method [facility] Active Medications Chlorhexidine Gluconate (Hibiclens For Decolonization -) 1 applic TP HS [facility] Last Admin: 12/30/17 21:39 Dose: 1 applic Chlorhexidine Gluconate (Peridex -) 15 ml MM BID RANDAL Last Admin: 12/31/17 10:11 Dose: 15 ml Furosemide (Lasix Injection -) 40 mg IVPUSH BID@0600,1400 [facility] Last Admin: 12/31/17 06:24 Dose: 40 mg Heparin Sodium (Porcine) (Heparin -) 5,000 unit IVPUSH PRN PRN PRN Reason: BOLUS Heparin Sodium (Porcine) (Heparin -) 1,000 unit IVPUSH PRN PRN PRN Reason: BOLUS Hydrocortisone Sodium Succinate (Solu-Cortef -) 100 mg IVPUSH Q8H-IV RANDAL Last Admin: 12/31/17 10:10 Dose: 100 mg Piperacillin Sod/Tazobactam (Sod 3.375 gm/ Dextrose) 50 mls @ 100 mls/hr IVPB Q8H-IV RANDAL Last Admin: 12/31/17 10:10 Dose: 100 mls/hr Norepinephrine Bitartrate 4, (000 mcg/ Dextrose) 500 mls @ 37.5 mls/hr IV TITR RANDAL; 5 MCG/MIN PRN Reason: Protocol Last Admin: 12/31/17 01:08 Dose: Not Given Heparin Sodium/Dextrose (Heparin Infusion -) 25,000 units in 500 mls @ 20 mls/ hr IVPB TITR RANDAL; 1,000 UNITS/HR PRN Reason: Protocol Last Admin: 12/30/17 17:43 Dose: 600 units/hr, 12 mls/hr Dopamine HCl/Dextrose (Dopamine 400 Mg/D5w -) 400,000 mcg in 250 mls @ 15.394 mls/hr IVPB TITR RANDAL; 5 MCG/KG/MIN PRN Reason: Protocol Last Titration: 12/31/17 01:36 Dose: 5 mcg/kg/min, 15.394 mls/hr Levetiracetam (Keppra Injection -) 750 mg IVPB BID [facility] Last Admin: 12/31/17 10:10 Dose: 750 mg Mupirocin (Bactroban Ointment (For Decolonization) -) 1 applic NS BID [facility] Stop: 01/01/18 21:59 Last Admin: 12/31/17 10:11 Dose: 1 applic Pantoprazole Sodium (Protonix Iv) 40 mg IVPUSH DAILY [facility] Last Admin: 12/31/17 10:10 Dose: 40 mg CBC, BMP 12/31/17 05:40 12/31/17 05:40 Microbiology 12/27/17 12:10 Blood Culture - Preliminary Blood - Peripheral Venous NO GROWTH OBTAINED AFTER 72 HOURS, INCUBATION TO CONTINUE FOR 2 DAYS. 12/27/17 12:10 Blood Culture - Preliminary Blood - Peripheral Venous NO GROWTH OBTAINED AFTER 72 HOURS, INCUBATION TO CONTINUE FOR 2 DAYS. Physical Exam. Constitutional: Yes: Other ( intubated)-- awake Cardiovascular: Yes: Bradycardia Respiratory: Yes: Diminished Gastrointestinal: Yes: Soft/ non tender Edema: LLE: 1+, RLE: 1+ Assessment/Plan better vent support- weaning as tolerated abx per i/d steroids Keppra continue present care discussed with icu attending again today discussed with nursing staff also. gautam for safety. cardiology to follow on heparin for afib. echo - pending will follow. cc time 25 min Problem List - Problems (1) Dementia Code(s): F03.90 - UNSPECIFIED DEMENTIA WITHOUT BEHAVIORAL DISTURBANCE (2) Hypothermia Code(s): T68.XXXA - HYPOTHERMIA, INITIAL ENCOUNTER Qualifiers: Encounter type: initial encounter Qualified Code(s): T68.XXXA - Hypothermia , initial encounter (3) Hypovolemic shock Code(s): R57.1 - HYPOVOLEMIC SHOCK (4) Pancreatitis Code(s): K85.90 - ACUTE PANCREATITIS WITHOUT NECROSIS OR INFECTION, UNSP (5) Paraphimosis Code(s): N47.2 - PARAPHIMOSIS (6) Seizure Code(s): R56.9 - UNSPECIFIED CONVULSIONS (7) Septic shock Code(s): A41.9 - SEPSIS, UNSPECIFIED ORGANISM; R65.21 - SEVERE SEPSIS WITH SEPTIC SHOCK (8) UTI (urinary tract infection) Code(s): N39.0 - URINARY TRACT INFECTION, SITE NOT SPECIFIED (9) Urethral stricture Code(s): N35.9 - URETHRAL STRICTURE, UNSPECIFIED
--- NOTE | 2017-12-31 12:37 | PN ---
Teaching Attending Note Name of Resident: Nicolás Haskins ATTENDING PHYSICIAN STATEMENT I saw and evaluated the patient. I reviewed the resident's note and discussed the case with the resident. I agree with the resident's findings and plan as documented. SUBJECTIVE: Patient seen and examined in the ICU. Remains intubated on AC Mode of vent, 40 % FiO2. Lethargic and poorly arousable, although he is off sedation. Dopamine drip for hemodynamic support. CXR: No gross change in right infiltrate/effusion Intake & Output 12/28/17 12/29/17 12/30/17 12/31/17 23:59 23:59 23:59 23:59 Intake Total 3427 2830 1509 344 Output Total 1000 1500 5900 800 Balance 5107 1330 -4391 -456 Weight 179 lb 12.8 oz 181 lb 7 oz 181 lb 170 lb 8 oz Last Vital Signs Temp Pulse Resp BP Pulse Ox 98.1 F 50 L 12 104/62 96 12/31/17 10:00 12/31/17 10:22 12/31/17 11:25 12/31/17 10:00 12/31/17 10:22 Active Medications Chlorhexidine Gluconate (Hibiclens For Decolonization -) 1 applic TP HS [facility] Last Admin: 12/30/17 21:39 Dose: 1 applic Chlorhexidine Gluconate (Peridex -) 15 ml MM BID [facility]ANDAL Last Admin: 12/31/17 10:11 Dose: 15 ml Furosemide (Lasix Injection -) 40 mg IVPUSH BID@0600,1400 [facility] Last Admin: 12/31/17 06:24 Dose: 40 mg Heparin Sodium (Porcine) (Heparin -) 5,000 unit IVPUSH PRN PRN PRN Reason: BOLUS Heparin Sodium (Porcine) (Heparin -) 1,000 unit IVPUSH PRN PRN PRN Reason: BOLUS Hydrocortisone Sodium Succinate (Solu-Cortef -) 100 mg IVPUSH Q8H-IV [facility]ANDAL Last Admin: 12/31/17 10:10 Dose: 100 mg Piperacillin Sod/Tazobactam (Sod 3.375 gm/ Dextrose) 50 mls @ 100 mls/hr IVPB Q8H-IV RANDAL Last Admin: 12/31/17 10:10 Dose: 100 mls/hr Norepinephrine Bitartrate 4, (000 mcg/ Dextrose) 500 mls @ 37.5 mls/hr IV TITR RANDAL; 5 MCG/MIN PRN Reason: Protocol Last Admin: 12/31/17 01:08 Dose: Not Given Heparin Sodium/Dextrose (Heparin Infusion -) 25,000 units in 500 mls @ 20 mls/ hr IVPB TITR RANDAL; 1,000 UNITS/HR PRN Reason: Protocol Last Admin: 12/30/17 17:43 Dose: 600 units/hr, 12 mls/hr Dopamine HCl/Dextrose (Dopamine 400 Mg/D5w -) 400,000 mcg in 250 mls @ 15.394 mls/hr IVPB TITR RANDAL; 5 MCG/KG/MIN PRN Reason: Protocol Last Titration: 12/31/17 01:36 Dose: 5 mcg/kg/min, 15.394 mls/hr Levetiracetam (Keppra Injection -) 750 mg IVPB BID [facility] Last Admin: 12/31/17 10:10 Dose: 750 mg Mupirocin (Bactroban Ointment (For Decolonization) -) 1 applic NS BID [facility]ANDAL Stop: 01/01/18 21:59 Last Admin: 12/31/17 10:11 Dose: 1 applic Pantoprazole Sodium (Protonix Iv) 40 mg IVPUSH DAILY [facility] Last Admin: 12/31/17 10:10 Dose: 40 mg Gen: intubated, lethargic and poorly arousable Heart: RRR Lung: decreased breath sounds at the bases Abd: soft, nontender Ext: + edema Laboratory Results - last 24 hr 12/30/17 12/31/17 12/31/17 15:00 05:40 05:40 WBC 3.9 L RBC 2.82 L Hgb 9.0 L Hct 25.6 L MCV 90.8 MCH 31.9 MCHC 35.1 RDW 14.1 Plt Count 153 D MPV 7.6 Neutrophils % 79.8 Lymphocytes % 13.5 Monocytes % 6.6 Eosinophils % 0.0 D Basophils % 0.1 PTT (Actin FS) 53.6 H D Sodium 147 H Potassium 3.0 L D Chloride 114 H Carbon Dioxide 27 D Anion Gap 6 L BUN 27 H Creatinine 1.5 H Creat Clearance w eGFR 45.62 Random Glucose 168 H D Calcium 7.6 L Phosphorus 3.9 Magnesium 1.6 L Total Bilirubin 0.2 D AST 13 L D ALT 25 Alkaline Phosphatase 106 Total Protein 5.2 L Albumin 2.0 L 12/31/17 05:40 WBC RBC Hgb Hct MCV MCH MCHC RDW Plt Count MPV Neutrophils % Lymphocytes % Monocytes % Eosinophils % Basophils % PTT (Actin FS) 50.0 H Sodium Potassium Chloride Carbon Dioxide Anion Gap BUN Creatinine Creat Clearance w eGFR Random Glucose Calcium Phosphorus Magnesium Total Bilirubin AST ALT Alkaline Phosphatase Total Protein Albumin Problem List - Problems (1) Seizure Code(s): R56.9 - UNSPECIFIED CONVULSIONS (2) Hypovolemic shock Code(s): R57.1 - HYPOVOLEMIC SHOCK (3) BPH (benign prostatic hyperplasia) Code(s): N40.0 - BENIGN PROSTATIC HYPERPLASIA WITHOUT LOWER URINRY TRACT SYMP (4) Hypothyroid Code(s): E03.9 - HYPOTHYROIDISM, UNSPECIFIED (5) Dementia Code(s): F03.90 - UNSPECIFIED DEMENTIA WITHOUT BEHAVIORAL DISTURBANCE A/P Seizure Disorder Hypovolemic/Septic Shock Acute Respiratory Failure UTI Pancytopenia Hypothyroidism BPH Dementia Bradycardia Atrial fibrillation - Taper dopamine drip - anticoagulation - continue empiric steroids - empiric antibiotics - O2 to keep SPo2 >90% - SBTs as tolerated, extubation will be dependent on his mental status - enteral feeds - DVT/GI prophylaxis - ICU monitoring Dr Parisi Critical care time spent in reviewing chart, evaluating patient and formulating plan 35 min
--- NOTE | 2017-12-31 14:13 | PN ---
Physical Exam: SUBJECTIVE: Mr. Lu is minimally responsive today. Per son baseline is nonverbal although he can shake his head no or nod yes. OBJECTIVE: No acute events overnight. Vital Signs Period Temp Pulse Resp BP Sys/Hampton Pulse Ox Last 24 Hr 96.2 F-98.1 F 42-53 9-18 90-128/51-68 96-100 GENERAL: +The patient is awake but unresponsive; in no acute distress. HEAD: Normal with no signs of trauma. EYES: PERRL, extraocular movements intact, sclera anicteric, conjunctiva clear. No ptosis. ENT: Ears normal, nares patent, oropharynx clear without exudates, moist mucous membranes. NECK: Trachea midline, full range of motion, supple. LUNGS: Breath sounds equal, clear to auscultation bilaterally, no wheezes, no crackles, no accessory muscle use. HEART: Regular rate and rhythm, S1, S2 without murmur, rub or gallop. ABDOMEN: Soft, nontender, nondistended, normoactive bowel sounds, no guarding, no rebound, no hepatosplenomegaly, no masses. EXTREMITIES: 2+ pulses, warm, well-perfused, no edema. NEUROLOGICAL: Cranial nerves II through XII grossly intact. Normal speech, gait not observed. PSYCH: +Unable to assess SKIN: Warm, dry, normal turgor, no rashes or lesions noted Laboratory Results - last 24 hr 12/30/17 12/31/17 12/31/17 15:00 05:40 05:40 WBC 3.9 L RBC 2.82 L Hgb 9.0 L Hct 25.6 L MCV 90.8 MCH 31.9 MCHC 35.1 RDW 14.1 Plt Count 153 D MPV 7.6 Neutrophils % 79.8 Lymphocytes % 13.5 Monocytes % 6.6 Eosinophils % 0.0 D Basophils % 0.1 PTT (Actin FS) 53.6 H D Sodium 147 H Potassium 3.0 L D Chloride 114 H Carbon Dioxide 27 D Anion Gap 6 L BUN 27 H Creatinine 1.5 H Creat Clearance w eGFR 45.62 Random Glucose 168 H D Calcium 7.6 L Phosphorus 3.9 Magnesium 1.6 L Total Bilirubin 0.2 D AST 13 L D ALT 25 Alkaline Phosphatase 106 Total Protein 5.2 L Albumin 2.0 L 12/31/17 05:40 WBC RBC Hgb Hct MCV MCH MCHC RDW Plt Count MPV Neutrophils % Lymphocytes % Monocytes % Eosinophils % Basophils % PTT (Actin FS) 50.0 H Sodium Potassium Chloride Carbon Dioxide Anion Gap BUN Creatinine Creat Clearance w eGFR Random Glucose Calcium Phosphorus Magnesium Total Bilirubin AST ALT Alkaline Phosphatase Total Protein Albumin Active Medications Generic Name Dose Route Start Last Admin Trade Name Freq PRN Reason Stop Dose Admin Chlorhexidine Gluconate 1 applic 12/27/17 22:00 12/30/17 21:39 Hibiclens For Decolonization - TP 1 applic HS RANDAL Administration Chlorhexidine Gluconate 15 ml 12/28/17 14:45 12/31/17 10:11 Peridex - MM 15 ml BID RANDAL Administration Furosemide 40 mg 12/30/17 10:30 12/31/17 06:24 Lasix Injection - IVPUSH 40 mg BID@0600,1400 RANDAL Administration Heparin Sodium (Porcine) 5,000 unit 12/29/17 14:43 Heparin - IVPUSH PRN PRN BOLUS Heparin Sodium (Porcine) 1,000 unit 12/29/17 14:43 Heparin - IVPUSH PRN PRN BOLUS Hydrocortisone Sodium Succinate 100 mg 12/29/17 10:30 12/31/17 10:10 Solu-Cortef - IVPUSH 100 mg Q8H-IV RANDAL Administration Piperacillin Sod/Tazobactam 50 mls @ 100 mls/hr 12/28/17 10:45 12/31/17 10:10 Sod 3.375 gm/ Dextrose IVPB 100 mls/hr Q8H-IV RANDAL Administration Norepinephrine Bitartrate 4, 500 mls @ 37.5 mls/hr 12/27/17 23:45 12/31/17 01 :08 000 mcg/ Dextrose IV Not Given TITR RANDAL Protocol 5 MCG/MIN Heparin Sodium/Dextrose 25,000 units in 500 mls @ 20 mls/hr 12/29/17 14:45 17:43 Heparin Infusion - IVPB 600 units/hr TITR RANDAL 12 mls/hr Protocol Administration 1,000 UNITS/HR Dopamine HCl/Dextrose 400,000 mcg in 250 mls @ 15.394 mls/hr 12/30/17 18:15 12/31/17 01:36 Dopamine 400 Mg/D5w - IVPB 5 mcg/kg/min TITR RANDAL 15.394 mls/hr Protocol Titration 5 MCG/KG/MIN Levetiracetam 750 mg 12/27/17 22:00 12/31/17 10:10 Keppra Injection - IVPB 750 mg BID RANDAL Administration Mupirocin 1 applic 12/27/17 22:00 12/31/17 10:11 Bactroban Ointment (For Decolonization) - NS 01/01/18 21:59 1 applic BID RANDAL Administration Pantoprazole Sodium 40 mg 12/29/17 10:00 12/31/17 10:10 Protonix Iv IVPUSH 40 mg DAILY RANDAL Administration ASSESSMENT/PLAN: Mr. Lu is a 77 yo male w/ pmh of hypothyroidism, dementia, BPH, seizure disorder, depression, urethral stricture who presented in acute septic shock to ER 2/2 UTI; currently weaning CPAP and zosyn day 4. Neuro - continue Keppra 750 BID - Assess for return to baseline Respiratory - On CPAP - weaning with goal to extubate later today Cardiology - Cardiology following - Levophed weaned; continue Dopamine ID - ID following - Zosyn day 4 - F/U cultures Chronic pancreatitis - noted on CT - Cont. to monitor lipase - npo and hydrate PPX - Heparin gtt FEN - Fluids as tolerated - Replete electrolytes PRN - NPO Disposition - Continue ICU care pending extubation and pressure support Visit type - Emergency Visit Emergency Visit: Yes ED Registration Date: 12/27/17 Care time: The patient presented to the Emergency Department on the above date and was hospitalized for further evaluation of their emergent condition. - New Patient This patient is new to me today: No - Critical Care Critical Care patient: Yes Total Critical Care Time (in minutes): 37 Critical Care Statement: The care of this patient involved high complexity decision making to prevent further life threatening deterioration of the patient 's condition and/or to evaluate & treat vital organ system(s) failure or risk of failure.
--- NOTE | 2017-12-31 14:44 | PN ---
Progress Note, Physician Chief Complaint: intubated tele sbrady History of Present Illness: The patient is a 77-year-old man with dementia, hypertension, hypothyroidism, BPH, seizure disorder, now admitted with seizures and hypothermia. The patient is currently intubated on pressors in the ICU. Has significant pulmonary congestion. echo 12/31/17 nlef mild TR - Current Medication List Current Medications: Active Medications Chlorhexidine Gluconate (Hibiclens For Decolonization -) 1 applic TP HS [facility] Last Admin: 12/30/17 21:39 Dose: 1 applic Chlorhexidine Gluconate (Peridex -) 15 ml MM BID [facility] Last Admin: 12/31/17 10:11 Dose: 15 ml Furosemide (Lasix Injection -) 40 mg IVPUSH BID@0600,1400 [facility] Last Admin: 12/31/17 06:24 Dose: 40 mg Heparin Sodium (Porcine) (Heparin -) 5,000 unit IVPUSH PRN PRN PRN Reason: BOLUS Heparin Sodium (Porcine) (Heparin -) 1,000 unit IVPUSH PRN PRN PRN Reason: BOLUS Hydrocortisone Sodium Succinate (Solu-Cortef -) 100 mg IVPUSH Q8H-IV RANDAL Last Admin: 12/31/17 10:10 Dose: 100 mg Piperacillin Sod/Tazobactam (Sod 3.375 gm/ Dextrose) 50 mls @ 100 mls/hr IVPB Q8H-IV RANDAL Last Admin: 12/31/17 10:10 Dose: 100 mls/hr Norepinephrine Bitartrate 4, (000 mcg/ Dextrose) 500 mls @ 37.5 mls/hr IV TITR RANDAL; 5 MCG/MIN PRN Reason: Protocol Last Admin: 12/31/17 01:08 Dose: Not Given Heparin Sodium/Dextrose (Heparin Infusion -) 25,000 units in 500 mls @ 20 mls/ hr IVPB TITR RANDAL; 1,000 UNITS/HR PRN Reason: Protocol Last Admin: 12/30/17 17:43 Dose: 600 units/hr, 12 mls/hr Dopamine HCl/Dextrose (Dopamine 400 Mg/D5w -) 400,000 mcg in 250 mls @ 15.394 mls/hr IVPB TITR RANDAL; 5 MCG/KG/MIN PRN Reason: Protocol Last Titration: 12/31/17 01:36 Dose: 5 mcg/kg/min, 15.394 mls/hr Levetiracetam (Keppra Injection -) 750 mg IVPB BID [facility] Last Admin: 12/31/17 10:10 Dose: 750 mg Mupirocin (Bactroban Ointment (For Decolonization) -) 1 applic NS BID [facility] Stop: 01/01/18 21:59 Last Admin: 12/31/17 10:11 Dose: 1 applic Pantoprazole Sodium (Protonix Iv) 40 mg IVPUSH DAILY [facility] Last Admin: 12/31/17 10:10 Dose: 40 mg - Objective Vital Signs: Vital Signs Temperature 98.1 F 12/31/17 10:00 Pulse Rate 50 L 12/31/17 10:22 Respiratory Rate 12 12/31/17 11:25 Blood Pressure 107/57 12/31/17 12:00 O2 Sat by Pulse Oximetry (%) 96 12/31/17 10:22 Constitutional: Yes: No Distress, Calm Eyes: Yes: EOM Intact HENT: Yes: Normocephalic Neck: Yes: Trachea Midline Cardiovascular: Yes: Regular Rate and Rhythm, Bradycardia Respiratory: Yes: Mechanically Ventilated Gastrointestinal: Yes: Normal Bowel Sounds, Soft Extremities: Yes: WNL Edema: No Peripheral Pulses WNL: Yes Labs: CBC, BMP 12/31/17 05:40 12/31/17 05:40 INR, PTT INR 0.93 (0.82-1.09) D 12/27/17 12:10 Problem List - Problems (1) PAF (paroxysmal atrial fibrillation) Assessment/Plan: He is now in sinus rhythm. No significant abnormalities on echo. would not pursue further cardiac workup at this point. will see as needed. Code(s): I48.0 - PAROXYSMAL ATRIAL FIBRILLATION
[2017-12-31] MEDS: HEPARIN INFUSION - 25,000 UNITS/500 ML INFUS.BAG IVPB SCH (18:11)
[2017-12-31] MEDS: CHLORHEXIDINE GLUCONATE 4% CLEANSER FOR DECOLONIZATION TP SCH (21:13)
[2018-01-01] MEDS ORDERED: PT OWN MED DRAWER 7, Y5N ONE ×2 (01:06→17:22)
[2018-01-01] MEDS: PIPERACILLIN/TAZOB 3.375 GM 3.375 GM in DEXTROSE 5%-WATER - 50 ML IVPB SCH ×3 (01:11→17:31)
[2018-01-01] MEDS: HYDROCORTISONE SOD SUCCINATE 100 MG/2 ML VIAL IVPUSH SCH ×3 (01:16→17:31)
[2018-01-01] MEDS: FUROSEMIDE 40 MG/4 ML INJECTABLE VIAL IVPUSH SCH ×2 (05:35→14:22)
[2018-01-01 06:22] LABS: BASO % 0.1 % (0-2.0); EOS % 0.1 % (0-4.5); HEMATOCRIT 25.2 % (35.4-49); LYMPH % 15.5 % (8-40); MCH 32.4 pg (25.7-33.7); MCHC 35.5 g/dl (32.0-35.9); MEAN CELL VOLUME 91.5 fl (80-96); MEAN PLT VOLUME 7.8 fl (7.5-11.1); MONO % 8.2 % (3.8-10.2); NEUT % 76.1 % (42.8-82.8); PLATELET COUNT 174 K/MM3 (134-434); RBC 2.76 M/mm3 (4.00-5.60); RDW 14.3 % (11.9-15.9); WHITE BLOOD COUNT 3.8 K/mm3 (4.0-10.0)
[2018-01-01 06:34] LABS: CHLORIDE 110 mmol/L (98-107); SODIUM 148 mmol/L (136-145)
[2018-01-01 06:39] LABS: ANION GAP 8 (8-16); BLOOD UREA NITROGEN 33 mg/dL (7-18); CALCIUM 7.3 mg/dL (8.5-10.1); CO2 30 mmol/L (21-32); CREATININE 1.6 mg/dL (0.7-1.3); GLUCOSE,RANDOM 172 mg/dL (74-106); MAGNESIUM 1.8 mg/dL (1.8-2.4)
[2018-01-01 06:53] LABS: POTASSIUM 2.9 mmol/L (3.5-5.1)
[2018-01-01] MEDS: HEPARIN INFUSION - 25,000 UNITS/500 ML INFUS.BAG IVPB SCH ×2 (08:14→17:32)
[2018-01-01] MEDS: KCL 10 MEQ IVPB 10 MEQ/100 ML INFUS.BAG IVPB SCH ×3 (08:15→10:26)
[2018-01-01] MEDS: DOPAMINE 400 MG/D5W - 400,000 MCG/250 ML INFUS.BAG IVPB SCH ×2 (08:16→17:32)
[2018-01-01] MEDS: NOREPINEPHRINE BITARTRATE 4,000 MCG in DEXTROSE 5%-WATER - 496 ML IV SCH ×2 (08:21→13:52)
--- NOTE | 2018-01-01 09:20 | PN ---
Progress Note (short form) - Note Progress Note: intubated Vital Signs remains on dopamine eyes open Vital Signs Period Temp Pulse Resp BP Sys/Hampton Pulse Ox Last 24 Hr 98 F-99.2 F 32-72 11-19 79-150/46-75 96-98 cor-rrr lungs decreased bs at bases abd soft,nt ext no edema +alva CBC, BMP 01/01/18 05:17 01/01/18 05:17 Microbiology 12/27/17 12:10 Blood - Peripheral Venous Blood Culture - Preliminary NO GROWTH OBTAINED AFTER 96 HOURS, INCUBATION TO CONTINUE FOR 1 DAYS. 12/27/17 12:10 Blood - Peripheral Venous Blood Culture - Preliminary NO GROWTH OBTAINED AFTER 96 HOURS, INCUBATION TO CONTINUE FOR 1 DAYS. 12/27/17 22:31 Urine - Urine - Catheterized Urine Culture - Final NO GROWTH OBTAINED cxray pending- yesterday- ?right basilar infiltrate/effusion a/p sepsis- most likely due to uti, urine culture sent after antibiotics were given seizures-known seizure disorder urethral stricture- difficulty placing alva catheter respiratory failure-intubated for lethargy/airway protection in ed ?right basilar pneumonia leukopenia- chronic, ?meds- consider hematology evaluation anemia- new continue zosyn as ordered-day #5 of 7 Problem List - Problems (1) Sepsis Code(s): A41.9 - SEPSIS, UNSPECIFIED ORGANISM (2) UTI (urinary tract infection) Code(s): N39.0 - URINARY TRACT INFECTION, SITE NOT SPECIFIED (3) Seizure Code(s): R56.9 - UNSPECIFIED CONVULSIONS (4) Anemia Code(s): D64.9 - ANEMIA, UNSPECIFIED (5) Respiratory failure, acute Code(s): J96.00 - ACUTE RESPIRATORY FAILURE, UNSP W HYPOXIA OR HYPERCAPNIA
[2018-01-01] MEDS: CHLORHEXIDINE GLUCONATE 0.12% 15ML CUP MM SCH ×2 (10:27→21:06)
[2018-01-01] MEDS: levETIRAcetam 500 MG/5 ML INJECTION VIAL IVPB SCH ×2 (10:27→21:06)
--- NOTE | 2018-01-01 10:27 | PN ---
Progress Note, Physician - Current Medication List Current Medications: Active Medications Chlorhexidine Gluconate (Hibiclens For Decolonization -) 1 applic TP HS [facility] Last Admin: 12/31/17 21:13 Dose: 1 applic Chlorhexidine Gluconate (Peridex -) 15 ml MM BID [facility] Last Admin: 12/31/17 21:13 Dose: 15 ml Furosemide (Lasix Injection -) 40 mg IVPUSH BID@0600,1400 [facility] Last Admin: 01/01/18 05:35 Dose: 40 mg Heparin Sodium (Porcine) (Heparin -) 5,000 unit IVPUSH PRN PRN PRN Reason: BOLUS Heparin Sodium (Porcine) (Heparin -) 1,000 unit IVPUSH PRN PRN PRN Reason: BOLUS Last Admin: 01/01/18 06:43 Dose: 1,000 unit Hydrocortisone Sodium Succinate (Solu-Cortef -) 100 mg IVPUSH Q8H-IV [facility]ANDAL Last Admin: 01/01/18 01:16 Dose: 100 mg Piperacillin Sod/Tazobactam (Sod 3.375 gm/ Dextrose) 50 mls @ 100 mls/hr IVPB Q8H-IV RANDAL Last Admin: 01/01/18 01:11 Dose: 100 mls/hr Heparin Sodium/Dextrose (Heparin Infusion -) 25,000 units in 500 mls @ 20 mls/ hr IVPB TITR RANDAL; 1,000 UNITS/HR PRN Reason: Protocol Last Admin: 01/01/18 08:14 Dose: 700 units/hr, 14 mls/hr Dopamine HCl/Dextrose (Dopamine 400 Mg/D5w -) 400,000 mcg in 250 mls @ 15.394 mls/hr IVPB TITR RANDAL; 5 MCG/KG/MIN PRN Reason: Protocol Last Admin: 01/01/18 08:16 Dose: 5 mcg/kg/min, 15.394 mls/hr Potassium Chloride (Potassium Chloride 10 Meq Premix Ivpb -) 10 meq in 100 mls @ 100 mls/hr IVPB Q60M [facility] Stop: 01/01/18 11:14 Last Admin: 01/01/18 09:44 Dose: 100 mls/hr Levetiracetam (Keppra Injection -) 750 mg IVPB BID [facility] Last Admin: 12/31/17 21:13 Dose: 750 mg Mupirocin (Bactroban Ointment (For Decolonization) -) 1 applic NS BID [facility] Stop: 01/01/18 21:59 Last Admin: 12/31/17 21:13 Dose: 1 applic Pantoprazole Sodium (Protonix Iv) 40 mg IVPUSH DAILY [facility] Last Admin: 12/31/17 10:10 Dose: 40 mg - Objective Vital Signs: Vital Signs Temperature 98.2 F 01/01/18 08:00 Pulse Rate 42 L 01/01/18 08:20 Respiratory Rate 15 01/01/18 09:48 Blood Pressure 107/58 01/01/18 09:48 O2 Sat by Pulse Oximetry (%) 98 01/01/18 08:20 Labs: CBC, BMP 01/01/18 05:17 01/01/18 05:17 INR, PTT INR 0.93 (0.82-1.09) D 12/27/17 12:10
[2018-01-01] MEDS: PANTOPRAZOLE SODIUM 40 MG VIAL IVPUSH SCH (10:28)
[2018-01-01] MEDS: MUPIROCIN 2% TOPICAL OINTMENT FOR DECOLONIZATION NS SCH (10:29)
--- NOTE | 2018-01-01 12:51 | PN ---
Progress Note (short form) - Note Progress Note: patient seen and examined in ICU. extubated today Son at bedside. remains on dopamine drip--- For bradycardia In sinus rhythm On heparin drip All follow-ups noted Vital Signs Temp 98.2 F 01/01/18 08:00 Pulse 43 L 01/01/18 11:34 Resp 15 01/01/18 09:48 BP 110/60 01/01/18 11:30 Pulse Ox 96 01/01/18 11:34 Intake & Output 12/31/17 01/01/18 01/01/18 23:59 11:59 23:59 Intake Total 1569 1198.8 Output Total 5000 600 Balance -3431 598.8 Weight 166 lb 8 oz Intake: IV 349 328.8 DOPAMINE 400 MG/D5W - 400 105 184.8 ,000 mcg In 250 ml @ 5 MCG/KG/MIN 15.394 mls/hr IVPB TITR RANDAL Rx#: [id number] HEPARIN INFUSION - 25,000 244 144 units In 500 ml @ 1,000 UNITS/HR 20 mls/hr IVPB TITR RANDAL Rx#:[id number] IVPB 500 150 Tube Feeding 600 600 Tube Irrigant 120 120 Output: Urine 5000 600 Almanzar 5000 600 Other: Voiding Method Indwelling Catheter Indwelling Catheter Bowel Movement Yes No # Bowel Movements 1 Weight Measurement Method Built in [facility] Active Medications Chlorhexidine Gluconate (Hibiclens For Decolonization -) 1 applic TP HS [facility] Last Admin: 12/31/17 21:13 Dose: 1 applic Chlorhexidine Gluconate (Peridex -) 15 ml MM BID [facility] Last Admin: 01/01/18 10:27 Dose: 15 ml Furosemide (Lasix Injection -) 40 mg IVPUSH BID@0600,1400 [facility] Last Admin: 01/01/18 05:35 Dose: 40 mg Heparin Sodium (Porcine) (Heparin -) 5,000 unit IVPUSH PRN PRN PRN Reason: BOLUS Heparin Sodium (Porcine) (Heparin -) 1,000 unit IVPUSH PRN PRN PRN Reason: BOLUS Last Admin: 01/01/18 06:43 Dose: 1,000 unit Hydrocortisone Sodium Succinate (Solu-Cortef -) 100 mg IVPUSH Q8H-IV [facility] Last Admin: 01/01/18 10:27 Dose: 100 mg Piperacillin Sod/Tazobactam (Sod 3.375 gm/ Dextrose) 50 mls @ 100 mls/hr IVPB Q8H-IV [facility] Last Admin: 01/01/18 10:51 Dose: 100 mls/hr Heparin Sodium/Dextrose (Heparin Infusion -) 25,000 units in 500 mls @ 20 mls/ hr IVPB TITR RANDAL; 1,000 UNITS/HR PRN Reason: Protocol Last Admin: 01/01/18 08:14 Dose: 700 units/hr, 14 mls/hr Dopamine HCl/Dextrose (Dopamine 400 Mg/D5w -) 400,000 mcg in 250 mls @ 15.394 mls/hr IVPB TITR RANDAL; 5 MCG/KG/MIN PRN Reason: Protocol Last Titration: 01/01/18 11:30 Dose: 4 mcg/kg/min, 12.315 mls/hr Levetiracetam (Keppra Injection -) 750 mg IVPB BID [facility] Last Admin: 01/01/18 10:27 Dose: 750 mg Mupirocin (Bactroban Ointment (For Decolonization) -) 1 applic NS BID [facility] Stop: 01/01/18 21:59 Last Admin: 01/01/18 10:29 Dose: 1 applic Pantoprazole Sodium (Protonix Iv) 40 mg IVPUSH DAILY [facility] Last Admin: 01/01/18 10:28 Dose: 40 mg CBC, BMP 01/01/18 05:17 01/01/18 05:17 Microbiology 12/27/17 12:10 Blood Culture - Final Blood - Peripheral Venous NO GROWTH AFTER 5 DAYS INCUBATION 12/27/17 12:10 Blood Culture - Final Blood - Peripheral Venous NO GROWTH AFTER 5 DAYS INCUBATION Physical Exam. 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 Discussed with patient s son--- reports patient has advanced dementia Continue antibiotics per ID Maintain Almanzar Urology on case Will follow. Problem List - Problems (1) Dementia Code(s): F03.90 - UNSPECIFIED DEMENTIA WITHOUT BEHAVIORAL DISTURBANCE (2) Hypothermia Code(s): T68.XXXA - HYPOTHERMIA, INITIAL ENCOUNTER Qualifiers: Encounter type: initial encounter Qualified Code(s): T68.XXXA - Hypothermia , initial encounter (3) Hypovolemic shock Code(s): R57.1 - HYPOVOLEMIC SHOCK (4) Pancreatitis Code(s): K85.90 - ACUTE PANCREATITIS WITHOUT NECROSIS OR INFECTION, UNSP (5) Paraphimosis Code(s): N47.2 - PARAPHIMOSIS (6) Seizure Code(s): R56.9 - UNSPECIFIED CONVULSIONS (7) Septic shock Code(s): A41.9 - SEPSIS, UNSPECIFIED ORGANISM; R65.21 - SEVERE SEPSIS WITH SEPTIC SHOCK (8) UTI (urinary tract infection) Code(s): N39.0 - URINARY TRACT INFECTION, SITE NOT SPECIFIED (9) Urethral stricture Code(s): N35.9 - URETHRAL STRICTURE, UNSPECIFIED
--- NOTE | 2018-01-01 13:24 | PN ---
Teaching Attending Note Name of Resident: Nicolás Haskins ATTENDING PHYSICIAN STATEMENT I saw and evaluated the patient. I reviewed the resident's note and discussed the case with the resident. I agree with the resident's findings and plan as documented. SUBJECTIVE: Patient seen and examined in the ICU. Remains intubated on AC Mode of vent, 40 % FiO2. More awake and responsive. Remains on Dopamine. HR noted to drop when off. CXR: No gross change in right infiltrate/effusion Intake & Output 12/29/17 12/30/17 12/31/17 01/01/18 23:59 23:59 23:59 23:59 Intake Total 2830 1509 1913 1198.8 Output Total 1500 5900 5800 600 Balance 6810 -6205 -8255 598.8 Weight 181 lb 7 oz 181 lb 170 lb 8 oz 166 lb 8 oz Last Vital Signs Temp Pulse Resp BP Pulse Ox 98.2 F 43 L 15 110/60 96 01/01/18 08:00 01/01/18 11:34 01/01/18 09:48 01/01/18 11:30 01/01/18 11:34 Active Medications Chlorhexidine Gluconate (Hibiclens For Decolonization -) 1 applic TP HS [facility] Last Admin: 12/31/17 21:13 Dose: 1 applic Chlorhexidine Gluconate (Peridex -) 15 ml MM BID [facility] Last Admin: 01/01/18 10:27 Dose: 15 ml Furosemide (Lasix Injection -) 40 mg IVPUSH BID@0600,1400 [facility] Last Admin: 01/01/18 05:35 Dose: 40 mg Heparin Sodium (Porcine) (Heparin -) 5,000 unit IVPUSH PRN PRN PRN Reason: BOLUS Heparin Sodium (Porcine) (Heparin -) 1,000 unit IVPUSH PRN PRN PRN Reason: BOLUS Last Admin: 01/01/18 06:43 Dose: 1,000 unit Hydrocortisone Sodium Succinate (Solu-Cortef -) 100 mg IVPUSH Q8H-IV [facility] Last Admin: 01/01/18 10:27 Dose: 100 mg Piperacillin Sod/Tazobactam (Sod 3.375 gm/ Dextrose) 50 mls @ 100 mls/hr IVPB Q8H-IV [facility] Last Admin: 01/01/18 10:51 Dose: 100 mls/hr Heparin Sodium/Dextrose (Heparin Infusion -) 25,000 units in 500 mls @ 20 mls/ hr IVPB TITR RANDAL; 1,000 UNITS/HR PRN Reason: Protocol Last Admin: 01/01/18 08:14 Dose: 700 units/hr, 14 mls/hr Dopamine HCl/Dextrose (Dopamine 400 Mg/D5w -) 400,000 mcg in 250 mls @ 15.394 mls/hr IVPB TITR RANDAL; 5 MCG/KG/MIN PRN Reason: Protocol Last Titration: 01/01/18 11:30 Dose: 4 mcg/kg/min, 12.315 mls/hr Levetiracetam (Keppra Injection -) 750 mg IVPB BID [facility] Last Admin: 01/01/18 10:27 Dose: 750 mg Mupirocin (Bactroban Ointment (For Decolonization) -) 1 applic NS BID [facility] Stop: 01/01/18 21:59 Last Admin: 01/01/18 10:29 Dose: 1 applic Pantoprazole Sodium (Protonix Iv) 40 mg IVPUSH DAILY [facility] Last Admin: 01/01/18 10:28 Dose: 40 mg Gen: intubated, awake Heart: RRR Lung: decreased breath sounds at the bases Abd: soft, nontender Ext: + edema Laboratory Results - last 24 hr 12/29/17 01/01/18 01/01/18 05:50 05:17 05:17 WBC 3.8 L RBC 2.76 L Hgb 9.0 L Hct 25.2 L MCV 91.5 MCH 32.4 MCHC 35.5 RDW 14.3 Plt Count 174 MPV 7.8 Neutrophils % 76.1 Lymphocytes % 15.5 Monocytes % 8.2 Eosinophils % 0.1 D Basophils % 0.1 PTT (Actin FS) Sodium 148 H Potassium 2.9 L* Chloride 110 H Carbon Dioxide 30 Anion Gap 8 BUN 33 H D Creatinine 1.6 H Random Glucose 172 H Calcium 7.3 L Phosphorus 3.0 D Magnesium 1.8 IgG4 38 EBV Nuclear Antigen 320.0 H 01/01/18 05:17 WBC RBC Hgb Hct MCV MCH MCHC RDW Plt Count MPV Neutrophils % Lymphocytes % Monocytes % Eosinophils % Basophils % PTT (Actin FS) 46.4 H Sodium Potassium Chloride Carbon Dioxide Anion Gap BUN Creatinine Random Glucose Calcium Phosphorus Magnesium IgG4 EBV Nuclear Antigen Problem List - Problems (1) Seizure Code(s): R56.9 - UNSPECIFIED CONVULSIONS (2) Hypovolemic shock Code(s): R57.1 - HYPOVOLEMIC SHOCK (3) BPH (benign prostatic hyperplasia) Code(s): N40.0 - BENIGN PROSTATIC HYPERPLASIA WITHOUT LOWER URINRY TRACT SYMP (4) Hypothyroid Code(s): E03.9 - HYPOTHYROIDISM, UNSPECIFIED (5) Dementia Code(s): F03.90 - UNSPECIFIED DEMENTIA WITHOUT BEHAVIORAL DISTURBANCE A/P Seizure Disorder Hypovolemic/Septic Shock Acute Respiratory Failure UTI Pancytopenia Hypothyroidism BPH Dementia Bradycardia Atrial fibrillation - Dopamine drip: Cardiology followup - anticoagulation - continue empiric steroids - empiric antibiotics - O2 to keep SPo2 >90% - SBTs with trial of extubation - enteral feeds - DVT/GI prophylaxis - ICU monitoring Dr Parisi Critical care time spent in reviewing chart, evaluating patient and formulating plan 36 min
--- NOTE | 2018-01-01 14:01 | PN ---
Physical Exam: SUBJECTIVE: Mr. Lu remains non-verbal at this time. No complaints expressed. OBJECTIVE: No acute events overnight. Vital Signs Period Temp Pulse Resp BP Sys/[place] Pulse Ox Last 24 Hr 98 F-99.2 F 32-72 11-19 79-150/46-75 96-98 GENERAL: The patient is awake and alert, minimally expressive, in no acute distress. HEAD: Normal with no signs of trauma. EYES: PERRL, extraocular movements intact, sclera anicteric, conjunctiva clear. No ptosis. ENT: Ears normal, nares patent, oropharynx clear without exudates, moist mucous membranes. NECK: Trachea midline, full range of motion, supple. LUNGS: Breath sounds equal, clear to auscultation bilaterally, no wheezes, no crackles, no accessory muscle use. HEART: Regular rate and rhythm, S1, S2 without murmur, rub or gallop. ABDOMEN: Soft, nontender, nondistended, normoactive bowel sounds, no guarding, no rebound, no hepatosplenomegaly, no masses. EXTREMITIES: 2+ pulses, warm, well-perfused, no edema. NEUROLOGICAL: Cranial nerves II through XII grossly intact. Normal speech, gait not observed. PSYCH: +Unable to assess. SKIN: Warm, dry, normal turgor, no rashes or lesions noted Laboratory Results - last 24 hr 12/29/17 01/01/18 01/01/18 05:50 05:17 05:17 WBC 3.8 L RBC 2.76 L Hgb 9.0 L Hct 25.2 L MCV 91.5 MCH 32.4 MCHC 35.5 RDW 14.3 Plt Count 174 MPV 7.8 Neutrophils % 76.1 Lymphocytes % 15.5 Monocytes % 8.2 Eosinophils % 0.1 D Basophils % 0.1 PTT (Actin FS) Sodium 148 H Potassium 2.9 L* Chloride 110 H Carbon Dioxide 30 Anion Gap 8 BUN 33 H D Creatinine 1.6 H Random Glucose 172 H Calcium 7.3 L Phosphorus 3.0 D Magnesium 1.8 IgG4 38 EBV Nuclear Antigen 320.0 H 01/01/18 05:17 WBC RBC Hgb Hct MCV MCH MCHC RDW Plt Count MPV Neutrophils % Lymphocytes % Monocytes % Eosinophils % Basophils % PTT (Actin FS) 46.4 H Sodium Potassium Chloride Carbon Dioxide Anion Gap BUN Creatinine Random Glucose Calcium Phosphorus Magnesium IgG4 EBV Nuclear Antigen Active Medications Generic Name Dose Route Start Last Admin Trade Name Freq PRN Reason Stop Dose Admin Chlorhexidine Gluconate 1 applic 12/27/17 22:00 12/31/17 21:13 Hibiclens For Decolonization - TP 1 applic HS [facility]AL Administration Chlorhexidine Gluconate 15 ml 12/28/17 14:45 01/01/18 10:27 Peridex - MM 15 ml BID [facility]AL Administration Furosemide 40 mg 12/30/17 10:30 01/01/18 05:35 Lasix Injection - IVPUSH 40 mg BID@0600,1400 [facility]AL Administration Heparin Sodium (Porcine) 5,000 unit 12/29/17 14:43 Heparin - IVPUSH PRN PRN BOLUS Heparin Sodium (Porcine) 1,000 unit 12/29/17 14:43 01/01/18 06:43 Heparin - IVPUSH 1,000 unit PRN PRN Administration BOLUS Hydrocortisone Sodium Succinate 100 mg 12/29/17 10:30 01/01/18 10:27 Solu-Cortef - IVPUSH 100 mg Q8H-IV [facility] Administration Piperacillin Sod/Tazobactam 50 mls @ 100 mls/hr 12/28/17 10:45 01/01/18 10:51 Sod 3.375 gm/ Dextrose IVPB 100 mls/hr Q8H-IV [facility]AL Administration Heparin Sodium/Dextrose 25,000 units in 500 mls @ 20 mls/hr 12/29/17 14:45 08:14 Heparin Infusion - IVPB 700 units/hr TITR RANDAL 14 mls/hr Protocol Administration 1,000 UNITS/HR Dopamine HCl/Dextrose 400,000 mcg in 250 mls @ 15.394 mls/hr 12/30/17 18:15 01/01/18 11:30 Dopamine 400 Mg/D5w - IVPB 4 mcg/kg/min TITR RANDAL 12.315 mls/hr Protocol Titration 5 MCG/KG/MIN Levetiracetam 750 mg 12/27/17 22:00 01/01/18 10:27 Keppra Injection - IVPB 750 mg BID [facility] Administration Mupirocin 1 applic 12/27/17 22:00 01/01/18 10:29 Bactroban Ointment (For Decolonization) - NS 01/01/18 21:59 1 applic BID [facility] Administration Pantoprazole Sodium 40 mg 12/29/17 10:00 01/01/18 10:28 Protonix Iv IVPUSH 40 mg DAILY [facility] Administration ASSESSMENT/PLAN: Mr. Lu is a 77 yo male w/ pmh of hypothyroidism, dementia, BPH, seizure disorder, depression, urethral stricture who presented in acute septic shock to ER 2/2 UTI; extubated successfully after RSBI noted to be 15/450 (33). Patient currently saturating well on venturi mask at 40% Neuro - continue Keppra 750 BID - Assess for return to baseline Respiratory - Wean venturi as tolerated Cardiology - Cardiology following - Levophed weaned; continue Dopamine - Will monitor bradycardia for improvement w/ treatment of sepsis. ID - ID following - Zosyn day 5 - F/U cultures Chronic pancreatitis - noted on CT - Cont. to monitor lipase - npo and hydrate PPX - Heparin gtt FEN - Fluids as tolerated - Replete electrolytes PRN - NPO Disposition - Continue ICU care pending improvement of pulse and pressure support wean. Visit type - Emergency Visit Emergency Visit: Yes ED Registration Date: 12/27/17 Care time: The patient presented to the Emergency Department on the above date and was hospitalized for further evaluation of their emergent condition. - New Patient This patient is new to me today: No - Critical Care Critical Care patient: Yes Total Critical Care Time (in minutes): 35 Critical Care Statement: The care of this patient involved high complexity decision making to prevent further life threatening deterioration of the patient 's condition and/or to evaluate & treat vital organ system(s) failure or risk of failure.
--- NOTE | 2018-01-01 14:49 | PN ---
Progress Note, Physician Chief Complaint: extubated, nonverbal, eyes open tele sbrady, had fabrice to 30's with junctional escape. History of Present Illness: The patient is a 77-year-old man with dementia, hypertension, hypothyroidism, BPH, seizure disorder, now admitted with seizures and hypothermia. The patient was intubated on pressors in the ICU. Has significant pulmonary congestion. Extubated 01/01/18. Dopamine decreased with resulting severe sinus bradycardia to 30s with junctional escape beats. Increased back to 5 mcg echo 12/31/17 nlef mild TR - Current Medication List Current Medications: Active Medications Chlorhexidine Gluconate (Hibiclens For Decolonization -) 1 applic TP HS [facility] Last Admin: 12/31/17 21:13 Dose: 1 applic Chlorhexidine Gluconate (Peridex -) 15 ml MM BID [facility] Last Admin: 01/01/18 10:27 Dose: 15 ml Furosemide (Lasix Injection -) 40 mg IVPUSH BID@0600,1400 [facility] Last Admin: 01/01/18 14:22 Dose: 40 mg Heparin Sodium (Porcine) (Heparin -) 5,000 unit IVPUSH PRN PRN PRN Reason: BOLUS Heparin Sodium (Porcine) (Heparin -) 1,000 unit IVPUSH PRN PRN PRN Reason: BOLUS Last Admin: 01/01/18 06:43 Dose: 1,000 unit Hydrocortisone Sodium Succinate (Solu-Cortef -) 100 mg IVPUSH Q8H-IV [facility] Last Admin: 01/01/18 10:27 Dose: 100 mg Piperacillin Sod/Tazobactam (Sod 3.375 gm/ Dextrose) 50 mls @ 100 mls/hr IVPB Q8H-IV [facility] Last Admin: 01/01/18 10:51 Dose: 100 mls/hr Heparin Sodium/Dextrose (Heparin Infusion -) 25,000 units in 500 mls @ 20 mls/ hr IVPB TITR RANDAL; 1,000 UNITS/HR PRN Reason: Protocol Last Titration: 01/01/18 14:23 Dose: 700 units/hr, 14 mls/hr Dopamine HCl/Dextrose (Dopamine 400 Mg/D5w -) 400,000 mcg in 250 mls @ 15.394 mls/hr IVPB TITR RANDAL; 5 MCG/KG/MIN PRN Reason: Protocol Last Titration: 01/01/18 11:30 Dose: 4 mcg/kg/min, 12.315 mls/hr Levetiracetam (Keppra Injection -) 750 mg IVPB BID [facility] Last Admin: 01/01/18 10:27 Dose: 750 mg Mupirocin (Bactroban Ointment (For Decolonization) -) 1 applic NS BID [facility] Stop: 01/01/18 21:59 Last Admin: 01/01/18 10:29 Dose: 1 applic Pantoprazole Sodium (Protonix Iv) 40 mg IVPUSH DAILY [facility] Last Admin: 01/01/18 10:28 Dose: 40 mg - Objective Vital Signs: Vital Signs Temperature 98.2 F 01/01/18 08:00 Pulse Rate 44 L 01/01/18 14:00 Respiratory Rate 14 01/01/18 14:00 Blood Pressure 132/64 01/01/18 14:00 O2 Sat by Pulse Oximetry (%) 99 01/01/18 14:36 Constitutional: Yes: No Distress Eyes: Yes: Conjunctiva Clear, EOM Intact HENT: Yes: Atraumatic, Normocephalic Neck: Yes: Supple, Trachea Midline Cardiovascular: Yes: Regular Rate and Rhythm, Bradycardia Respiratory: Yes: Diminished Gastrointestinal: Yes: Normal Bowel Sounds, Soft Musculoskeletal: Yes: WNL Edema: No Peripheral Pulses WNL: Yes Labs: CBC, BMP 01/01/18 05:17 01/01/18 05:17 INR, PTT INR 0.93 (0.82-1.09) D 12/27/17 12:10 Problem List - Problems (1) PAF (paroxysmal atrial fibrillation) Assessment/Plan: He is now in sinus rhythm. No significant abnormalities on echo. continue on IV heparin, will consider NOAC when stable. He has tachy-fabrice syndrome. Given his risk of recurrent infections, poor mental and functional status I would like to manage conservatively. He is a poor candidate for Pacemaker implantation. Avoid any AV liliana blocking agents. Will follow. Code(s): I48.0 - PAROXYSMAL ATRIAL FIBRILLATION
[2018-01-01] MEDS ORDERED: POTASSIUM CHLORIDE ORAL LIQUID 20 MEQ/15 ML PO ONE (17:02)
[2018-01-01] MEDS ORDERED: KCL 10 MEQ IVPB 10 MEQ/100 ML INFUS.BAG IVPB SCH (17:15)
[2018-01-01] MEDS ORDERED: POTASSIUM CHLORIDE IVPB ONE (18:30)
[2018-01-01] MEDS ORDERED: WATER IVPB ONE (18:30)
[2018-01-01] MEDS ORDERED: DEXTROSE 5% IVPB ONE (18:30)
[2018-01-01] MEDS: CHLORHEXIDINE GLUCONATE 4% CLEANSER FOR DECOLONIZATION TP SCH (21:06)
[2018-01-02] MEDS ORDERED: PT OWN MED DRAWER 7, Y5N ONE ×2 (01:16→09:21)
[2018-01-02] MEDS: PIPERACILLIN/TAZOB 3.375 GM 3.375 GM in DEXTROSE 5%-WATER - 50 ML IVPB SCH ×3 (01:21→17:41)
[2018-01-02] MEDS: HYDROCORTISONE SOD SUCCINATE 100 MG/2 ML VIAL IVPUSH SCH ×3 (01:21→17:42)
[2018-01-02] MEDS: FUROSEMIDE 40 MG/4 ML INJECTABLE VIAL IVPUSH SCH ×2 (06:00→14:18)
[2018-01-02] MEDS: levETIRAcetam 500 MG/5 ML INJECTION VIAL IVPB SCH ×2 (09:26→21:03)
[2018-01-02] MEDS: PANTOPRAZOLE SODIUM 40 MG VIAL IVPUSH SCH (09:26)
--- NOTE | 2018-01-02 09:49 | PN ---
Progress Note, Physician History of Present Illness: Chart reviewed. Events noted. Extubated, bradycardic, on dopamine. - Current Medication List Current Medications: Active Medications Chlorhexidine Gluconate (Hibiclens For Decolonization -) 1 applic TP HS [facility] Last Admin: 01/01/18 21:06 Dose: 1 applic Furosemide (Lasix Injection -) 40 mg IVPUSH BID@0600,1400 [facility] Last Admin: 01/02/18 06:00 Dose: 40 mg Heparin Sodium (Porcine) (Heparin -) 5,000 unit IVPUSH PRN PRN PRN Reason: BOLUS Heparin Sodium (Porcine) (Heparin -) 1,000 unit IVPUSH PRN PRN PRN Reason: BOLUS Last Admin: 01/01/18 06:43 Dose: 1,000 unit Hydrocortisone Sodium Succinate (Solu-Cortef -) 100 mg IVPUSH Q8H-IV [facility] Last Admin: 01/02/18 09:26 Dose: 100 mg Piperacillin Sod/Tazobactam (Sod 3.375 gm/ Dextrose) 50 mls @ 100 mls/hr IVPB Q8H-IV [facility] Last Admin: 01/02/18 09:26 Dose: 100 mls/hr Heparin Sodium/Dextrose (Heparin Infusion -) 25,000 units in 500 mls @ 20 mls/ hr IVPB TITR RANDAL; 1,000 UNITS/HR PRN Reason: Protocol Last Admin: 01/01/18 17:32 Dose: Not Given Dopamine HCl/Dextrose (Dopamine 400 Mg/D5w -) 400,000 mcg in 250 mls @ 15.394 mls/hr IVPB TITR RANDAL; 5 MCG/KG/MIN PRN Reason: Protocol Last Titration: 01/02/18 07:00 Dose: 4 mcg/kg/min, 12.315 mls/hr Levetiracetam (Keppra Injection -) 750 mg IVPB BID [facility] Last Admin: 01/02/18 09:26 Dose: 750 mg Pantoprazole Sodium (Protonix Iv) 40 mg IVPUSH DAILY [facility] Last Admin: 01/02/18 09:26 Dose: 40 mg - Objective Vital Signs: Vital Signs Temperature 97.6 F 01/02/18 07:00 Pulse Rate 40 L 01/02/18 09:00 Respiratory Rate 12 01/02/18 09:00 Blood Pressure 131/66 01/02/18 09:00 O2 Sat by Pulse Oximetry (%) 99 01/02/18 08:40 Labs: CBC, BMP 01/01/18 05:17 01/01/18 17:45 INR, PTT INR 0.93 (0.82-1.09) D 12/27/17 12:10 Laboratory Last Values WBC 3.8 K/mm3 (4.0-10.0) L 01/01/18 05:17 RBC 2.76 M/mm3 (4.00-5.60) L 01/01/18 05:17 Hgb 9.0 GM/dL (11.7-16.9) L 01/01/18 05:17 Hct 25.2 % (35.4-49) L 01/01/18 05:17 MCV 91.5 fl (80-96) 01/01/18 05:17 MCH 32.4 pg (25.7-33.7) 01/01/18 05:17 MCHC 35.5 g/dl (32.0-35.9) 01/01/18 05:17 RDW 14.3 % (11.9-15.9) 01/01/18 05:17 Plt Count 174 K/MM3 (134-434) 01/01/18 05:17 MPV 7.8 fl (7.5-11.1) 01/01/18 05:17 Neutrophils % 76.1 % (42.8-82.8) 01/01/18 05:17 Neutrophils % (Manual) 71.0 % (42.8-82.8) 12/28/17 05:45 Band Neutrophils % 11.0 % 12/28/17 05:45 Lymphocytes % 15.5 % (8-40) 01/01/18 05:17 Lymphocytes % (Manual) 10.0 % (8-40) 12/28/17 05:45 Monocytes % 8.2 % (3.8-10.2) 01/01/18 05:17 Monocytes % (Manual) 8 % (3.8-10.2) 12/28/17 05:45 Eosinophils % 0.1 % (0-4.5) D 01/01/18 05:17 Basophils % 0.1 % (0-2.0) 01/01/18 05:17 Hypochromia 1+ 12/28/17 05:45 Platelet Estimate Slt decrease 12/28/17 05:45 Platelet Comment No clumping noted 12/28/17 05:45 PT with INR 10.50 SEC (9.98-11.88) 12/27/17 12:10 INR 0.93 (0.82-1.09) D 12/27/17 12:10 PTT (Actin FS) 46.8 SECONDS (26.9-34.4) H 01/02/18 06:05 Anticoagulation Therapy No Result Required. 12/28/17 08:36 Puncture Site Left radial 12/28/17 08:36 ABG pH 7.39 (7.35-7.45) 12/28/17 08:36 ABG pCO2 at Pt Temp 29.3 mmHg (35-45) L 12/28/17 08:36 ABG pO2 at Pt Temp 160.0 mmHg (70-100) H* 12/28/17 08:36 ABG HCO3 17.4 meq/L (22-26) L 12/28/17 08:36 ABG O2 Sat (Measured) 99.9 % (90-98.9) H* 12/28/17 08:36 ABG O2 Content 12.3 % vol (15-22) L 12/28/17 08:36 ABG Base Excess -6.2 meq/l (-2-2) L 12/28/17 08:36 Adalberto Test Positive 12/28/17 08:36 VBG pH 7.31 (7.32-7.42) L 12/27/17 12:10 POC VBG pCO2 48.4 mmHg (38-52) 12/27/17 12:10 POC VBG pO2 71.2 mmHg (28-48) H 12/27/17 12:10 Mixed VBG HCO3 23.8 meq/L (19-25) 12/27/17 12:10 O2 Delivery Device Vent 12/28/17 08:36 Oxygen Flow Rate 40% 12/28/17 08:36 Vent Mode A/c 12/28/17 08:36 Vent Rate 16 12/28/17 08:36 Mechanical Rate Yes 12/28/17 08:36 PEEP 5.0 cmH2O 12/28/17 08:36 Pressure Support Vent 450 12/28/17 08:36 Sodium 148 mmol/L (136-145) H 01/01/18 05:17 Potassium 3.0 mmol/L (3.5-5.1) L 01/01/18 17:45 Chloride 110 mmol/L (98-107) H 01/01/18 05:17 Carbon Dioxide 30 mmol/L (21-32) 01/01/18 05:17 Anion Gap 8 (8-16) 01/01/18 05:17 BUN 33 mg/dL (7-18) H D 01/01/18 05:17 Creatinine 1.6 mg/dL (0.7-1.3) H 01/01/18 05:17 Creat Clearance w eGFR 45.62 (>60) 12/31/17 05:40 POC Glucometer 92.18217 UNITS (80-120) 12/27/17 11:35 Random Glucose 172 mg/dL (74-106) H 01/01/18 05:17 Lactic Acid 0.7 mmol/L (0.0-2.0) 12/27/17 22:26 Calcium 7.3 mg/dL (8.5-10.1) L 01/01/18 05:17 Phosphorus 3.0 mg/dL (2.5-4.9) D 01/01/18 05:17 Magnesium 1.8 mg/dL (1.8-2.4) 01/01/18 05:17 Total Bilirubin 0.2 mg/dL (0.2-1.0) D 12/31/17 05:40 AST 13 U/L (15-37) L D 12/31/17 05:40 ALT 25 U/L (12-78) 12/31/17 05:40 Alkaline Phosphatase 106 U/L (45-117) 12/31/17 05:40 Creatine Kinase 34 IU/L (39-308) L 12/30/17 05:35 Troponin I < 0.02 ng/ml (0.00-0.05) 12/30/17 05:35 Total Protein 5.2 g/dl (6.4-8.2) L 12/31/17 05:40 Albumin 2.0 g/dl (3.4-5.0) L 12/31/17 05:40 Triglycerides 143 mg/dL (35-160) 12/29/17 05:50 Lipase 117 U/L (73-393) 12/27/17 22:26 TSH 0.03 uIU/ml (0.358-3.74) L 12/27/17 15:50 Free T4 1.55 ng/dl (0.76-1.16) H 12/27/17 22:26 Cortisol PM Sample 12.8 ug/dL (2.3-11.9) H 12/27/17 22:26 Urine Color Ltyellow 12/27/17 22: Urine Appearance Slcloudy 12/27/17 22: Urine pH 6.0 (5.0-8.0) 12/27/17 22:29 Ur Specific [place] 1.013 (1.001-1.035) 12/27/17 22: Urine Protein 1+ (NEGATIVE) H 12/27/17 22: Urine Glucose (UA) Negative (NEGATIVE) 12/27/17 22: Urine Ketones Trace (NEGATIVE) H 12/27/17 22: Urine Blood 1+ (NEGATIVE) H 12/27/17 22: Urine Nitrite Positive (NEGATIVE) 12/27/17 22: Urine Bilirubin Negative (<2.0 mg/dL) 12/27/17 22: Urine Urobilinogen Negative mg/dL (0.2-1.0) 12/27/17 22:29 Ur Leukocyte Esterase 3+ (NEGATIVE) H 12/27/17 22:29 Urine WBC (Auto) 74 /hpf (3-5) 12/27/17 22:29 Urine RBC (Auto) 1 /hpf (0-3) 12/27/17 22: Hyaline Casts 1 /lpf 12/27/17 22:29 Valproic Acid 21.273 ug/ml (50-100) L 12/27/17 12:10 IgG4 38 mg/dL (2-96) 12/29/17 05:50 CMV DNA Qual PCR Negative (Negative) 12/29/17 05:50 EBV Nuclear Antigen 320.0 U/mL (0.0-17.9) H 12/29/17 05:50 Problem List - Problems (1) Septic shock Code(s): A41.9 - SEPSIS, UNSPECIFIED ORGANISM; R65.21 - SEVERE SEPSIS WITH SEPTIC SHOCK (2) Pancreatitis Code(s): K85.90 - ACUTE PANCREATITIS WITHOUT NECROSIS OR INFECTION, UNSP (3) Hypovolemic shock Code(s): R57.1 - HYPOVOLEMIC SHOCK (4) Respiratory failure, acute Code(s): J96.00 - ACUTE RESPIRATORY FAILURE, UNSP W HYPOXIA OR HYPERCAPNIA Assessment/Plan management as per ICU and cardiology teams CMP, direct bili, lipase reviewed Tg, IgG4, CMV, EBV reviewed
--- NOTE | 2018-01-02 10:06 | PN ---
Progress Note, Physician Chief Complaint: Extubated yesterday On Dopamine drip awake alert no distress - Current Medication List Current Medications: Active Medications Chlorhexidine Gluconate (Hibiclens For Decolonization -) 1 applic TP HS [facility] Last Admin: 01/01/18 21:06 Dose: 1 applic Furosemide (Lasix Injection -) 40 mg IVPUSH BID@0600,1400 [facility] Last Admin: 01/02/18 06:00 Dose: 40 mg Heparin Sodium (Porcine) (Heparin -) 5,000 unit IVPUSH PRN PRN PRN Reason: BOLUS Heparin Sodium (Porcine) (Heparin -) 1,000 unit IVPUSH PRN PRN PRN Reason: BOLUS Last Admin: 01/01/18 06:43 Dose: 1,000 unit Hydrocortisone Sodium Succinate (Solu-Cortef -) 100 mg IVPUSH Q8H-IV [facility] Last Admin: 01/02/18 09:26 Dose: 100 mg Piperacillin Sod/Tazobactam (Sod 3.375 gm/ Dextrose) 50 mls @ 100 mls/hr IVPB Q8H-IV [facility] Last Admin: 01/02/18 09:26 Dose: 100 mls/hr Heparin Sodium/Dextrose (Heparin Infusion -) 25,000 units in 500 mls @ 20 mls/ hr IVPB TITR RANDAL; 1,000 UNITS/HR PRN Reason: Protocol Last Admin: 01/01/18 17:32 Dose: Not Given Dopamine HCl/Dextrose (Dopamine 400 Mg/D5w -) 400,000 mcg in 250 mls @ 15.394 mls/hr IVPB TITR RANDAL; 5 MCG/KG/MIN PRN Reason: Protocol Last Titration: 01/02/18 07:00 Dose: 4 mcg/kg/min, 12.315 mls/hr Levetiracetam (Keppra Injection -) 750 mg IVPB BID [facility] Last Admin: 01/02/18 09:26 Dose: 750 mg Pantoprazole Sodium (Protonix Iv) 40 mg IVPUSH DAILY [facility] Last Admin: 01/02/18 09:26 Dose: 40 mg - Objective Vital Signs: Vital Signs Temperature 97.6 F 01/02/18 07:00 Pulse Rate 40 L 01/02/18 09:00 Respiratory Rate 12 01/02/18 09:00 Blood Pressure 131/66 01/02/18 09:00 O2 Sat by Pulse Oximetry (%) 99 01/02/18 08:40 Constitutional: Yes: No Distress Cardiovascular: Yes: Regular Rate and Rhythm Respiratory: Yes: Diminished Gastrointestinal: Yes: Normal Bowel Sounds, Soft. No: Tenderness Edema: No Labs: CBC, BMP 01/01/18 05:17 01/01/18 17:45 INR, PTT INR 0.93 (0.82-1.09) D 12/27/17 12:10 Problem List - Problems (1) BPH (benign prostatic hyperplasia) Code(s): N40.0 - BENIGN PROSTATIC HYPERPLASIA WITHOUT LOWER URINRY TRACT SYMP (2) Hypovolemic shock Code(s): R57.1 - HYPOVOLEMIC SHOCK (3) Respiratory failure, acute Code(s): J96.00 - ACUTE RESPIRATORY FAILURE, UNSP W HYPOXIA OR HYPERCAPNIA (4) Seizure Code(s): R56.9 - UNSPECIFIED CONVULSIONS (5) Septic shock Code(s): A41.9 - SEPSIS, UNSPECIFIED ORGANISM; R65.21 - SEVERE SEPSIS WITH SEPTIC SHOCK (6) UTI (urinary tract infection) Code(s): N39.0 - URINARY TRACT INFECTION, SITE NOT SPECIFIED Assessment/Plan PLAN Extubated swallow eval replace potassium on Dopamine drip continue with iv antibiotics
--- NOTE | 2018-01-02 10:09 | CONSULT ---
Admitting History and Physical - Primary Care Physician PCP: Oh Lanza - Admission History of Present Illness: Per H/P: 77 year old male with a history of hypothyroidism, dementia, BPH, seizure disorder, depression, urethral stricture, hernia repair came from [facility] s/p witnessed seizure, lethargy, and unresponsiveness. According to patient's son, patient only started having seizures when he moved into [facility] and has had 2-3 total, the last one being 6 months ago. Patient has been on Depakote in the nursing facility. Patient's son reports that he may have been complaining of vague abdominal pain for the past 3 weeks. At baseline , patient is mildly responsive, but does not communicate well or respond to simple commands. In the ED, patient was found to be hypothermic to 91 degrees, bradycardic, and hypotensive. His depakote level was found to be low. Patient was worked up for sepsis. His WBCs were low at 2.6. he was started on vanc/ zosyn and given 6 liters of fluids. His abdominal CT showed evidence of pancreatitis and bladder outlet obstruction. Mr. Lu is a 77 yo male w/ pmh of hypothyroidism, dementia, BPH, seizure disorder, depression, urethral stricture who presented in acute septic shock to ER 11/02 UTI; Intubated 12/28- Pt extubated successfully 01/01. In NH, pt gets Puree diet with Jerome thick liquids and TwoCal PO supplement. Chart reviewed. Pt examined. This is my first consult with this pt. 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 Does not maintain eye contact. High distractibilty.) Ability to Follow Directions: Poor Head/Neck Control: Needs Assist - Hearing Hearing: Functional Speech Evaluation - Communication Primary Language: ROMANSH Oral Expression Ability: Yes: Moderate Impairment, Severe Impairment ( Occasional social speech. Begins to speak but unable to complete thoughts. My name is ...) - Speech Production Able to Make Needs Known: Yes: Severely Impaired Intelligibility: Yes: Mildly Impaired, Moderately Impaired - Speech Characteristics Voice Loudness: Mildly Soft/Quiet Voice Pitch: Yes: Normal Voice Phonatory-based Quality: Yes: Normal Speech Pattern: Impaired Speech Clarity: < 50% Nasal Resonance: Normal Articulation: Yes: Precise Voice, Other Observations: Yes: Progressively Weak Voice - Language/Auditory Comprehension Observation: Able to respond to yes/no queries: No, Comprehends Conversational Speech: Yes (simple social speech), Benefits from Slow Speech: Yes, Benefits from Repetiton: Yes, Benefits from Increased Volume of Speech: Yes (suspected benefit) - Language/Verbal Expression Able to Respond to Simple Queries: Yes: Severely Impaired Able to Communicate Wants and Needs: Yes: Severely Impaired Functional Communication Status: Yes: Severely Impaired - Memory/Perception terminal gauger supervisor Memory: Yes: Severely Impaired Short Term Memory: Yes: Severely Impaired - Swallow Evaluation/Bedside Assessment Current Nutritional Intake: NPO Oral Secretions: Yes: WFL Dentition: Yes: Adequate Facial Symmetry at Rest: Symmetrical Lingual Movement: Symmetric Lingual Movement Characteristics: Normal Laryngeal Movement: Reduced Excursion, Labored,delay initiation, Reduced Velocity Bolus Size: Small Labial Seal: WFL Oral Prep Time: Increased Timing of Swallow: Delayed Coughing/Throat Clear: No Change in Voice: No Recommendations - Speech Evaluation, Impression/Plan Impression: Impaired attention span with high distractibilty, adversely affecting timely initiation of swallow refle. Pt did accept puree with lower lip tapped gently with spoon. Swallow mildly delayed in onset, with fair vom/ laryngeal excursion. - Dysphagia Impressions/Plan Swallowing Skills: Impaired Dysphagia Impressions: Mild Impairment, Moderate Impairment, Risk of Aspiration (due to disteractibility and delayed swallow onset.), Suspect Aspiration ( on thin liquids.) *Silent aspiration: cannot be R/O at bedside Dysphagia Treatment Plan: Small Bites, Chin Tuck/Down, 1/2 tsp. at a time, Elevate HOB during feed, Other (engage pt and attempt to increase pt's awareness of spoon to mouth. Verbally cue pt to swallow. Palpate larynx for reflex before next bite/sip.) Recommendations: Modified Barium Swallow (if cough,congestion, fever.) - Recommendations Diet Consistency: Dysphagia Pureed Medication Administration: Crushed with applesauce Liquids: Jerome Thick (on a tsp) Supplement: Magic Cup, Ensure Pudding
[2018-01-02 10:43] LABS: HEMATOCRIT 28.3 % (35.4-49); HEMOGLOBIN 9.9 GM/dL (11.7-16.9); MCH 31.8 pg (25.7-33.7); MEAN CELL VOLUME 90.9 fl (80-96); MEAN PLT VOLUME 7.1 fl (7.5-11.1); PLATELET COUNT 179 K/MM3 (134-434); RBC 3.11 M/mm3 (4.00-5.60); RDW 13.9 % (11.9-15.9); WHITE BLOOD COUNT 4.7 K/mm3 (4.0-10.0)
--- NOTE | 2018-01-02 11:07 | PN ---
Physical Exam: SUBJECTIVE: Patient seen and examined. patient educated yesterday. doing good. maintaining saturation on 2L NC, spo2 100%. still on dopamine; tried to taper but patient become more fabrice, so again increased it to 4. Discussed with cardio: advised to wait for taper. patient also has mild haematuria but haemoglobin is stable. OBJECTIVE: Vital Signs Period Temp Pulse Resp BP Sys/Hampton Pulse Ox Last 24 Hr 97.6 F-98.7 F 37-46 11-25 86-150/52-79 96-99 GENERAL: The patient is awake, HEAD: Normal with no signs of trauma. ENT:dry mucous membranes. NECK: Trachea midline, full range of motion, supple. LUNGS: Breath sounds equal, clear to auscultation bilaterally, no wheezes, no crackles, no accessory muscle use. HEART: s1s2 normal, bradycardia ABDOMEN: Soft, nontender, nondistended, normoactive bowel sounds, no guarding, no rebound, alva cath in situ EXTREMITIES: warm, well-perfused, no edema. . SKIN: Warm, dry, Laboratory Results - last 24 hr 12/29/17 01/01/18 01/01/18 05:50 13:35 17:45 WBC RBC Hgb Hct MCV MCH MCHC RDW Plt Count MPV Neutrophils % Lymphocytes % PTT (Actin FS) 77.3 H D Potassium 3.0 L CMV DNA Qual PCR Negative 01/01/18 01/02/18 01/02/18 19:55 06:05 09:42 WBC 4.7 RBC 3.11 L Hgb 9.9 L Hct 28.3 L MCV 90.9 MCH 31.8 MCHC 35.0 RDW 13.9 Plt Count 179 MPV 7.1 L Neutrophils % No Result Required. Lymphocytes % No Result Required. PTT (Actin FS) 55.0 H 46.8 H Potassium CMV DNA Qual PCR Active Medications Generic Name Dose Route Start Last Admin Trade Name Freq PRN Reason Stop Dose Admin Chlorhexidine Gluconate 1 applic 12/27/17 22:00 01/01/18 21:06 Hibiclens For Decolonization - TP 1 applic HS [facility] Administration Furosemide 40 mg 12/30/17 10:30 01/02/18 06:00 Lasix Injection - IVPUSH 40 mg BID@0600,1400 [facility] Administration Heparin Sodium (Porcine) 5,000 unit 12/29/17 14:43 Heparin - IVPUSH PRN PRN BOLUS Heparin Sodium (Porcine) 1,000 unit 12/29/17 14:43 01/01/18 06:43 Heparin - IVPUSH 1,000 unit PRN PRN Administration BOLUS Hydrocortisone Sodium Succinate 100 mg 12/29/17 10:30 01/02/18 09:26 Solu-Cortef - IVPUSH 100 mg Q8H-IV [facility] Administration Piperacillin Sod/Tazobactam 50 mls @ 100 mls/hr 12/28/17 10:45 01/02/18 09:26 Sod 3.375 gm/ Dextrose IVPB 100 mls/hr Q8H-IV [facility] Administration Heparin Sodium/Dextrose 25,000 units in 500 mls @ 20 mls/hr 12/29/17 14:45 17:32 Heparin Infusion - IVPB Not Given TITR RANDAL Protocol 1,000 UNITS/HR Dopamine HCl/Dextrose 400,000 mcg in 250 mls @ 15.394 mls/hr 12/30/17 18:15 01/02/18 07:00 Dopamine 400 Mg/D5w - IVPB 4 mcg/kg/min TITR RANDAL 12.315 mls/hr Protocol Titration 5 MCG/KG/MIN Levetiracetam 750 mg 12/27/17 22:00 01/02/18 09:26 Keppra Injection - IVPB 750 mg BID [facility] Administration Pantoprazole Sodium 40 mg 12/29/17 10:00 01/02/18 09:26 Protonix Iv IVPUSH 40 mg DAILY [facility] Administration ASSESSMENT/PLAN: Mr. Lu is a 77 yo male w/ pmh of hypothyroidism, dementia, BPH, seizure disorder, depression, urethral stricture who presented in acute septic shock to ER 2/2 UTI; extubated successfully after RSBI noted to be 15/450 (33). Patient currently saturating well on venturi mask at 40% seizure - continue Keppra 750 BID bradycardia - on dopamin 4, gets fabrice when taper - maintaining a blood pressure. - continue cardiac monitoring. - defibrilator and atropine bed side. - cardiology on case. UTI - ID following - Zosyn day 6 - improving - uc no growth Chronic pancreatitis - abdomen soft, BS + - EBV antigen positive. - GI on case. - monitor vitals - monitor intake and output PPX - Heparin gtt - protonix FEN - Fluids as tolerated - Replete electrolytes PRN - dysphagia diet. Disposition - Continue ICU care Visit type - Emergency Visit Emergency Visit: Yes ED Registration Date: 12/27/17 Care time: The patient presented to the Emergency Department on the above date and was hospitalized for further evaluation of their emergent condition. - New Patient This patient is new to me today: No - Critical Care Critical Care patient: Yes Total Critical Care Time (in minutes): 45 Critical Care Statement: The care of this patient involved high complexity decision making to prevent further life threatening deterioration of the patient 's condition and/or to evaluate & treat vital organ system(s) failure or risk of failure.
[2018-01-02 11:10] LABS: ALBUMIN 2.4 g/dl (3.4-5.0); ANION GAP 3 (8-16); BILIRUBIN,TOTAL 0.4 mg/dL (0.2-1.0); BLOOD UREA NITROGEN 30 mg/dL (7-18); CALCIUM 7.9 mg/dL (8.5-10.1); CHLORIDE 103 mmol/L (98-107); CO2 37 mmol/L (21-32); CREATININE 1.4 mg/dL (0.7-1.3); GLUCOSE,RANDOM 104 mg/dL (74-106); SGOT/AST 32 U/L (15-37); SODIUM 143 mmol/L (136-145); TOT PROT 5.9 g/dl (6.4-8.2)
[2018-01-02 11:40] LABS: ALK PHOS 118 U/L (45-117); SGPT/ALT 47 U/L (12-78)
[2018-01-02 11:45] LABS: ANISOCYTOSIS 0; MACROCYTOSIS 0; PLATELET ESTIMATE NORMAL
--- NOTE | 2018-01-02 11:46 | PN ---
Teaching Attending Note Name of Resident: Moose Sweeney ATTENDING PHYSICIAN STATEMENT I saw and evaluated the patient. I reviewed the resident's note and discussed the case with the resident. I agree with the resident's findings and plan as documented. SUBJECTIVE: Pt seen and examined in the ICU. Extubated on nasal cannula. Remains bradycardic despite dopamine gtt but with good BP. OBJECTIVE: Last Vital Signs Temp Pulse Resp BP Pulse Ox 97.6 F 41 L 11 L 115/61 99 01/02/18 07:00 01/02/18 10:00 01/02/18 10:00 01/02/18 10:00 01/02/18 08:40 Intake & Output 12/30/17 12/31/17 01/01/18 01/02/18 23:59 23:59 23:59 23:59 Intake Total 1509 1913 1951.8 453.6 Output Total 5900 5800 3726 2600 Balance -4391 -3887 -1774.2 -2146.4 Weight 82.1 kg 77.337 kg 75.523 kg 72.938 kg Gen: NAD at rest Heart: bradycardic, regular Lung: decreased breath sounds at the bases Abd: soft, nontender Ext: no edema CBC, BMP 01/02/18 09:42 Active Medications Chlorhexidine Gluconate (Hibiclens For Decolonization -) 1 applic TP HS [facility] Last Admin: 01/01/18 21:06 Dose: 1 applic Furosemide (Lasix Injection -) 40 mg IVPUSH BID@0600,1400 [facility] Last Admin: 01/02/18 06:00 Dose: 40 mg Heparin Sodium (Porcine) (Heparin -) 5,000 unit SQ TID [facility] Hydrocortisone Sodium Succinate (Solu-Cortef -) 100 mg IVPUSH Q8H-IV [facility] Last Admin: 01/02/18 09:26 Dose: 100 mg Piperacillin Sod/Tazobactam (Sod 3.375 gm/ Dextrose) 50 mls @ 100 mls/hr IVPB Q8H-IV [facility] Last Admin: 01/02/18 09:26 Dose: 100 mls/hr Dopamine HCl/Dextrose (Dopamine 400 Mg/D5w -) 400,000 mcg in 250 mls @ 15.394 mls/hr IVPB TITR RANDAL; 5 MCG/KG/MIN PRN Reason: Protocol Last Titration: 01/02/18 07:00 Dose: 4 mcg/kg/min, 12.315 mls/hr Levetiracetam (Keppra Injection -) 750 mg IVPB BID [facility] OF [facility] Last Admin: 01/02/18 09:26 Dose: 750 mg Pantoprazole Sodium (Protonix Iv) 40 mg IVPUSH DAILY [facility] Last Admin: 01/02/18 09:26 Dose: 40 mg ASSESSMENT AND PLAN: s/p Acute Respiratory Failure Seizure Episode Seizure Disorder Hypovolemic/Septic Shock UTI Pancytopenia Hypothyroidism BPH Dementia Bradycardia Atrial fibrillation - continue dopamine gtt - hold anticoagulation due to hematuria - taper empiric steroids - complete empiric antibiotics - monitor CBC - O2 to keep SPo2 >90% - PO as tolerated - DVT/GI prophylaxis - continue ICU monitoring critical care time spent in reviewing chart, evaluating patient and formulating plan 35 min Problem List - Problems (1) Seizure Code(s): R56.9 - UNSPECIFIED CONVULSIONS (2) Hypovolemic shock Code(s): R57.1 - HYPOVOLEMIC SHOCK (3) BPH (benign prostatic hyperplasia) Code(s): N40.0 - BENIGN PROSTATIC HYPERPLASIA WITHOUT LOWER URINRY TRACT SYMP (4) Hypothyroid Code(s): E03.9 - HYPOTHYROIDISM, UNSPECIFIED (5) Dementia Code(s): F03.90 - UNSPECIFIED DEMENTIA WITHOUT BEHAVIORAL DISTURBANCE
[2018-01-02 11:58] LABS: POTASSIUM 2.6 mmol/L (3.5-5.1)
[2018-01-02] MEDS ORDERED: POTASSIUM CHLORIDE ORAL LIQUID 20 MEQ/15 ML PO ONE ×5 (11:58→23:00)
[2018-01-02] MEDS ORDERED: MAGNESIUM SULF 50% (8.12 MEQ/2 ML-1 GM VIAL) IVPB ONE (12:15)
[2018-01-02 12:55] LABS: PHOSPHOROUS 3.9 mg/dL (2.5-4.9)
[2018-01-02] MEDS: HEPARIN NA (PORCINE) 5,000 UNITS/ML 1ML VIAL SQ SCH ×2 (14:17→21:03)
--- NOTE | 2018-01-02 15:18 | PN ---
Progress Note (short form) - Note Progress Note: extubated remains on dopamine Vital Signs Period Temp Pulse Resp BP Sys/Hampton Pulse Ox Last 24 Hr 96.9 F-98.7 F 37-44 11-25 86-150/52-78 99-100 cor-rrr lungs clear abd soft,nt ext trace edema alva- hematuria CBC, BMP 01/02/18 09:42 01/02/18 09:42 Microbiology 12/27/17 12:10 Blood - Peripheral Venous Blood Culture - Final NO GROWTH AFTER 5 DAYS INCUBATION 12/27/17 12:10 Blood - Peripheral Venous Blood Culture - Final NO GROWTH AFTER 5 DAYS INCUBATION 12/27/17 22:31 Urine - Urine - Catheterized Urine Culture - Final NO GROWTH OBTAINED a/p sepsis- most likely due to uti, urine culture sent after antibiotics were given seizures-known seizure disorder urethral stricture- difficulty placing alva catheter extubated continue zosyn as ordered-day #6 of 7 Problem List - Problems (1) Sepsis Code(s): A41.9 - SEPSIS, UNSPECIFIED ORGANISM (2) UTI (urinary tract infection) Code(s): N39.0 - URINARY TRACT INFECTION, SITE NOT SPECIFIED (3) Seizure Code(s): R56.9 - UNSPECIFIED CONVULSIONS (4) Anemia Code(s): D64.9 - ANEMIA, UNSPECIFIED (5) Respiratory failure, acute Code(s): J96.00 - ACUTE RESPIRATORY FAILURE, UNSP W HYPOXIA OR HYPERCAPNIA
--- NOTE | 2018-01-02 15:21 | PN ---
Progress Note, Physician Chief Complaint: extubated, nonverbal, eyes open tele sbrady, had fabrice to 30's with junctional escape. highest HR 60 BPM. History of Present Illness: The patient is a 77-year-old man with dementia, hypertension, hypothyroidism, BPH, seizure disorder, now admitted with seizures and hypothermia. The patient was intubated on pressors in the ICU. Has significant pulmonary congestion. Extubated 01/01/18. Dopamine decreased with resulting severe sinus bradycardia to 30s with junctional escape beats. Increased back to 5 mcg, now tapered to 4 mcg. echo 12/31/17 nlef mild TR - Current Medication List Current Medications: Active Medications Chlorhexidine Gluconate (Hibiclens For Decolonization -) 1 applic TP HS [facility] Last Admin: 01/01/18 21:06 Dose: 1 applic Furosemide (Lasix Injection -) 40 mg IVPUSH BID@0600,1400 [facility] Last Admin: 01/02/18 14:18 Dose: 40 mg Heparin Sodium (Porcine) (Heparin -) 5,000 unit SQ TID [facility] Last Admin: 01/02/18 14:17 Dose: 5,000 unit Hydrocortisone Sodium Succinate (Solu-Cortef -) 100 mg IVPUSH Q8H-IV [facility] Last Admin: 01/02/18 09:26 Dose: 100 mg Dopamine HCl/Dextrose (Dopamine 400 Mg/D5w -) 400,000 mcg in 250 mls @ 15.394 mls/hr IVPB TITR [facility]; 5 MCG/KG/MIN PRN Reason: Protocol Last Titration: 01/02/18 07:00 Dose: 4 mcg/kg/min, 12.315 mls/hr Piperacillin Sod/Tazobactam (Sod 3.375 gm/ Dextrose) 50 mls @ 100 mls/hr IVPB Q8H-IV [facility] Stop: 01/04/18 10:29 Levetiracetam (Keppra Injection -) 750 mg IVPB BID [facility] Last Admin: 01/02/18 09:26 Dose: 750 mg Pantoprazole Sodium (Protonix Iv) 40 mg IVPUSH DAILY [facility] Last Admin: 01/02/18 09:26 Dose: 40 mg Potassium Chloride (Potassium Chloride Oral Liquid) 40 meq PO ONCE ONE Stop: 01/02/18 16:01 - Objective Vital Signs: Vital Signs Temperature 96.9 F L 01/02/18 14:00 Pulse Rate 38 L 04/04/18 14:00 Respiratory Rate 13 01/02/18 14:00 Blood Pressure 124/65 01/02/18 14:00 O2 Sat by Pulse Oximetry (%) 100 01/02/18 12:45 Constitutional: Yes: No Distress, Calm Eyes: Yes: Conjunctiva Clear, EOM Intact HENT: Yes: Normocephalic Neck: Yes: Trachea Midline Cardiovascular: Yes: Regular Rate and Rhythm, Bradycardia Respiratory: Yes: CTA Bilaterally Gastrointestinal: Yes: Normal Bowel Sounds, Soft Edema: Yes Peripheral Pulses WNL: Yes Labs: CBC, BMP 01/02/18 09:42 01/02/18 09:42 INR, PTT INR 0.93 (0.82-1.09) D 12/27/17 12:10 Problem List - Problems (1) PAF (paroxysmal atrial fibrillation) Assessment/Plan: He is now in sinus rhythm. No significant abnormalities on echo. DC heparin for now. He has tachy-fabrice syndrome. Poor AC candidate. Given his risk of recurrent infections, poor mental and functional status I would like to manage conservatively. He is a poor candidate for Pacemaker implantation. Avoid any AV liliana blocking agents. Taper dopamine slowly, to allow sinus node to recover. Will follow. Code(s): I48.0 - PAROXYSMAL ATRIAL FIBRILLATION
--- NOTE | 2018-01-02 16:23 | PN ---
Progress Note (short form) - Note Progress Note: Reassessment of lung exam reveals minimal rales at lung bases and pt has been saturating 98% on nasal cannula. Lasix originally started due to pulmonary edema which seems to have resolved --Will discontinue Lasix --Pt already received morning dose and is diuresing 3.6L in last 24hr period --Potassium replacement has been ongoing; repeat K level at 2000h Armond Harvey, DO - IM PGY-1
[2018-01-02] MEDS ORDERED: PIPERACILLIN/TAZOBACTAM 3.375 GM VIAL IVPB ONE (17:37)
[2018-01-02] MEDS ORDERED: DEXTROSE 5%-WATER - 50 ML IVPB ONE (17:38)
[2018-01-02] MEDS: CHLORHEXIDINE GLUCONATE 4% CLEANSER FOR DECOLONIZATION TP SCH (21:03)
[2018-01-02] MEDS: DOPAMINE 400 MG/D5W - 400,000 MCG/250 ML INFUS.BAG IVPB SCH (21:04)
[2018-01-02 21:16] LABS: MAGNESIUM 2.2 mg/dL (1.8-2.4); POTASSIUM 3.2 mmol/L (3.5-5.1)
[2018-01-02] MEDS ORDERED: POTASSIUM CHLORIDE TABS 20 MEQ TABLET.ER (FP) PO ONE (22:01)
[2018-01-03] MEDS ORDERED: DEXTROSE 5%-WATER - 50 ML IVPB ONE ×3 (01:05→17:48)
[2018-01-03] MEDS ORDERED: PIPERACILLIN/TAZOBACTAM 3.375 GM VIAL IVPB ONE ×3 (01:05→17:48)
[2018-01-03] MEDS: PIPERACILLIN/TAZOB 3.375 GM 3.375 GM in DEXTROSE 5%-WATER - 50 ML IVPB SCH ×3 (01:07→17:49)
[2018-01-03] MEDS: HYDROCORTISONE SOD SUCCINATE 100 MG/2 ML VIAL IVPUSH SCH ×3 (01:08→17:49)
[2018-01-03] MEDS: HEPARIN NA (PORCINE) 5,000 UNITS/ML 1ML VIAL SQ SCH ×3 (06:23→21:33)
[2018-01-03 06:35] LABS: HEMATOCRIT 27.9 % (35.4-49); HEMOGLOBIN 9.8 GM/dL (11.7-16.9); LYMPH % 15.6 % (8-40); MEAN CELL VOLUME 91.6 fl (80-96); MEAN PLT VOLUME 7.3 fl (7.5-11.1); MONO % 6.2 % (3.8-10.2); NEUT % 78.2 % (42.8-82.8); PLATELET COUNT 202 K/MM3 (134-434); RBC 3.05 M/mm3 (4.00-5.60); RDW 14.1 % (11.9-15.9); WHITE BLOOD COUNT 4.6 K/mm3 (4.0-10.0)
--- NOTE | 2018-01-03 06:44 | PN ---
Progress Note, Physician Chief Complaint: ID Comfortable nonverbal Zosyn day 7 therapy Hydocortisone - Current Medication List Current Medications: Active Medications Chlorhexidine Gluconate (Hibiclens For Decolonization -) 1 applic TP HS [facility] Last Admin: 01/02/18 21:03 Dose: 1 applic Heparin Sodium (Porcine) (Heparin -) 5,000 unit SQ TID [facility] Last Admin: 01/03/18 06:23 Dose: 5,000 unit Hydrocortisone Sodium Succinate (Solu-Cortef -) 100 mg IVPUSH Q8H-IV [facility] Last Admin: 01/03/18 01:08 Dose: 100 mg Dopamine HCl/Dextrose (Dopamine 400 Mg/D5w -) 400,000 mcg in 250 mls @ 15.394 mls/hr IVPB TITR [facility]; 5 MCG/KG/MIN PRN Reason: Protocol Last Admin: 01/02/18 21:04 Dose: 3.5 mcg/kg/min, 10.776 mls/hr Piperacillin Sod/Tazobactam (Sod 3.375 gm/ Dextrose) 50 mls @ 100 mls/hr IVPB Q8H-IV [facility] Stop: 01/04/18 10:29 Last Admin: 01/03/18 01:07 Dose: 100 mls/hr Levetiracetam (Keppra Injection -) 750 mg IVPB BID [facility] Last Admin: 01/02/18 21:03 Dose: 750 mg Pantoprazole Sodium (Protonix Iv) 40 mg IVPUSH DAILY [facility] Last Admin: 01/02/18 09:26 Dose: 40 mg - Objective Vital Signs: Vital Signs Temperature 98 F 01/03/18 06:00 Pulse Rate 37 L 01/03/18 06:00 Respiratory Rate 12 01/03/18 06:00 Blood Pressure 137/64 01/03/18 06:00 O2 Sat by Pulse Oximetry (%) 100 01/02/18 20:41 Constitutional: Yes: No Distress HENT: Yes: WNL, Atraumatic Neck: Yes: WNL, Supple Cardiovascular: Yes: Bradycardia, S1, S2 Respiratory: Yes: WNL, Regular, CTA Bilaterally, Diminished Gastrointestinal: Yes: WNL, Normal Bowel Sounds, Soft, Tenderness. No: Tenderness, Rebound Extremities: No: Cold, Cool, Cyanosis Edema: No Labs: INR, PTT INR 0.93 (0.82-1.09) D 12/27/17 12:10 Assessment/Plan Microbiology 12/27/17 22:31 Urine - Urine - Catheterized Urine Culture - Final NO GROWTH OBTAINED 12/27/17 12:10 Blood - Peripheral Venous Blood Culture - Final NO GROWTH AFTER 5 DAYS INCUBATION 12/27/17 12:10 Blood - Peripheral Venous Blood Culture - Final NO GROWTH AFTER 5 DAYS INCUBATION Laboratory Tests 01/02/18 01/02/18 01/02/18 09:42 09:42 20:05 WBC 4.7 Hgb 9.9 L Hct 28.3 L Plt Count 179 Potassium 3.2 L D BUN 30 H Creatinine 1.4 H 01/03/18 01/03/18 06:15 06:15 WBC Pending Hgb Pending Hct Pending Plt Count Pending Potassium BUN Pending Creatinine Pending Assessment Completing antibiotic for presume urosepsis. While I was concerned about the pancytopenia ? myeloproliferative this seems to have improved and may have been secondary to sepsis. Cultures were no growth He has Tachy fabrice syndrome per cardiology. NOt sure indication for steroids parenterally now Plan STOP antibiotics tonight ( 7 days) and consider stop steroids or taper? Jimmy SHIELDS
[2018-01-03 07:17] LABS: ANION GAP 10 (8-16); BLOOD UREA NITROGEN 29 mg/dL (7-18); CALCIUM 8.3 mg/dL (8.5-10.1); CHLORIDE 105 mmol/L (98-107); CO2 34 mmol/L (21-32); GLUCOSE,RANDOM 119 mg/dL (74-106); MAGNESIUM 2.3 mg/dL (1.8-2.4); POTASSIUM 3.3 mmol/L (3.5-5.1); SODIUM 149 mmol/L (136-145)
[2018-01-03 07:19] LABS: CREATININE 1.5 mg/dL (0.7-1.3); PHOSPHOROUS 3.2 mg/dL (2.5-4.9)
[2018-01-03] MEDS: levETIRAcetam 500 MG/5 ML INJECTION VIAL IVPB SCH ×2 (09:18→21:34)
[2018-01-03] MEDS: PANTOPRAZOLE SODIUM 40 MG VIAL IVPUSH SCH (09:19)
--- NOTE | 2018-01-03 10:44 | PN ---
Progress Note, Physician Chief Complaint: On Dopamine drip awake alert no distress ate his food without any difficulty - Current Medication List Current Medications: Active Medications Chlorhexidine Gluconate (Hibiclens For Decolonization -) 1 applic TP HS [facility] Last Admin: 01/02/18 21:03 Dose: 1 applic Heparin Sodium (Porcine) (Heparin -) 5,000 unit SQ TID [facility] Last Admin: 01/03/18 06:23 Dose: 5,000 unit Hydrocortisone Sodium Succinate (Solu-Cortef -) 100 mg IVPUSH Q8H-IV [facility] Last Admin: 01/03/18 09:19 Dose: 100 mg Dopamine HCl/Dextrose (Dopamine 400 Mg/D5w -) 400,000 mcg in 250 mls @ 15.394 mls/hr IVPB TITR RANDAL; 5 MCG/KG/MIN PRN Reason: Protocol Last Admin: 01/02/18 21:04 Dose: 3.5 mcg/kg/min, 10.776 mls/hr Piperacillin Sod/Tazobactam (Sod 3.375 gm/ Dextrose) 50 mls @ 100 mls/hr IVPB Q8H-IV RANDAL Stop: 01/03/18 19:00 Last Admin: 01/03/18 09:18 Dose: 100 mls/hr Levetiracetam (Keppra Injection -) 750 mg IVPB BID [facility] Last Admin: 01/03/18 09:18 Dose: 750 mg Pantoprazole Sodium (Protonix Iv) 40 mg IVPUSH DAILY [facility] Last Admin: 01/03/18 09:19 Dose: 40 mg - Objective Vital Signs: Vital Signs Temperature 97.9 F 01/03/18 10:00 Pulse Rate 53 L 01/03/18 10:00 Respiratory Rate 12 01/03/18 10:00 Blood Pressure 107/57 01/03/18 10:00 O2 Sat by Pulse Oximetry (%) 100 01/03/18 09:00 Constitutional: Yes: No Distress, Calm Cardiovascular: Yes: Regular Rate and Rhythm Respiratory: Yes: Diminished Gastrointestinal: Yes: Normal Bowel Sounds, Soft. No: Tenderness Edema: No Labs: CBC, BMP 01/03/18 06:15 01/03/18 06:15 INR, PTT INR 0.93 (0.82-1.09) D 12/27/17 12:10 Problem List - Problems (1) BPH (benign prostatic hyperplasia) Code(s): N40.0 - BENIGN PROSTATIC HYPERPLASIA WITHOUT LOWER URINRY TRACT SYMP (2) Hypovolemic shock Code(s): R57.1 - HYPOVOLEMIC SHOCK (3) Respiratory failure, acute Code(s): J96.00 - ACUTE RESPIRATORY FAILURE, UNSP W HYPOXIA OR HYPERCAPNIA (4) Seizure Code(s): R56.9 - UNSPECIFIED CONVULSIONS (5) Septic shock Code(s): A41.9 - SEPSIS, UNSPECIFIED ORGANISM; R65.21 - SEVERE SEPSIS WITH SEPTIC SHOCK (6) UTI (urinary tract infection) Code(s): N39.0 - URINARY TRACT INFECTION, SITE NOT SPECIFIED Assessment/Plan PLAN pt eating well all cultures negative ID follow up noted replace potassium on Dopamine drip dc iv antibiotics in PM taper Steroid
--- NOTE | 2018-01-03 11:04 | PN ---
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 Continue compensatory swallowing strategies. Monitor PO tolerance.
[2018-01-03] MEDS ORDERED: SODIUM CHLORIDE 250 ML IV STA (11:33)
--- NOTE | 2018-01-03 11:59 | PN ---
Teaching Attending Note Name of Resident: Nicolás Haskins ATTENDING PHYSICIAN STATEMENT I saw and evaluated the patient. I reviewed the resident's note and discussed the case with the resident. I agree with the resident's findings and plan as documented. SUBJECTIVE: Patient seen and examined in the ICU. Remains extubated on NC O2. Remains on Dopamine for Bradycardia and Hypotension. Lethargic but responsive. Intake & Output 12/31/17 01/01/18 01/02/18 01/03/18 23:59 23:59 23:59 23:59 Intake Total 1913 1951.8 793.6 272.4 Output Total 5800 3726 4150 700 Balance -3887 -1774.2 -3356.4 -427.6 Weight 170 lb 8 oz 166 lb 8 oz 160 lb 12.8 oz 153 lb 7.068 oz Last Vital Signs Temp Pulse Resp BP Pulse Ox 97.9 F 53 L 12 107/57 100 01/03/18 10:00 01/03/18 10:00 01/03/18 10:00 01/03/18 10:00 01/03/18 09:00 Active Medications Chlorhexidine Gluconate (Hibiclens For Decolonization -) 1 applic TP HS [facility] Last Admin: 01/02/18 21:03 Dose: 1 applic Heparin Sodium (Porcine) (Heparin -) 5,000 unit SQ TID [facility] Last Admin: 01/03/18 06:23 Dose: 5,000 unit Hydrocortisone Sodium Succinate (Solu-Cortef -) 100 mg IVPUSH Q8H-IV [facility] Last Admin: 01/03/18 09:19 Dose: 100 mg Dopamine HCl/Dextrose (Dopamine 400 Mg/D5w -) 400,000 mcg in 250 mls @ 15.394 mls/hr IVPB TITR [facility]ANDAL; 5 MCG/KG/MIN PRN Reason: Protocol Last Admin: 01/02/18 21:04 Dose: 3.5 mcg/kg/min, 10.776 mls/hr Piperacillin Sod/Tazobactam (Sod 3.375 gm/ Dextrose) 50 mls @ 100 mls/hr IVPB Q8H-IV RANDAL Stop: 01/03/18 19:00 Last Admin: 01/03/18 09:18 Dose: 100 mls/hr Sodium Chloride (Normal Saline -) 1,000 mls @ 42 mls/hr IV ASDIR [facility] Potassium Chloride (Potassium Chloride 10 Meq Premix Ivpb -) 10 meq in 100 mls @ 100 mls/hr IVPB Q60M [facility] Stop: 01/03/18 14:44 Levetiracetam (Keppra Injection -) 750 mg IVPB BID [facility] Last Admin: 01/03/18 09:18 Dose: 750 mg Pantoprazole Sodium (Protonix Iv) 40 mg IVPUSH DAILY [facility] Last Admin: 01/03/18 09:19 Dose: 40 mg Gen: Extubated, lethargic, arousable, NAD Heart: RRR Lung: decreased breath sounds at the bases Abd: soft, nontender Ext: + edema Laboratory Results - last 24 hr 01/02/18 01/02/18 01/02/18 09:42 09:42 20:05 WBC RBC Hgb Hct MCV MCH MCHC RDW Plt Count MPV Neutrophils % Neutrophils % (Manual) 61.9 Band Neutrophils % 0.0 Lymphocytes % Lymphocytes % (Manual) 30.9 D Monocytes % Monocytes % (Manual) 7 Eosinophils % Eosinophils % (Manual) 0.0 Basophils % Basophils % (Manual) 0.0 Myelocytes % (Man) 0 Promyelocytes % (Man) 0 Blast Cells % (Manual) 0 Nucleated RBC % 1 H Metamyelocytes 0 Hypochromia 0 Platelet Estimate Normal Polychromasia 0 Poikilocytosis 0 Anisocytosis 0 Microcytosis 0 Macrocytosis 0 PTT (Actin FS) Sodium Potassium 3.2 L D Chloride Carbon Dioxide Anion Gap BUN Creatinine Random Glucose Calcium Phosphorus 3.9 D Magnesium 2.0 2.2 01/03/18 01/03/18 01/03/18 06:15 06:15 06:15 WBC 4.6 RBC 3.05 L Hgb 9.8 L Hct 27.9 L MCV 91.6 MCH 32.0 MCHC 35.0 RDW 14.1 Plt Count 202 MPV 7.3 L Neutrophils % 78.2 Neutrophils % (Manual) Band Neutrophils % Lymphocytes % 15.6 Lymphocytes % (Manual) Monocytes % 6.2 Monocytes % (Manual) Eosinophils % 0.0 D Eosinophils % (Manual) Basophils % 0.0 Basophils % (Manual) Myelocytes % (Man) Promyelocytes % (Man) Blast Cells % (Manual) Nucleated RBC % Metamyelocytes Hypochromia Platelet Estimate Polychromasia Poikilocytosis Anisocytosis Microcytosis Macrocytosis PTT (Actin FS) 30.6 D Sodium 149 H Potassium 3.3 L Chloride 105 Carbon Dioxide 34 H Anion Gap 10 BUN 29 H Creatinine 1.5 H Random Glucose 119 H Calcium 8.3 L Phosphorus 3.2 Magnesium 2.3 Problem List - Problems (1) Seizure Code(s): R56.9 - UNSPECIFIED CONVULSIONS (2) Hypovolemic shock Code(s): R57.1 - HYPOVOLEMIC SHOCK (3) BPH (benign prostatic hyperplasia) Code(s): N40.0 - BENIGN PROSTATIC HYPERPLASIA WITHOUT LOWER URINRY TRACT SYMP (4) Hypothyroid Code(s): E03.9 - HYPOTHYROIDISM, UNSPECIFIED (5) Dementia Code(s): F03.90 - UNSPECIFIED DEMENTIA WITHOUT BEHAVIORAL DISTURBANCE A/P Seizure Disorder Hypovolemic/Septic Shock Acute Respiratory Failure UTI Pancytopenia Hypothyroidism BPH Dementia Bradycardia Atrial fibrillation - Dopamine drip - Empiric steroids - ABX - O2 to keep SPo2 >90% - Aspiration precautions - enteral feeds - DVT/GI prophylaxis - ICU monitoring Dr Parisi Critical care time spent in reviewing chart, evaluating patient and formulating plan 36 min
[2018-01-03] MEDS: KCL 10 MEQ IVPB 10 MEQ/100 ML INFUS.BAG IVPB SCH ×3 (12:08→14:11)
--- NOTE | 2018-01-03 13:53 | PN ---
Physical Exam: SUBJECTIVE: Mr. Lu remains unable to communicate at this time. OBJECTIVE: No acute events overnight. Vital Signs Period Temp Pulse Resp BP Sys/[place] Pulse Ox Last 24 Hr 96.9 F-98.4 F 37-53 12-14 85-141/56-72 100-100 GENERAL: The patient is awake, alert, and fully oriented, in no acute distress. HEAD: Normal with no signs of trauma. EYES: PERRL, extraocular movements intact, sclera anicteric, conjunctiva clear. No ptosis. ENT: Ears normal, nares patent, oropharynx clear without exudates, moist mucous membranes. NECK: Trachea midline, full range of motion, supple. LUNGS: Breath sounds equal, clear to auscultation bilaterally, no wheezes, no crackles, no accessory muscle use. HEART: Regular rate and rhythm, S1, S2 without murmur, rub or gallop. ABDOMEN: Soft, nontender, nondistended, normoactive bowel sounds, no guarding, no rebound, no hepatosplenomegaly, no masses. EXTREMITIES: 2+ pulses, warm, well-perfused, no edema. NEUROLOGICAL: Cranial nerves II through XII grossly intact. Normal speech, gait not observed. PSYCH: Normal mood, normal affect. SKIN: Warm, dry, normal turgor, no rashes or lesions noted Laboratory Results - last 24 hr 01/02/18 01/03/18 01/03/18 20:05 06:15 06:15 WBC 4.6 RBC 3.05 L Hgb 9.8 L Hct 27.9 L MCV 91.6 MCH 32.0 MCHC 35.0 RDW 14.1 Plt Count 202 MPV 7.3 L Neutrophils % 78.2 Lymphocytes % 15.6 Monocytes % 6.2 Eosinophils % 0.0 D Basophils % 0.0 PTT (Actin FS) 30.6 D Sodium Potassium 3.2 L D Chloride Carbon Dioxide Anion Gap BUN Creatinine Random Glucose Calcium Phosphorus Magnesium 2.2 01/03/18 06:15 WBC RBC Hgb Hct MCV MCH MCHC RDW Plt Count MPV Neutrophils % Lymphocytes % Monocytes % Eosinophils % Basophils % PTT (Actin FS) Sodium 149 H Potassium 3.3 L Chloride 105 Carbon Dioxide 34 H Anion Gap 10 BUN 29 H Creatinine 1.5 H Random Glucose 119 H Calcium 8.3 L Phosphorus 3.2 Magnesium 2.3 Active Medications Generic Name Dose Route Start Last Admin Trade Name Freq PRN Reason Stop Dose Admin Chlorhexidine Gluconate 1 applic 12/27/17 22:00 01/02/18 21:03 Hibiclens For Decolonization - TP 1 applic HS [facility] Administration Heparin Sodium (Porcine) 5,000 unit 01/02/18 14:00 01/03/18 06:23 Heparin - SQ 5,000 unit TID [facility] Administration Hydrocortisone Sodium Succinate 100 mg 12/29/17 10:30 01/03/18 09:19 Solu-Cortef - IVPUSH 100 mg Q8H-IV [facility] Administration Dopamine HCl/Dextrose 400,000 mcg in 250 mls @ 15.394 mls/hr 12/30/17 18:15 01/02/18 21:04 Dopamine 400 Mg/D5w - IVPB 3.5 mcg/kg/min TITR [facility] 10.776 mls/hr Protocol Administration 5 MCG/KG/MIN Piperacillin Sod/Tazobactam 50 mls @ 100 mls/hr 01/02/18 18:00 01/03/18 09:18 Sod 3.375 gm/ Dextrose IVPB 01/03/18 19:00 100 mls/hr Q8H-IV [facility] Administration Sodium Chloride 1,000 mls @ 42 mls/hr 01/03/18 11:48 Normal Saline - IV ASDIR [facility]AL Potassium Chloride 10 meq in 100 mls @ 100 mls/hr 01/03/18 11:45 01/03/18 13: 00 Potassium Chloride 10 Meq Premix Ivpb - IVPB 01/03/18 14:44 100 mls/hr Q60M [facility] Administration Levetiracetam 750 mg 12/27/17 22:00 01/03/18 09:18 Keppra Injection - IVPB 750 mg BID [facility] Administration Pantoprazole Sodium 40 mg 12/29/17 10:00 01/03/18 09:19 Protonix Iv IVPUSH 40 mg DAILY [facility] Administration ASSESSMENT/PLAN: Mr. Lu is a 77 yo male w/ pmh of hypothyroidism, dementia, BPH, seizure disorder, depression, urethral stricture who presented in acute septic shock to ER 2/2 UTI; extubated successfully after RSBI noted to be 15/450 (33). Patient currently saturating well on nasal cannula. Seizure Disorder - continue Keppra 750 BID Bradycardia - on dopamin 3.5, gets fabrice when taper - maintaining a blood pressure. - continue cardiac monitoring. - defibrilator and atropine bed side. - cardiology on case. UTI - ID following - Zosyn day 6 - improving - uc no growth Chronic pancreatitis - abdomen soft, BS + - EBV antigen positive. - GI on case. - monitor vitals - monitor intake and output PPX - Heparin gtt - protonix FEN - Fluids as tolerated - Replete electrolytes PRN - dysphagia diet. Disposition - Continue ICU care Visit type - Emergency Visit Emergency Visit: Yes ED Registration Date: 12/27/17 Care time: The patient presented to the Emergency Department on the above date and was hospitalized for further evaluation of their emergent condition. - New Patient This patient is new to me today: No - Critical Care Critical Care patient: Yes Total Critical Care Time (in minutes): 35 Critical Care Statement: The care of this patient involved high complexity decision making to prevent further life threatening deterioration of the patient 's condition and/or to evaluate & treat vital organ system(s) failure or risk of failure.
--- NOTE | 2018-01-03 14:28 | PN ---
Progress Note, Physician Chief Complaint: extubated, nonverbal, eyes open tele sbradalex, had fabrice to 30's with junctional escape. highest HR 50 BPM. History of Present Illness: The patient is a 77-year-old man with dementia, hypertension, hypothyroidism, BPH, seizure disorder, now admitted with seizures and hypothermia. The patient was intubated on pressors in the ICU. Has significant pulmonary congestion. Extubated 01/01/18. Dopamine decreased with resulting severe sinus bradycardia to 30s with junctional escape beats. Increased back to 5 mcg, now tapered to 3 mcg. echo 12/31/17 nlef mild TR No symptoms. - Current Medication List Current Medications: Active Medications Chlorhexidine Gluconate (Hibiclens For Decolonization -) 1 applic TP HS [facility] Last Admin: 01/02/18 21:03 Dose: 1 applic Heparin Sodium (Porcine) (Heparin -) 5,000 unit SQ TID [facility] Last Admin: 01/03/18 14:11 Dose: 5,000 unit Hydrocortisone Sodium Succinate (Solu-Cortef -) 100 mg IVPUSH Q8H-IV [facility] Last Admin: 01/03/18 09:19 Dose: 100 mg Dopamine HCl/Dextrose (Dopamine 400 Mg/D5w -) 400,000 mcg in 250 mls @ 15.394 mls/hr IVPB TITR [facility]; 5 MCG/KG/MIN PRN Reason: Protocol Last Admin: 01/02/18 21:04 Dose: 3.5 mcg/kg/min, 10.776 mls/hr Piperacillin Sod/Tazobactam (Sod 3.375 gm/ Dextrose) 50 mls @ 100 mls/hr IVPB Q8H-IV [facility] Stop: 01/03/18 19:00 Last Admin: 01/03/18 09:18 Dose: 100 mls/hr Sodium Chloride (Normal Saline -) 1,000 mls @ 42 mls/hr IV ASDIR [facility] Potassium Chloride (Potassium Chloride 10 Meq Premix Ivpb -) 10 meq in 100 mls @ 100 mls/hr IVPB Q60M [facility] Stop: 01/03/18 14:44 Last Admin: 01/03/18 14:11 Dose: 100 mls/hr Levetiracetam (Keppra Injection -) 750 mg IVPB BID [facility] Last Admin: 01/03/18 09:18 Dose: 750 mg Pantoprazole Sodium (Protonix Iv) 40 mg IVPUSH DAILY [facility] Last Admin: 01/03/18 09:19 Dose: 40 mg - Objective Vital Signs: Vital Signs Temperature 97.9 F 01/03/18 10:00 Pulse Rate 53 L 01/03/18 10:00 Respiratory Rate 12 01/03/18 10:00 Blood Pressure 107/57 01/03/18 10:00 O2 Sat by Pulse Oximetry (%) 100 01/03/18 09:00 Constitutional: Yes: No Distress, Calm Eyes: Yes: EOM Intact HENT: Yes: Normocephalic Neck: Yes: Trachea Midline Cardiovascular: Yes: Regular Rate and Rhythm, Bradycardia Respiratory: Yes: CTA Bilaterally Gastrointestinal: Yes: Normal Bowel Sounds, Soft Extremities: Yes: WNL Edema: Yes Peripheral Pulses WNL: No Labs: CBC, BMP 01/03/18 06:15 01/03/18 06:15 INR, PTT INR 0.93 (0.82-1.09) D 12/27/17 12:10 Problem List - Problems (1) PAF (paroxysmal atrial fibrillation) Assessment/Plan: He is now in sinus rhythm. No significant abnormalities on echo. DC heparin for now. He has tachy-fabrice syndrome. Poor AC candidate. Given his risk of recurrent infections, poor mental and functional status I would like to manage conservatively. He is a poor candidate for Pacemaker implantation. Avoid any AV liliana blocking agents. Taper dopamine slowly, to allow sinus node to recover. Will follow. Code(s): I48.0 - PAROXYSMAL ATRIAL FIBRILLATION
[2018-01-03] MEDS: SODIUM CHLORIDE 1,000 ML IV SCH (17:49)
[2018-01-03] MEDS: CHLORHEXIDINE GLUCONATE 4% CLEANSER FOR DECOLONIZATION TP SCH (21:33)
[2018-01-04] MEDS: HYDROCORTISONE SOD SUCCINATE 100 MG/2 ML VIAL IVPUSH SCH ×3 (02:00→17:47)
[2018-01-04] MEDS: DOPAMINE 400 MG/D5W - 400,000 MCG/250 ML INFUS.BAG IVPB SCH ×2 (03:28→21:30)
[2018-01-04] MEDS: HEPARIN NA (PORCINE) 5,000 UNITS/ML 1ML VIAL SQ SCH ×3 (06:23→21:30)
[2018-01-04 09:10] LABS: ALBUMIN 2.1 g/dl (3.4-5.0); ANION GAP 8 (8-16); BILIRUBIN,TOTAL 0.3 mg/dL (0.2-1.0); BLOOD UREA NITROGEN 34 mg/dL (7-18); CALCIUM 7.8 mg/dL (8.5-10.1); CHLORIDE 111 mmol/L (98-107); CO2 31 mmol/L (21-32); CREATININE 1.4 mg/dL (0.7-1.3); GLUCOSE,RANDOM 83 mg/dL (74-106); MAGNESIUM 2.2 mg/dL (1.8-2.4); PHOSPHOROUS 2.1 mg/dL (2.5-4.9); POTASSIUM 3.7 mmol/L (3.5-5.1); SGOT/AST 14 U/L (15-37); SGPT/ALT 37 U/L (12-78); SODIUM 150 mmol/L (136-145); TOT PROT 5.1 g/dl (6.4-8.2)
[2018-01-04 09:11] LABS: ALK PHOS 90 U/L (45-117)
--- NOTE | 2018-01-04 10:07 | PN ---
Progress Note, Physician History of Present Illness: Pt seen/ examined chart reviewed tapering dopamine drip cardiology f/u noted bradycardic last night remains fabrice eating well baseline dementia - Current Medication List Current Medications: Active Medications Chlorhexidine Gluconate (Hibiclens For Decolonization -) 1 applic TP HS [facility] Last Admin: 01/03/18 21:33 Dose: 1 applic Heparin Sodium (Porcine) (Heparin -) 5,000 unit SQ TID [facility] Last Admin: 01/04/18 06:23 Dose: 5,000 unit Hydrocortisone Sodium Succinate (Solu-Cortef -) 100 mg IVPUSH Q8H-IV [facility] Last Admin: 01/04/18 02:00 Dose: 100 mg Dopamine HCl/Dextrose (Dopamine 400 Mg/D5w -) 400,000 mcg in 250 mls @ 15.394 mls/hr IVPB TITR [facility]; 5 MCG/KG/MIN PRN Reason: Protocol Last Admin: 01/04/18 03:28 Dose: Not Given Sodium Chloride (Normal Saline -) 1,000 mls @ 42 mls/hr IV ASDIR [facility] Last Admin: 01/03/18 17:49 Dose: 42 mls/hr Levetiracetam (Keppra Injection -) 750 mg IVPB BID [facility] Last Admin: 01/03/18 21:34 Dose: 750 mg Pantoprazole Sodium (Protonix Iv) 40 mg IVPUSH DAILY [facility] Last Admin: 01/03/18 09:19 Dose: 40 mg - Objective Vital Signs: Vital Signs Temperature 98.2 F 01/04/18 06:00 Pulse Rate 48 L 01/04/18 08:00 Respiratory Rate 15 01/04/18 08:00 Blood Pressure 122/59 01/04/18 08:00 O2 Sat by Pulse Oximetry (%) 100 01/03/18 20:00 Constitutional: Yes: No Distress, Calm Eyes: Yes: Conjunctiva Clear Neck: Yes: Supple Cardiovascular: Yes: Bradycardia Respiratory: Yes: CTA Bilaterally Gastrointestinal: Yes: Soft Edema: No Neurological: Yes: Other (awake) Labs: CBC, BMP 01/04/18 08:15 INR, PTT INR 0.93 (0.82-1.09) D 12/27/17 12:10 Problem List - Problems (1) Bradycardia Code(s): R00.1 - BRADYCARDIA, UNSPECIFIED (2) Dementia Code(s): F03.90 - UNSPECIFIED DEMENTIA WITHOUT BEHAVIORAL DISTURBANCE (3) Hypothermia Code(s): T68.XXXA - HYPOTHERMIA, INITIAL ENCOUNTER Qualifiers: Encounter type: initial encounter Qualified Code(s): T68.XXXA - Hypothermia , initial encounter (4) Hypovolemic shock Code(s): R57.1 - HYPOVOLEMIC SHOCK (5) Pancreatitis Code(s): K85.90 - ACUTE PANCREATITIS WITHOUT NECROSIS OR INFECTION, UNSP (6) Paraphimosis Code(s): N47.2 - PARAPHIMOSIS (7) Seizure Code(s): R56.9 - UNSPECIFIED CONVULSIONS (8) Septic shock Code(s): A41.9 - SEPSIS, UNSPECIFIED ORGANISM; R65.21 - SEVERE SEPSIS WITH SEPTIC SHOCK (9) UTI (urinary tract infection) Code(s): N39.0 - URINARY TRACT INFECTION, SITE NOT SPECIFIED (10) Urethral stricture Code(s): N35.9 - URETHRAL STRICTURE, UNSPECIFIED Assessment/Plan continue present care tapering dopamine taper steroids monitor in icu till on dopamine drip. no ppm planned check lyme titres also will follow discussed with nursing staff.
[2018-01-04] MEDS: PANTOPRAZOLE SODIUM 40 MG VIAL IVPUSH SCH (10:39)
[2018-01-04] MEDS: levETIRAcetam 500 MG/5 ML INJECTION VIAL IVPB SCH ×2 (10:39→21:31)
--- NOTE | 2018-01-04 12:07 | PN ---
Teaching Attending Note Name of Resident: Nicolás Haskins ATTENDING PHYSICIAN STATEMENT I saw and evaluated the patient. I reviewed the resident's note and discussed the case with the resident. I agree with the resident's findings and plan as documented. SUBJECTIVE: Patient seen and examined in the ICU. Remains extubated on NC O2. Remains on 2 to 3 mcq Dopamine for Bradycardia and Hypotension. Lethargic but arousable. Intake & Output 01/01/18 01/02/18 01/03/18 01/04/18 23:59 23:59 23:59 23:59 Intake Total 1951.8 793.6 1022.4 842 Output Total 3726 4150 1200 350 Balance -1774.2 -3356.4 -177.6 492 Weight 166 lb 8 oz 160 lb 12.8 oz 153 lb 7.068 oz 150 lb 3.2 oz Last Vital Signs Temp Pulse Resp BP Pulse Ox 98.6 F 48 L 12 94/52 100 01/04/18 10:00 01/04/18 10:00 01/04/18 10:00 01/04/18 10:00 01/04/18 09:00 Active Medications Chlorhexidine Gluconate (Hibiclens For Decolonization -) 1 applic TP HS [facility] Last Admin: 01/03/18 21:33 Dose: 1 applic Heparin Sodium (Porcine) (Heparin -) 5,000 unit SQ TID [facility] Last Admin: 01/04/18 06:23 Dose: 5,000 unit Hydrocortisone Sodium Succinate (Solu-Cortef -) 100 mg IVPUSH Q8H-IV [facility] Last Admin: 01/04/18 10:39 Dose: 100 mg Dopamine HCl/Dextrose (Dopamine 400 Mg/D5w -) 400,000 mcg in 250 mls @ 15.394 mls/hr IVPB TITR [facility]; 5 MCG/KG/MIN PRN Reason: Protocol Last Admin: 01/04/18 03:28 Dose: Not Given Sodium Chloride (Normal Saline -) 1,000 mls @ 42 mls/hr IV ASDIR [facility] Last Admin: 01/03/18 17:49 Dose: 42 mls/hr Levetiracetam (Keppra Injection -) 750 mg IVPB BID [facility] Last Admin: 01/04/18 10:39 Dose: 750 mg Pantoprazole Sodium (Protonix Iv) 40 mg IVPUSH DAILY [facility] Last Admin: 01/04/18 10:39 Dose: 40 mg Gen: Extubated, lethargic, arousable, NAD Heart: RRR Lung: decreased breath sounds at the bases Abd: soft, nontender Ext: + edema Laboratory Results - last 24 hr 01/04/18 08:15 Sodium 150 H Potassium 3.7 Chloride 111 H Carbon Dioxide 31 Anion Gap 8 BUN 34 H Creatinine 1.4 H Creat Clearance w eGFR 49.41 Random Glucose 83 D Calcium 7.8 L Phosphorus 2.1 L D Magnesium 2.2 Total Bilirubin 0.3 D AST 14 L D ALT 37 D Alkaline Phosphatase 90 D Total Protein 5.1 L Albumin 2.1 L Problem List - Problems (1) Seizure Code(s): R56.9 - UNSPECIFIED CONVULSIONS (2) Hypovolemic shock Code(s): R57.1 - HYPOVOLEMIC SHOCK (3) BPH (benign prostatic hyperplasia) Code(s): N40.0 - BENIGN PROSTATIC HYPERPLASIA WITHOUT LOWER URINRY TRACT SYMP (4) Hypothyroid Code(s): E03.9 - HYPOTHYROIDISM, UNSPECIFIED (5) Dementia Code(s): F03.90 - UNSPECIFIED DEMENTIA WITHOUT BEHAVIORAL DISTURBANCE A/P Seizure Disorder Hypovolemic/Septic Shock Acute Respiratory Failure UTI Pancytopenia Hypothyroidism BPH Dementia Bradycardia Atrial fibrillation - Dopamine drip as needed - Wean steroids after dopamine is stopped - ABX - O2 to keep SPo2 >90% - Aspiration precautions - enteral feeds - DVT/GI prophylaxis - ICU monitoring Dr Parisi Critical care time spent in reviewing chart, evaluating patient and formulating plan 36 min
--- NOTE | 2018-01-04 12:33 | PN ---
Progress Note, URGENT CARE PHYSICIAN - Note Progress Note: Selected Entries 01/02/18 01/02/18 01/02/18 02:00 07:00 14:00 Temperature 98.5 F 97.6 F 96.9 F L 01/02/18 01/02/18 01/03/18 18:00 22:00 02:00 Temperature 97.6 F 98.4 F 97.8 F 01/03/18 01/03/18 06:00 10:00 Temperature 98 F 97.9 F Laboratory Tests 01/03/18 06:15 WBC 4.6 Selected Entries 01/03/18 01/03/18 01/03/18 02:00 06:00 10:00 Breakfast Lunch Supper Temperature 97.8 F 98 F 97.9 F 01/03/18 01/03/18 01/03/18 14:00 18:00 20:00 Breakfast 100% Lunch 100% Supper 75% Temperature 98.3 F 98.4 F 01/03/18 01/03/18 01/04/18 21:30 22:00 02:00 Breakfast Lunch Supper 75% Temperature 97.3 F L 97.4 F L 01/04/18 01/04/18 01/04/18 02:37 06:00 10:00 Breakfast Lunch Supper Temperature 97.4 F L 98.2 F 98.6 F Dys puree and nectar thick liquid continues with good appetite and good tolerance. Continue compensatory swallowing strategies. Supplements, as indicated. Monitor PO tolerance.
[2018-01-04 13:14] LABS: BASO % 1.4 % (0-2.0); EOS % 0.6 % (0-4.5); HEMATOCRIT 25.7 % (35.4-49); HEMOGLOBIN 8.8 GM/dL (11.7-16.9); LYMPH % 33.4 % (8-40); MCH 31.9 pg (25.7-33.7); MCHC 34.1 g/dl (32.0-35.9); MEAN CELL VOLUME 93.7 fl (80-96); MEAN PLT VOLUME 9.3 fl (7.5-11.1); MONO % 10.1 % (3.8-10.2); NEUT % 54.5 % (42.8-82.8); PLATELET COUNT 192 K/MM3 (134-434); RBC 2.74 M/mm3 (4.00-5.60); RDW 14.2 % (11.9-15.9); WHITE BLOOD COUNT 5.3 K/mm3 (4.0-10.0)
[2018-01-04] MEDS: SODIUM CHLORIDE 0.45% 1,000 ML IV SCH (13:22)
[2018-01-04] MEDS ORDERED: POTASSIUM PHOSPHATE 15 MM in DEXTROSE 5%-WATER - 250 ML IVPB ONE (14:27)
--- NOTE | 2018-01-04 14:47 | PN ---
Physical Exam: SUBJECTIVE: Mr. Lu denies any pain this morning. OBJECTIVE: Vital Signs Period Temp Pulse Resp BP Sys/[place] Pulse Ox Last 24 Hr 97.3 F-98.6 F 40-55 9-17 90-140/44-88 100-100 GENERAL: +The patient is awake, alert, and oriented to baseline, in no acute distress. HEAD: Normal with no signs of trauma. EYES: PERRL, extraocular movements intact, sclera anicteric, conjunctiva clear. No ptosis. ENT: Ears normal, nares patent, oropharynx clear without exudates, moist mucous membranes. NECK: Trachea midline, full range of motion, supple. LUNGS: Breath sounds equal, clear to auscultation bilaterally, no wheezes, no crackles, no accessory muscle use. HEART: Regular rate and rhythm, S1, S2 without murmur, rub or gallop. ABDOMEN: Soft, nontender, nondistended, normoactive bowel sounds, no guarding, no rebound, no hepatosplenomegaly, no masses. EXTREMITIES: 2+ pulses, warm, well-perfused, no edema. NEUROLOGICAL: Cranial nerves II through XII grossly intact. Normal speech, gait not observed. PSYCH: Normal mood, normal affect. SKIN: Warm, dry, normal turgor, no rashes or lesions noted Laboratory Results - last 24 hr 01/04/18 01/04/18 08:15 08:15 WBC 5.3 RBC 2.74 L Hgb 8.8 L D Hct 25.7 L MCV 93.7 MCH 31.9 MCHC 34.1 RDW 14.2 Plt Count 192 MPV 9.3 D Neutrophils % 54.5 D Lymphocytes % 33.4 D Monocytes % 10.1 Eosinophils % 0.6 D Basophils % 1.4 D Sodium 150 H Potassium 3.7 Chloride 111 H Carbon Dioxide 31 Anion Gap 8 BUN 34 H Creatinine 1.4 H Creat Clearance w eGFR 49.41 Random Glucose 83 D Calcium 7.8 L Phosphorus 2.1 L D Magnesium 2.2 Total Bilirubin 0.3 D AST 14 L D ALT 37 D Alkaline Phosphatase 90 D Total Protein 5.1 L Albumin 2.1 L Active Medications Generic Name Dose Route Start Last Admin Trade Name Freq PRN Reason Stop Dose Admin Chlorhexidine Gluconate 1 applic 12/27/17 22:00 01/03/18 21:33 Hibiclens For Decolonization - TP 1 applic HS RANDAL Administration Heparin Sodium (Porcine) 5,000 unit 01/02/18 14:00 01/04/18 13:23 Heparin - SQ 5,000 unit TID RANDAL Administration Hydrocortisone Sodium Succinate 100 mg 12/29/17 10:30 01/04/18 10:39 Solu-Cortef - IVPUSH 100 mg Q8H-IV RANDAL Administration Dopamine HCl/Dextrose 400,000 mcg in 250 mls @ 15.394 mls/hr 12/30/17 18:15 01/04/18 03:28 Dopamine 400 Mg/D5w - IVPB Not Given TITR RANDAL Protocol 5 MCG/KG/MIN Sodium Chloride 1,000 mls @ 42 mls/hr 01/04/18 13:15 01/04/18 13:22 1/2 Normal Saline IV 42 mls/hr ASDIR RANDAL Administration Potassium Phosphate 15 mm/ 255 mls @ 62.5 mls/hr 01/04/18 14:27 Dextrose IVPB 01/04/18 18:31 ONCE ONE Levetiracetam 750 mg 12/27/17 22:00 01/04/18 10:39 Keppra Injection - IVPB 750 mg BID RANDAL Administration Pantoprazole Sodium 40 mg 12/29/17 10:00 01/04/18 10:39 Protonix Iv IVPUSH 40 mg DAILY RANDAL Administration ASSESSMENT/PLAN: Mr. Lu is a 77 yo male w/ pmh of hypothyroidism, dementia, BPH, seizure disorder, depression, urethral stricture who presented in acute septic shock to ER 2/2 UTI. Patient currently saturating well on nasal cannula. More responsive this AM and able to verbalize 1 word answers. Seizure Disorder - continue Keppra 750 BID Bradycardia - on dopamin 1, continue taper - wean steroids after dopamine d/c'ed - maintaining a blood pressure. - continue cardiac monitoring. - defibrilator and atropine bed side. - cardiology on case. UTI - ID following - Zosyn complete - improving - uc no growth Chronic pancreatitis - abdomen soft, BS + - EBV antigen positive. - GI on case. - monitor vitals - monitor intake and output PPX - Heparin gtt - protonix FEN - Fluids as tolerated - Replete electrolytes PRN - dysphagia diet. Disposition - Continue ICU care pending improvement. Visit type - Emergency Visit Emergency Visit: Yes ED Registration Date: 12/27/17 Care time: The patient presented to the Emergency Department on the above date and was hospitalized for further evaluation of their emergent condition. - New Patient This patient is new to me today: No - Critical Care Critical Care patient: Yes Total Critical Care Time (in minutes): 35 Critical Care Statement: The care of this patient involved high complexity decision making to prevent further life threatening deterioration of the patient 's condition and/or to evaluate & treat vital organ system(s) failure or risk of failure.
--- NOTE | 2018-01-04 14:51 | PN ---
Progress Note, Physician Chief Complaint: extubated, nonverbal, eyes open tele sbrady, had afbrice to 30's and 40s with less junctional escape. highest HR 60 BPM. History of Present Illness: The patient is a 77-year-old man with dementia, hypertension, hypothyroidism, BPH, seizure disorder, now admitted with seizures and hypothermia. The patient was intubated on pressors in the ICU. Has significant pulmonary congestion. Extubated 01/01/18. Dopamine decreased with resulting severe sinus bradycardia to 30s with junctional escape beats. Increased back to 5 mcg, now tapered to 2 mcg. echo 12/31/17 nlef mild TR No symptoms. - Current Medication List Current Medications: Active Medications Chlorhexidine Gluconate (Hibiclens For Decolonization -) 1 applic TP HS [facility] Last Admin: 01/03/18 21:33 Dose: 1 applic Heparin Sodium (Porcine) (Heparin -) 5,000 unit SQ TID [facility] Last Admin: 01/04/18 13:23 Dose: 5,000 unit Hydrocortisone Sodium Succinate (Solu-Cortef -) 100 mg IVPUSH Q8H-IV [facility] Last Admin: 01/04/18 10:39 Dose: 100 mg Dopamine HCl/Dextrose (Dopamine 400 Mg/D5w -) 400,000 mcg in 250 mls @ 15.394 mls/hr IVPB TITR RANDAL; 5 MCG/KG/MIN PRN Reason: Protocol Last Admin: 01/04/18 03:28 Dose: Not Given Sodium Chloride (1/2 Normal Saline) 1,000 mls @ 42 mls/hr IV ASDIR [facility] Last Admin: 01/04/18 13:22 Dose: 42 mls/hr Potassium Phosphate 15 mm/ (Dextrose) 255 mls @ 62.5 mls/hr IVPB ONCE ONE Stop: 01/04/18 18:31 Levetiracetam (Keppra Injection -) 750 mg IVPB BID [facility] Last Admin: 01/04/18 10:39 Dose: 750 mg Pantoprazole Sodium (Protonix Iv) 40 mg IVPUSH DAILY [facility] Last Admin: 01/04/18 10:39 Dose: 40 mg - Objective Vital Signs: Vital Signs Temperature 98.6 F 01/04/18 10:00 Pulse Rate 45 L 01/04/18 12:00 Respiratory Rate 17 01/04/18 12:00 Blood Pressure 104/60 01/04/18 12:00 O2 Sat by Pulse Oximetry (%) 100 01/04/18 09:00 Constitutional: Yes: No Distress, Calm Eyes: Yes: Conjunctiva Clear, EOM Intact HENT: Yes: Normocephalic Neck: Yes: Trachea Midline Cardiovascular: Yes: Regular Rate and Rhythm, Bradycardia Respiratory: Yes: CTA Bilaterally Gastrointestinal: Yes: Normal Bowel Sounds Extremities: Yes: WNL Edema: No Labs: CBC, BMP 01/04/18 08:15 01/04/18 08:15 INR, PTT INR 0.93 (0.82-1.09) D 12/27/17 12:10 Problem List - Problems (1) PAF (paroxysmal atrial fibrillation) Assessment/Plan: He is now in sinus rhythm. No significant abnormalities on echo. DC heparin for now. He has tachy-fabrice syndrome. Poor AC candidate. Given his risk of recurrent infections, poor mental and functional status I would like to manage conservatively. He is a poor candidate for Pacemaker implantation. Avoid any AV liliana blocking agents. Taper dopamine slowly, to allow sinus node to recover, stop dopamine tomorrow and observe. Will follow. Code(s): I48.0 - PAROXYSMAL ATRIAL FIBRILLATION
[2018-01-04] MEDS: CHLORHEXIDINE GLUCONATE 4% CLEANSER FOR DECOLONIZATION TP SCH (21:30)
[2018-01-05] MEDS: HYDROCORTISONE SOD SUCCINATE 100 MG/2 ML VIAL IVPUSH SCH ×3 (02:00→18:06)
[2018-01-05] MEDS: HEPARIN NA (PORCINE) 5,000 UNITS/ML 1ML VIAL SQ SCH ×3 (06:00→21:53)
[2018-01-05 06:05] LABS: BASO % 0.2 % (0-2.0); EOS % 0.1 % (0-4.5); HEMATOCRIT 23.6 % (35.4-49); HEMOGLOBIN 8.4 GM/dL (11.7-16.9); LYMPH % 30.2 % (8-40); MCH 33.1 pg (25.7-33.7); MCHC 35.8 g/dl (32.0-35.9); MEAN CELL VOLUME 92.4 fl (80-96); NEUT % 58.5 % (42.8-82.8); PLATELET COUNT 196 K/MM3 (134-434); RBC 2.55 M/mm3 (4.00-5.60); RDW 13.9 % (11.9-15.9); WHITE BLOOD COUNT 4.5 K/mm3 (4.0-10.0)
[2018-01-05 07:05] LABS: ANION GAP 7 (8-16); BLOOD UREA NITROGEN 40 mg/dL (7-18); CALCIUM 7.5 mg/dL (8.5-10.1); CHLORIDE 108 mmol/L (98-107); CO2 30 mmol/L (21-32); GLUCOSE,RANDOM 92 mg/dL (74-106); MAGNESIUM 1.9 mg/dL (1.8-2.4); POTASSIUM 3.7 mmol/L (3.5-5.1); SODIUM 145 mmol/L (136-145)
[2018-01-05] MEDS: SODIUM CHLORIDE 1,000 ML IV SCH (07:39)
--- NOTE | 2018-01-05 08:50 | PN ---
Progress Note (short form) - Note Progress Note: Pulm/CCM SUBJECTIVE: Patient seen and examined in the ICU. -off Dopa, HR high 40s, hemodynamically stable -back to baseline mental status, eating well this morning CBCD WBC 4.5 K/mm3 (4.0-10.0) 01/05/18 05:45 RBC 2.55 M/mm3 (4.00-5.60) L 01/05/18 05:45 Hgb 8.4 GM/dL (11.7-16.9) L 01/05/18 05:45 Hct 23.6 % (35.4-49) L 01/05/18 05:45 MCV 92.4 fl (80-96) 01/05/18 05:45 MCHC 35.8 g/dl (32.0-35.9) 01/05/18 05:45 RDW 13.9 % (11.9-15.9) 01/05/18 05:45 Plt Count 196 K/MM3 (134-434) 01/05/18 05:45 MPV 8.0 fl (7.5-11.1) D 01/05/18 05:45 CMP Sodium 145 mmol/L (136-145) 01/05/18 05:45 Potassium 3.7 mmol/L (3.5-5.1) 01/05/18 05:45 Chloride 108 mmol/L (98-107) H 01/05/18 05:45 Carbon Dioxide 30 mmol/L (21-32) 01/05/18 05:45 Anion Gap 7 (8-16) L 01/05/18 05:45 BUN 40 mg/dL (7-18) H 01/05/18 05:45 Creatinine 1.4 mg/dL (0.7-1.3) H 01/04/18 08:15 Creat Clearance w eGFR 49.41 (>60) 01/04/18 08:15 Random Glucose 92 mg/dL (74-106) 01/05/18 05:45 Calcium 7.5 mg/dL (8.5-10.1) L 01/05/18 05:45 Total Bilirubin 0.3 mg/dL (0.2-1.0) D 01/04/18 08:15 AST 14 U/L (15-37) L D 01/04/18 08:15 ALT 37 U/L (12-78) D 01/04/18 08:15 Alkaline Phosphatase 90 U/L (45-117) D 01/04/18 08:15 Total Protein 5.1 g/dl (6.4-8.2) L 01/04/18 08:15 Albumin 2.0 g/dl (3.4-5.0) L 01/05/18 05:45 CARDIAC ENZYMES Creatine Kinase 34 IU/L (39-308) L 12/30/17 05:35 Troponin I < 0.02 ng/ml (0.00-0.05) 12/30/17 05:35 Active Medications Chlorhexidine Gluconate (Hibiclens For Decolonization -) 1 applic TP HS [facility] Last Admin: 01/04/18 21:30 Dose: 1 applic Heparin Sodium (Porcine) (Heparin -) 5,000 unit SQ TID [facility] Last Admin: 01/05/18 06:00 Dose: 5,000 unit Hydrocortisone Sodium Succinate (Solu-Cortef -) 100 mg IVPUSH Q8H-IV [facility] Last Admin: 01/05/18 02:00 Dose: 100 mg Dopamine HCl/Dextrose (Dopamine 400 Mg/D5w -) 400,000 mcg in 250 mls @ 15.394 mls/hr IVPB TITR RANDAL; 5 MCG/KG/MIN PRN Reason: Protocol Last Admin: 01/04/18 21:30 Dose: Not Given Sodium Chloride (1/2 Normal Saline) 1,000 mls @ 42 mls/hr IV ASDIR [facility] Last Admin: 01/04/18 13:22 Dose: 42 mls/hr Levetiracetam (Keppra Injection -) 750 mg IVPB BID [facility] Last Admin: 01/04/18 21:31 Dose: 750 mg Pantoprazole Sodium (Protonix Iv) 40 mg IVPUSH DAILY [facility] Last Admin: 01/04/18 10:39 Dose: 40 mg Gen: awake, non verbal Heart: RRR Lung: decreased breath sounds at the bases Abd: soft, nontender Ext: trace LE dependent edema Microbiology 12/27/17 12:10 Blood - Peripheral Venous Blood Culture - Final NO GROWTH AFTER 5 DAYS INCUBATION 12/27/17 12:10 Blood - Peripheral Venous Blood Culture - Final NO GROWTH AFTER 5 DAYS INCUBATION 12/27/17 22:31 Urine - Urine - Catheterized Urine Culture - Final NO GROWTH OBTAINED Problem List - Problems (1) Seizure Code(s): R56.9 - UNSPECIFIED CONVULSIONS (2) Hypovolemic shock Code(s): R57.1 - HYPOVOLEMIC SHOCK (3) BPH (benign prostatic hyperplasia) Code(s): N40.0 - BENIGN PROSTATIC HYPERPLASIA WITHOUT LOWER URINRY TRACT SYMP (4) Hypothyroid Code(s): E03.9 - HYPOTHYROIDISM, UNSPECIFIED (5) Dementia Code(s): F03.90 - UNSPECIFIED DEMENTIA WITHOUT BEHAVIORAL DISTURBANCE A/P Seizure Disorder Hypovolemic/Septic Shock Acute Respiratory Failure UTI Pancytopenia Hypothyroidism BPH Dementia Bradycardia Atrial fibrillation - Dopamine drip off - will decrease steroids today - ABX - O2 to keep SPo2 >90% - Aspiration precautions - transition to PO diet - DVT/GI prophylaxis - ok for tele today [place] UP [id number] Min CCT
[2018-01-05 09:06] LABS: CREATININE 1.5 mg/dL (0.7-1.3); PHOSPHOROUS 2.3 mg/dL (2.5-4.9); TOT PROT 4.6 g/dl (6.4-8.2)
[2018-01-05 09:07] LABS: ALK PHOS 78 U/L (45-117); BILIRUBIN,TOTAL 0.2 mg/dL (0.2-1.0); SGOT/AST 20 U/L (15-37); SGPT/ALT 41 U/L (12-78)
--- NOTE | 2018-01-05 10:00 | PN ---
Progress Note, Physician Chief Complaint: off Dopamine drip awake alert no distress - Current Medication List Current Medications: Active Medications Chlorhexidine Gluconate (Hibiclens For Decolonization -) 1 applic TP HS [facility] 234 BEDS AT [facility] Last Admin: 01/04/18 21:30 Dose: 1 applic Heparin Sodium (Porcine) (Heparin -) 5,000 unit SQ TID [facility]S [facility]CLUDE 234 BEDS AT [facility] Last Admin: 01/05/18 06:00 Dose: 5,000 unit Hydrocortisone Sodium Succinate (Solu-Cortef -) 50 mg IVPUSH Q8H-IV RANDAL Dopamine HCl/Dextrose (Dopamine 400 Mg/D5w -) 400,000 mcg in 250 mls @ 15.394 mls/hr IVPB TITR RANDAL; 5 MCG/KG/MIN PRN Reason: Protocol Last Admin: 01/04/18 21:30 Dose: Not Given Sodium Chloride (1/2 Normal Saline) 1,000 mls @ 42 mls/hr IV ASDIR COUNTS INCLUDE 234 BEDS AT THE [facility] Last Admin: 01/04/18 13:22 Dose: 42 mls/hr Levetiracetam (Keppra Injection -) 750 mg IVPB BID [facility]CLUDE 234 BEDS AT THE [facility] Last Admin: 01/04/18 21:31 Dose: 750 mg Pantoprazole Sodium (Protonix Iv) 40 mg IVPUSH DAILY [facility]S [facility]CLUDE 234 BEDS AT THE [facility] Last Admin: 01/04/18 10:39 Dose: 40 mg - Objective Vital Signs: Vital Signs Temperature 98.6 F 01/05/18 06:00 Pulse Rate 48 L 01/05/18 08:00 Respiratory Rate 15 01/05/18 08:00 Blood Pressure 130/68 01/05/18 08:00 O2 Sat by Pulse Oximetry (%) 100 01/04/18 20:00 Constitutional: Yes: No Distress Cardiovascular: Yes: Regular Rate and Rhythm Respiratory: Yes: Diminished Gastrointestinal: Yes: Normal Bowel Sounds, Soft. No: Tenderness Edema: No Labs: CBC, BMP 01/05/18 05:45 01/05/18 05:45 INR, PTT INR 0.93 (0.82-1.09) D 12/27/17 12:10 Problem List - Problems (1) BPH (benign prostatic hyperplasia) Code(s): N40.0 - BENIGN PROSTATIC HYPERPLASIA WITHOUT LOWER URINRY TRACT SYMP (2) Hypovolemic shock Code(s): R57.1 - HYPOVOLEMIC SHOCK (3) Respiratory failure, acute Code(s): J96.00 - ACUTE RESPIRATORY FAILURE, UNSP W HYPOXIA OR HYPERCAPNIA (4) Seizure Code(s): R56.9 - UNSPECIFIED CONVULSIONS (5) Septic shock Code(s): A41.9 - SEPSIS, UNSPECIFIED ORGANISM; R65.21 - SEVERE SEPSIS WITH SEPTIC SHOCK (6) UTI (urinary tract infection) Code(s): N39.0 - URINARY TRACT INFECTION, SITE NOT SPECIFIED Assessment/Plan PLAN pt eating well all cultures negative ID follow up noted off antibiotics, Heparin and Dopamine ok to transfer to Tele taper Steroid
[2018-01-05] MEDS ORDERED: PT OWN MED DRAWER 7, Y5N ONE (10:56)
[2018-01-05] MEDS: levETIRAcetam 500 MG/5 ML INJECTION VIAL IVPB SCH ×2 (10:57→21:53)
[2018-01-05] MEDS: PANTOPRAZOLE SODIUM 40 MG VIAL IVPUSH SCH (10:58)
[2018-01-05] MEDS: SODIUM CHLORIDE 0.45% 1,000 ML IV SCH (12:41)
--- NOTE | 2018-01-05 17:16 | PN ---
Progress Note, Physician Chief Complaint: Patient is awake without acute distress. Tele shows sinus rhythm, heart rate around 60 BPM. History of Present Illness: 77-year-old man with dementia, hypertension, hypothyroidism, BPH, seizure disorder, admitted with seizures and hypothermia. The patient was intubated on pressors in the ICU. Has significant pulmonary congestion. Extubated 01/01/18. Dopamine decreased with resulting severe sinus bradycardia to 30s with junctional escape beats. He is now off dopamine. Heart rate is around 60 bpm. No recurrent bradycardia or pause. Echo 12/31/17 nlef mild TR - Current Medication List Current Medications: Active Medications Chlorhexidine Gluconate (Hibiclens For Decolonization -) 1 applic TP HS [facility] Last Admin: 01/04/18 21:30 Dose: 1 applic Heparin Sodium (Porcine) (Heparin -) 5,000 unit SQ TID [facility] Last Admin: 01/05/18 15:00 Dose: 5,000 unit Hydrocortisone Sodium Succinate (Solu-Cortef -) 50 mg IVPUSH Q8H-IV [facility] Last Admin: 01/05/18 10:57 Dose: 50 mg Dopamine HCl/Dextrose (Dopamine 400 Mg/D5w -) 400,000 mcg in 250 mls @ 15.394 mls/hr IVPB TITR RANDAL; 5 MCG/KG/MIN PRN Reason: Protocol Last Admin: 01/04/18 21:30 Dose: Not Given Sodium Chloride (1/2 Normal Saline) 1,000 mls @ 42 mls/hr IV ASDIR [facility] Last Admin: 01/05/18 12:41 Dose: 42 mls/hr Levetiracetam (Keppra Injection -) 750 mg IVPB BID [facility] Last Admin: 01/05/18 10:57 Dose: 750 mg Pantoprazole Sodium (Protonix Iv) 40 mg IVPUSH DAILY [facility] Last Admin: 01/05/18 10:58 Dose: 40 mg - Objective Vital Signs: Vital Signs Temperature 98.5 F 01/05/18 10:00 Pulse Rate 54 L 01/05/18 14:00 Respiratory Rate 13 01/05/18 14:00 Blood Pressure 104/61 01/05/18 14:00 O2 Sat by Pulse Oximetry (%) 97 01/05/18 12:28 General: Well developed. Well nourished. No acute distress. Neck: Supple. No JVD. No bruits. Heart: Normal S1, S2: Regular rhythm and rate. II/ PILLO. No gallop or rub. Lungs: Symmetrical air entry. Coarse BS. No crackle. No wheezing or rhonchi. Abdomen: Soft. Bowel sound positive. Non tender. No masses. Extremities: No edema. No clubbing or cyanosis. Labs: CBC, BMP 01/05/18 05:45 01/05/18 05:45 INR, PTT INR 0.93 (0.82-1.09) D 12/27/17 12:10 Assessment/Plan 77-year-old man with dementia, hypertension, hypothyroidism, BPH, seizure disorder, admitted with seizures and hypothermia. The patient was intubated on pressors in the ICU. Has significant pulmonary congestion. Extubated 01/01/18. Dopamine decreased with resulting severe sinus bradycardia to 30s with junctional escape beats. He is now off dopamine. Heart rate is around 60 bpm. No recurrent bradycardia or pause. Echo 12/31/17 nlef mild TR He is now in sinus rhythm. No significant abnormalities on echo. He has tachy-fabrice syndrome. Poor AC candidate. Given his risk of recurrent infections, poor mental and functional status. He should be managed conservatively. He is a poor candidate for pacemaker implantation. Avoid any AV liliana blocking agents. Please call us for reconsult as needed.
[2018-01-05] MEDS: CHLORHEXIDINE GLUCONATE 4% CLEANSER FOR DECOLONIZATION TP SCH (21:53)
[2018-01-06] MEDS: DOPAMINE 400 MG/D5W - 400,000 MCG/250 ML INFUS.BAG IVPB SCH (02:18)
[2018-01-06] MEDS: HYDROCORTISONE SOD SUCCINATE 100 MG/2 ML VIAL IVPUSH SCH ×3 (02:19→17:44)
[2018-01-06] MEDS: HEPARIN NA (PORCINE) 5,000 UNITS/ML 1ML VIAL SQ SCH ×3 (05:31→21:30)
[2018-01-06 06:12] LABS: HEMATOCRIT 24.3 % (35.4-49); HEMOGLOBIN 8.5 GM/dL (11.7-16.9); MCH 32.3 pg (25.7-33.7); MCHC 34.8 g/dl (32.0-35.9); MEAN CELL VOLUME 92.7 fl (80-96); MEAN PLT VOLUME 8.5 fl (7.5-11.1); PLATELET COUNT 207 K/MM3 (134-434); RBC 2.62 M/mm3 (4.00-5.60); RDW 14.4 % (11.9-15.9); WHITE BLOOD COUNT 4.2 K/mm3 (4.0-10.0)
[2018-01-06 06:37] LABS: CHLORIDE 110 mmol/L (98-107); POTASSIUM 3.8 mmol/L (3.5-5.1); SODIUM 146 mmol/L (136-145)
[2018-01-06 06:42] LABS: ALK PHOS 80 U/L (45-117); ANION GAP 9 (8-16); BILIRUBIN,TOTAL 0.2 mg/dL (0.2-1.0); BLOOD UREA NITROGEN 32 mg/dL (7-18); CO2 27 mmol/L (21-32); CREATININE 1.3 mg/dL (0.7-1.3); GLUCOSE,RANDOM 80 mg/dL (74-106); SGOT/AST 19 U/L (15-37); SGPT/ALT 42 U/L (12-78); TOT PROT 4.8 g/dl (6.4-8.2)
[2018-01-06] MEDS: levETIRAcetam 500 MG/5 ML INJECTION VIAL IVPB SCH ×2 (09:26→21:30)
[2018-01-06] MEDS: PANTOPRAZOLE SODIUM 40 MG VIAL IVPUSH SCH (09:26)
--- NOTE | 2018-01-06 11:09 | PN ---
Progress Note, Physician Chief Complaint: off Dopamine drip awake alert no distress - Current Medication List Current Medications: Active Medications Chlorhexidine Gluconate (Hibiclens For Decolonization -) 1 applic TP HS [facility] Last Admin: 01/05/18 21:53 Dose: 1 applic Heparin Sodium (Porcine) (Heparin -) 5,000 unit SQ TID [facility] Last Admin: 01/06/18 05:31 Dose: 5,000 unit Hydrocortisone Sodium Succinate (Solu-Cortef -) 25 mg IVPUSH Q8H-IV [facility] Last Admin: 01/06/18 09:44 Dose: 25 mg Levetiracetam (Keppra Injection -) 750 mg IVPB BID [facility] Last Admin: 01/06/18 09:26 Dose: 750 mg Pantoprazole Sodium (Protonix Iv) 40 mg IVPUSH DAILY [facility] Last Admin: 01/06/18 09:26 Dose: 40 mg - Objective Vital Signs: Vital Signs Temperature 98.4 F 01/06/18 06:00 Pulse Rate 48 L 01/06/18 08:00 Respiratory Rate 13 01/06/18 08:00 Blood Pressure 138/58 01/06/18 08:00 O2 Sat by Pulse Oximetry (%) 96 01/05/18 20:00 Constitutional: Yes: No Distress Cardiovascular: Yes: Regular Rate and Rhythm Respiratory: Yes: Diminished Gastrointestinal: Yes: Normal Bowel Sounds, Soft. No: Tenderness Edema: No Labs: CBC, BMP 01/06/18 05:50 01/06/18 05:50 INR, PTT INR 0.93 (0.82-1.09) D 12/27/17 12:10 Problem List - Problems (1) BPH (benign prostatic hyperplasia) Code(s): N40.0 - BENIGN PROSTATIC HYPERPLASIA WITHOUT LOWER URINRY TRACT SYMP (2) Hypovolemic shock Code(s): R57.1 - HYPOVOLEMIC SHOCK (3) Respiratory failure, acute Code(s): J96.00 - ACUTE RESPIRATORY FAILURE, UNSP W HYPOXIA OR HYPERCAPNIA (4) Seizure Code(s): R56.9 - UNSPECIFIED CONVULSIONS (5) Septic shock Code(s): A41.9 - SEPSIS, UNSPECIFIED ORGANISM; R65.21 - SEVERE SEPSIS WITH SEPTIC SHOCK (6) UTI (urinary tract infection) Code(s): N39.0 - URINARY TRACT INFECTION, SITE NOT SPECIFIED Assessment/Plan PLAN pt eating well all cultures negative ID follow up noted off antibiotics, Heparin and Dopamine ok to transfer to Tele taper Steroid
--- NOTE | 2018-01-06 12:41 | PN ---
Progress Note (short form) - Note Progress Note: Pulm/CCM SUBJECTIVE: Patient seen and examined in the ICU. -remains off dopa, HR 40s -in for tele bed, no acute changes CBCD WBC 4.2 K/mm3 (4.0-10.0) 01/06/18 05:50 RBC 2.62 M/mm3 (4.00-5.60) L 01/06/18 05:50 Hgb 8.5 GM/dL (11.7-16.9) L 01/06/18 05:50 Hct 24.3 % (35.4-49) L 01/06/18 05:50 MCV 92.7 fl (80-96) 01/06/18 05:50 MCHC 34.8 g/dl (32.0-35.9) 01/06/18 05:50 RDW 14.4 % (11.9-15.9) 01/06/18 05:50 Plt Count 207 K/MM3 (134-434) 01/06/18 05:50 MPV 8.5 fl (7.5-11.1) 01/06/18 05:50 CMP Sodium 146 mmol/L (136-145) H 01/06/18 05:50 Potassium 3.8 mmol/L (3.5-5.1) 01/06/18 05:50 Chloride 110 mmol/L (98-107) H 01/06/18 05:50 Carbon Dioxide 27 mmol/L (21-32) 01/06/18 05:50 Anion Gap 9 (8-16) 01/06/18 05:50 BUN 32 mg/dL (7-18) H 01/06/18 05:50 Creatinine 1.3 mg/dL (0.7-1.3) 01/06/18 05:50 Creat Clearance w eGFR 53.82 (>60) 01/06/18 05:50 Random Glucose 80 mg/dL (74-106) 01/06/18 05:50 Calcium 8.0 mg/dL (8.5-10.1) L 01/06/18 05:50 Total Bilirubin 0.2 mg/dL (0.2-1.0) 01/06/18 05:50 AST 19 U/L (15-37) 01/06/18 05:50 ALT 42 U/L (12-78) 01/06/18 05:50 Alkaline Phosphatase 80 U/L (45-117) 01/06/18 05:50 Total Protein 4.8 g/dl (6.4-8.2) L 01/06/18 05:50 Albumin 2.0 g/dl (3.4-5.0) L 01/06/18 05:50 CARDIAC ENZYMES Creatine Kinase 34 IU/L (39-308) L 12/30/17 05:35 Troponin I < 0.02 ng/ml (0.00-0.05) 12/30/17 05:35 Ambulatory Orders Acetaminophen [Tylenol .Regular Strength -] 650 mg PO TID PRN 01/08/14 Melatonin 2 mg PO HS 01/08/14 Tamsulosin HCl [Flomax -] 0.4 mg PO HS 04/18/14 Levothyroxine [Synthroid -] 50 mcg PO DAILY 07/09/14 Amlodipine Besylate 5 mg PO DAILY 09/10/16 Benztropine Mesylate 1 mg PO BID 09/10/16 Polyethylene Glycol 3350 [Miralax (For Daily Use) -] 17 gm PO DAILY 09/10/16 Valproic Acid (As Sodium Salt) [Valproic Acid] 500 mg PO BID 09/10/16 Ascorbic Acid [Vitamin C] 500 mg PO DAILY 12/27/17 Aspirin [Aspirin EC] 81 mg PO DAILY 12/27/17 Cholecalciferol (Vitamin D3) [Vitamin D3] 1,000 unit PO DAILY 12/27/17 Multivitamins [Tab-A-Vit -] 1 tab PO DAILY 12/27/17 Current Medications Chlorhexidine Gluconate (Hibiclens For Decolonization -) 1 applic TP HS [facility] Last Admin: 01/05/18 21:53 Dose: 1 applic Heparin Sodium (Porcine) (Heparin -) 5,000 unit SQ TID [facility] Last Admin: 01/06/18 05:31 Dose: 5,000 unit Hydrocortisone Sodium Succinate (Solu-Cortef -) 25 mg IVPUSH Q8H-IV [facility] Last Admin: 01/06/18 09:44 Dose: 25 mg Levetiracetam (Keppra Injection -) 750 mg IVPB BID [facility] Last Admin: 01/06/18 09:26 Dose: 750 mg Pantoprazole Sodium (Protonix Iv) 40 mg IVPUSH DAILY [facility] Last Admin: 01/06/18 09:26 Dose: 40 mg Gen: awake, non verbal Heart: RRR Lung: decreased breath sounds at the bases Abd: soft, nontender Ext: trace LE dependent edema Microbiology 12/27/17 12:10 Blood - Peripheral Venous Blood Culture - Final NO GROWTH AFTER 5 DAYS INCUBATION 12/27/17 12:10 Blood - Peripheral Venous Blood Culture - Final NO GROWTH AFTER 5 DAYS INCUBATION 12/27/17 22:31 Urine - Urine - Catheterized Urine Culture - Final NO GROWTH OBTAINED Problem List - Problems (1) Seizure Code(s): R56.9 - UNSPECIFIED CONVULSIONS (2) Hypovolemic shock Code(s): R57.1 - HYPOVOLEMIC SHOCK (3) BPH (benign prostatic hyperplasia) Code(s): N40.0 - BENIGN PROSTATIC HYPERPLASIA WITHOUT LOWER URINRY TRACT SYMP (4) Hypothyroid Code(s): E03.9 - HYPOTHYROIDISM, UNSPECIFIED (5) Dementia Code(s): F03.90 - UNSPECIFIED DEMENTIA WITHOUT BEHAVIORAL DISTURBANCE A/P Seizure Disorder Hypovolemic/Septic Shock Acute Respiratory Failure UTI Pancytopenia Hypothyroidism BPH Dementia Bradycardia Atrial fibrillation - Dopamine drip off - wean steroids to off - off ABX - O2 to keep SPo2 >90% - Aspiration precautions - transition to PO diet - DVT/GI prophylaxis - ok for [facility] [place] ACNP [id number] 35 [address] CCT
[2018-01-06] MEDS: CHLORHEXIDINE GLUCONATE 4% CLEANSER FOR DECOLONIZATION TP SCH (21:31)
[2018-01-07] MEDS: HYDROCORTISONE SOD SUCCINATE 100 MG/2 ML VIAL IVPUSH SCH ×4 (01:14→22:06)
[2018-01-07] MEDS: HEPARIN NA (PORCINE) 5,000 UNITS/ML 1ML VIAL SQ SCH ×3 (05:16→22:07)
[2018-01-07 08:07] LABS: ANION GAP 8 (8-16); BASO % 0.2 % (0-2.0); BILIRUBIN,TOTAL 0.3 mg/dL (0.2-1.0); BLOOD UREA NITROGEN 26 mg/dL (7-18); CHLORIDE 110 mmol/L (98-107); CO2 27 mmol/L (21-32); CREATININE 1.1 mg/dL (0.7-1.3); GLUCOSE,RANDOM 115 mg/dL (74-106); HEMATOCRIT 24.4 % (35.4-49); HEMOGLOBIN 8.7 GM/dL (11.7-16.9); MCH 32.6 pg (25.7-33.7); MCHC 35.5 g/dl (32.0-35.9); MEAN CELL VOLUME 91.8 fl (80-96); MEAN PLT VOLUME 8.2 fl (7.5-11.1); MONO % 4.5 % (3.8-10.2); NEUT % 79.3 % (42.8-82.8); PLATELET COUNT 231 K/MM3 (134-434); POTASSIUM 3.6 mmol/L (3.5-5.1); RBC 2.66 M/mm3 (4.00-5.60); RDW 14.3 % (11.9-15.9); SGOT/AST 17 U/L (15-37); SGPT/ALT 42 U/L (12-78); SODIUM 145 mmol/L (136-145); TOT PROT 4.9 g/dl (6.4-8.2); WHITE BLOOD COUNT 4.6 K/mm3 (4.0-10.0)
[2018-01-07 08:08] LABS: ALK PHOS 86 U/L (45-117)
--- NOTE | 2018-01-07 08:36 | PN ---
Progress Note, Physician History of Present Illness: Pt seen/ examined chart reviewed off dopa/ abx comfortable - Current Medication List Current Medications: Active Medications Chlorhexidine Gluconate (Hibiclens For Decolonization -) 1 applic TP HS [facility] Last Admin: 01/06/18 21:31 Dose: 1 applic Heparin Sodium (Porcine) (Heparin -) 5,000 unit SQ TID [facility] Last Admin: 01/07/18 05:16 Dose: 5,000 unit Hydrocortisone Sodium Succinate (Solu-Cortef -) 25 mg IVPUSH Q8H-IV [facility] Last Admin: 01/07/18 01:14 Dose: 25 mg Levetiracetam (Keppra Injection -) 750 mg IVPB BID [facility] Last Admin: 01/06/18 21:30 Dose: 750 mg Pantoprazole Sodium (Protonix Iv) 40 mg IVPUSH DAILY [facility] Last Admin: 01/06/18 09:26 Dose: 40 mg - Objective Vital Signs: Vital Signs Temperature 97.4 F L 01/07/18 08:00 Pulse Rate 44 L 01/07/18 08:00 Respiratory Rate 12 01/07/18 08:00 Blood Pressure 131/70 01/07/18 08:00 O2 Sat by Pulse Oximetry (%) 96 01/06/18 21:00 Constitutional: Yes: No Distress, Calm Eyes: Yes: Conjunctiva Clear Neck: Yes: Supple Cardiovascular: Yes: Bradycardia Respiratory: Yes: CTA Bilaterally Gastrointestinal: Yes: Soft Edema: No Neurological: Yes: Alert Labs: CBC, BMP 01/07/18 07:15 INR, PTT INR 0.93 (0.82-1.09) D 12/27/17 12:10 Problem List - Problems (1) Bradycardia Code(s): R00.1 - BRADYCARDIA, UNSPECIFIED (2) Dementia Code(s): F03.90 - UNSPECIFIED DEMENTIA WITHOUT BEHAVIORAL DISTURBANCE (3) Hypothermia Code(s): T68.XXXA - HYPOTHERMIA, INITIAL ENCOUNTER Qualifiers: Encounter type: initial encounter Qualified Code(s): T68.XXXA - Hypothermia , initial encounter (4) Hypovolemic shock Code(s): R57.1 - HYPOVOLEMIC SHOCK (5) Pancreatitis Code(s): K85.90 - ACUTE PANCREATITIS WITHOUT NECROSIS OR INFECTION, UNSP (6) Paraphimosis Code(s): N47.2 - PARAPHIMOSIS (7) Seizure Code(s): R56.9 - UNSPECIFIED CONVULSIONS (8) Septic shock Code(s): A41.9 - SEPSIS, UNSPECIFIED ORGANISM; R65.21 - SEVERE SEPSIS WITH SEPTIC SHOCK (9) UTI (urinary tract infection) Code(s): N39.0 - URINARY TRACT INFECTION, SITE NOT SPECIFIED (10) Urethral stricture Code(s): N35.9 - URETHRAL STRICTURE, UNSPECIFIED Assessment/Plan stable still fabrice but better continue present care taper steroids monitor on tele will follow
[2018-01-07] MEDS: levETIRAcetam 500 MG/5 ML INJECTION VIAL IVPB SCH ×2 (09:54→22:07)
[2018-01-07] MEDS: PANTOPRAZOLE SODIUM 40 MG VIAL IVPUSH SCH (09:54)
--- NOTE | 2018-01-07 13:20 | PN ---
Physical Exam: SUBJECTIVE: Patient seen and examined in ICU. No acute events overnight. Denies pain, limited communication. At baseline. Weaned off dopamine drip yesterday. OBJECTIVE: Vital Signs Period Temp Pulse Resp BP Sys/[place] Pulse Ox Last 24 Hr 97.4 F-98.8 F 33-99 11-18 85-162/50-71 96-96 GENERAL: The patient is awake, alert, oriented to self, in no acute distress. HEAD: Normal with no signs of trauma. EYES: PERRL, extraocular movements intact, sclera anicteric, conjunctiva clear. No ptosis. NECK: Trachea midline, full range of motion, supple. LUNGS: Breath sounds equal, clear to auscultation bilaterally, no wheezes, no crackles, no accessory muscle use. HEART: Regular rate and rhythm, S1, S2 without murmur, rub or gallop. EXTREMITIES: 2+ pulses, warm, well-perfused, no edema. NEUROLOGICAL: Cranial nerves II through XII grossly intact. Gait not observed. SKIN: Warm, dry, normal turgor, no rashes or lesions noted Laboratory Results - last 24 hr 01/07/18 01/07/18 07:15 07:15 WBC 4.6 RBC 2.66 L Hgb 8.7 L Hct 24.4 L MCV 91.8 MCH 32.6 MCHC 35.5 RDW 14.3 Plt Count 231 MPV 8.2 Neutrophils % 79.3 D Lymphocytes % 16.0 D Monocytes % 4.5 Eosinophils % 0.0 D Basophils % 0.2 Sodium 145 Potassium 3.6 Chloride 110 H Carbon Dioxide 27 Anion Gap 8 BUN 26 H Creatinine 1.1 Creat Clearance w eGFR > 60 Random Glucose 115 H D Calcium 8.0 L Total Bilirubin 0.3 D AST 17 ALT 42 Alkaline Phosphatase 86 Total Protein 4.9 L Albumin 2.0 L Active Medications Generic Name Dose Route Start Last Admin Trade Name Freq PRN Reason Stop Dose Admin Chlorhexidine Gluconate 1 applic 12/27/17 22:00 01/06/18 21:31 Hibiclens For Decolonization - TP 1 applic HS [facility] Administration Heparin Sodium (Porcine) 5,000 unit 01/02/18 14:00 01/07/18 05:16 Heparin - SQ 5,000 unit TID [facility] Administration Hydrocortisone Sodium Succinate 25 mg 01/06/18 08:40 01/07/18 09:54 Solu-Cortef - IVPUSH 01/07/18 18:00 25 mg Q8H-IV [facility] Administration Hydrocortisone Sodium Succinate 25 mg 01/07/18 22:00 Solu-Cortef - IVPUSH Q12H [facility] Levetiracetam 750 mg 12/27/17 22:00 01/07/18 09:54 Keppra Injection - IVPB 750 mg BID [facility] Administration ASSESSMENT/PLAN: 77M with history of seizures, hypothyroidism, depression here today with UTI. Completed course of zosyn. Off pressors. Almanzar still in place. Vital signs stable overnight, lessening bradycardia with rates in to 50s during the day. ID #[id number] - Off pressors - Completed zosyn Neuro #Dementia - Re-orient, window open to sunlight #Seizure history - Keppra CV #Septic shock - BPs stable, off dopamine yesterday, off levophed 12/29 Resp #Respiratory failure - Extubated 01/03, stable again today Renal #Urinary retention - Almanzar placed in 12/29, due for change. Patient unable to communicate if he is able to urinate. Will attempt voiding trial tomorrow if still in ICU. Endo #Septic shock - Taper steroids, moving hydrocortisone to q12 FEN/GI - Tolerating PO, normal diet - Replete electrolytes as necessary Dispo - To tele Visit type - Emergency Visit Emergency Visit: Yes ED Registration Date: 12/27/17 Care time: The patient presented to the Emergency Department on the above date and was hospitalized for further evaluation of their emergent condition. - New Patient This patient is new to me today: Yes Date on this admission: 01/07/18 - Critical Care Critical Care patient: Yes Total Critical Care Time (in minutes): 35 Critical Care Statement: The care of this patient involved high complexity decision making to prevent further life threatening deterioration of the patient 's condition and/or to evaluate & treat vital organ system(s) failure or risk of failure.
--- NOTE | 2018-01-07 13:55 | PN ---
Teaching Attending Note Name of Resident: Binh Bond ATTENDING PHYSICIAN STATEMENT I saw and evaluated the patient. I reviewed the resident's note and discussed the case with the resident. I agree with the resident's findings and plan as documented. SUBJECTIVE: Pt seen and examined in the ICU. Remains bradycardic but slightly better off dopamine gtt. Tolerating PO. OBJECTIVE: Last Vital Signs Temp Pulse Resp BP Pulse Ox 97.8 F 99 H 12 94/54 96 01/07/18 10:00 01/07/18 11:41 01/07/18 11:41 01/07/18 11:41 01/07/18 11:57 Intake & Output 01/04/18 01/05/18 01/06/18 01/07/18 23:59 23:59 23:59 23:59 Intake Total 1292 1768 1584 790 Output Total 626 547 8620 500 Balance 442 818 -116 290 Weight 68.13 kg 68.81 kg 70.76 kg Gen: NAD at rest Heart: RRR Lung: decreased breath sounds at the bases Abd: soft, nontender Ext: no edema CBC, BMP 01/07/18 07:15 01/07/18 07:15 Active Medications Chlorhexidine Gluconate (Hibiclens For Decolonization -) 1 applic TP HS [facility] Last Admin: 01/06/18 21:31 Dose: 1 applic Heparin Sodium (Porcine) (Heparin -) 5,000 unit SQ TID [facility] Last Admin: 01/07/18 05:16 Dose: 5,000 unit Hydrocortisone Sodium Succinate (Solu-Cortef -) 25 mg IVPUSH Q8H-IV [facility] Stop: 01/07/18 18:00 Last Admin: 01/07/18 09:54 Dose: 25 mg Hydrocortisone Sodium Succinate (Solu-Cortef -) 25 mg IVPUSH Q12H [facility] Levetiracetam (Keppra Injection -) 750 mg IVPB BID [facility] Last Admin: 01/07/18 09:54 Dose: 750 mg ASSESSMENT AND PLAN: s/p Acute Respiratory Failure Seizure Episode Seizure Disorder Hypovolemic/Septic Shock improving UTI Pancytopenia Hypothyroidism BPH Dementia Bradycardia Atrial fibrillation - monitor off dopamine gtt - taper off empiric steroids - completed empiric antibiotics - recheck TFTs - O2 to keep SPo2 >90% - PO as tolerated - aspiration precautions - DVT/GI prophylaxis - can monitor on telemetry critical care time spent in reviewing chart, evaluating patient and formulating plan 35 min Problem List - Problems (1) Seizure Code(s): R56.9 - UNSPECIFIED CONVULSIONS (2) Hypovolemic shock Code(s): R57.1 - HYPOVOLEMIC SHOCK (3) BPH (benign prostatic hyperplasia) Code(s): N40.0 - BENIGN PROSTATIC HYPERPLASIA WITHOUT LOWER URINRY TRACT SYMP (4) Hypothyroid Code(s): E03.9 - HYPOTHYROIDISM, UNSPECIFIED (5) Dementia Code(s): F03.90 - UNSPECIFIED DEMENTIA WITHOUT BEHAVIORAL DISTURBANCE
[2018-01-07] MEDS: CHLORHEXIDINE GLUCONATE 4% CLEANSER FOR DECOLONIZATION TP SCH (22:07)
[2018-01-08] MEDS: HEPARIN NA (PORCINE) 5,000 UNITS/ML 1ML VIAL SQ SCH ×2 (05:49→14:12)
[2018-01-08] MEDS ORDERED: LEVOTHYROXINE NA 25 MCG TABLET (FP) PO SCH (07:00)
[2018-01-08 08:27] LABS: BASO % 0.2 % (0-2.0); EOS % 0.5 % (0-4.5); HEMATOCRIT 24.4 % (35.4-49); HEMOGLOBIN 8.8 GM/dL (11.7-16.9); LYMPH % 24.7 % (8-40); MCH 33.5 pg (25.7-33.7); MCHC 36.1 g/dl (32.0-35.9); MEAN CELL VOLUME 92.8 fl (80-96); MEAN PLT VOLUME 8.8 fl (7.5-11.1); MONO % 8.4 % (3.8-10.2); NEUT % 66.2 % (42.8-82.8); PLATELET COUNT 253 K/MM3 (134-434); RBC 2.63 M/mm3 (4.00-5.60); WHITE BLOOD COUNT 5.6 K/mm3 (4.0-10.0)
[2018-01-08 08:50] LABS: ANION GAP 6 (8-16); BLOOD UREA NITROGEN 31 mg/dL (7-18); CALCIUM 7.4 mg/dL (8.5-10.1); CHLORIDE 111 mmol/L (98-107); CO2 28 mmol/L (21-32); GLUCOSE,RANDOM 85 mg/dL (74-106); POTASSIUM 3.8 mmol/L (3.5-5.1); SODIUM 145 mmol/L (136-145)
[2018-01-08 09:03] LABS: ALK PHOS 78 U/L (45-117); BILIRUBIN,TOTAL 0.1 mg/dL (0.2-1.0); CREATININE 1.2 mg/dL (0.7-1.3); SGOT/AST 15 U/L (15-37); SGPT/ALT 35 U/L (12-78); TOT PROT 4.6 g/dl (6.4-8.2)
[2018-01-08] MEDS: levETIRAcetam 500 MG/5 ML INJECTION VIAL IVPB SCH (09:12)
[2018-01-08] MEDS: HYDROCORTISONE SOD SUCCINATE 100 MG/2 ML VIAL IVPUSH SCH (09:14)
--- NOTE | 2018-01-08 11:16 | PN ---
Progress Note, [employer] - Note Progress Note: Selected Entries 01/07/18 01/07/18 01/08/18 09:37 13:50 01:00 Breakfast 100% Lunch 100% Temperature 97.6 F 01/08/18 01/08/18 05:45 10:00 Breakfast Lunch Temperature 98 F 97.6 F Laboratory Tests 01/08/18 07:20 WBC 5.6 Tolerating diet. No further f/u indicated.
--- NOTE | 2018-01-08 11:17 | DS ---
Physical Examination Vital Signs: Vital Signs Temperature 97.6 F 01/08/18 10:00 Pulse Rate 54 L 01/08/18 10:00 Respiratory Rate 18 01/08/18 10:00 Blood Pressure 143/80 01/08/18 10:00 O2 Sat by Pulse Oximetry (%) 98 01/08/18 10:00 Constitutional: Yes: No Distress Cardiovascular: Yes: Regular Rate and Rhythm Respiratory: Yes: Diminished Gastrointestinal: Yes: Normal Bowel Sounds, Soft. No: Distention, Pulsatile Mass, Tenderness Edema: No Labs: CBC, BMP 01/08/18 07:20 01/08/18 07:20 Discharge Summary Reason For Visit: HYPOTHERMIA Current Active Problems Anemia (Acute) BPH (benign prostatic hyperplasia) (Acute) Bradycardia (Acute) Dementia (Acute) Hypothermia (Acute) Hypothyroid (Acute) Hypovolemic shock (Acute) PAF (paroxysmal atrial fibrillation) (Acute) Pancreatitis (Acute) Paraphimosis (Acute) Respiratory failure, acute (Acute) Seizure (Acute) Sepsis (Acute) Septic shock (Acute) UTI (urinary tract infection) (Acute) Urethral stricture (Acute) Hospital Course: Admission history Addendum entered and electronically signed by Armond Garcia, RESIDENT 12/27 23:46: Noted to have lipase 117. UA + for leuk esterase and WBCs- suggests patient may have sepsis 2/2 UTI and not pancreatitis Original Note: CHIEF COMPLAINT: seizure HISTORY OF PRESENT ILLNESS: 77 year old male with a history of hypothyroidism, dementia, BPH, seizure disorder, depression, urethral stricture, hernia repair came from [facility] s/p witnessed seizure, lethargy, and unresponsiveness. According to patient's son, patient only started having seizures when he moved into [facility] and has had 2-3 total, the last one being 6 months ago. Patient has been on Depakote in the nursing facility. Patient's son reports that he may have been complaining of vague abdominal pain for the past 3 weeks. At baseline , patient is mildly responsive, but does not communicate well or respond to simple commands. In the ED, patient was found to be hypothermic to 91 degrees, bradycardic, and hypotensive. His depakote level was found to be low. Patient was worked up for sepsis. His WBCs were low at 2.6. he was started on vanc/ zosyn and given 6 liters of fluids. His abdominal CT showed evidence of pancreatitis and bladder outlet obstruction. ER course was notable for: (1) WBCs low (2) pancreatitis on CT (3) acute hypoxic respiratory failure PAST MEDICAL HISTORY: hypothyroidism, dementia, BPH, seizure disorder, depression, urethral stricture, hernia repair PAST SURGICAL HISTORY: hernia repair Social History: Smoking: former Alcohol: former heavy drinker Drugs: none Hospitalization course Started on IV antibiotics- pt had respiratory failure and was intubated-- hypothermic-- started on IV fluids, IV antibiotics, IV Steroids Subsequently extubated had new Afib-- was on IV heparin -- seen by cardiology- discontinued heparin , advised no anticoagulation as pt is poor candidate, 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 Dopamine discontinued BP slightly lower side Almanzar placed by Urology as pt has BPH Cultures negative Pt is stable ,iv antibiotics dc Stable for dc to [facility] Condition: Improved - Instructions Referrals: Edil Matos [Primary Care Provider] - Disposition: NURSING HOME FACILITY - Home Medications Comprehensive Discharge Medication List: Ambulatory Orders Acetaminophen [Tylenol .Regular Strength -] 650 mg PO TID PRN 01/08/14 Melatonin 2 mg PO HS 01/08/14 Tamsulosin HCl [Flomax -] 0.4 mg PO HS 04/18/14 Levothyroxine [Synthroid -] 50 mcg PO DAILY 07/09/14 Amlodipine Besylate 5 mg PO DAILY 09/10/16 Benztropine Mesylate 1 mg PO BID 09/10/16 Polyethylene Glycol 3350 [Miralax (For Daily Use) -] 17 gm PO DAILY 09/10/16 Valproic Acid (As Sodium Salt) [Valproic Acid] 500 mg PO BID 09/10/16 Ascorbic Acid [Vitamin C] 500 mg PO DAILY 12/27/17 Aspirin [Aspirin EC] 81 mg PO DAILY 12/27/17 Cholecalciferol (Vitamin D3) [Vitamin D3] 1,000 unit PO DAILY 12/27/17 Multivitamins [Tab-A-Vit -] 1 tab PO DAILY 12/27/17
--- NOTE | 2018-01-08 14:58 | PN ---
Progress Note (short form) - Note Progress Note: PULMONARY Somnolent but arousable. Heart rates stable. Last Vital Signs Temp Pulse Resp BP Pulse Ox 97.6 F 54 L 18 143/80 98 01/08/18 10:00 01/08/18 10:00 01/08/18 10:00 01/08/18 10:00 01/08/18 10:00 Gen: intubated, more arousable Heart: RRR Lung: decreased breath sounds at the bases Abd: soft, nontender Ext: + edema CBC, BMP 01/08/18 07:20 01/08/18 07:20 Active Medications Chlorhexidine Gluconate (Hibiclens For Decolonization -) 1 applic TP HS [facility] Last Admin: 01/07/18 22:07 Dose: Not Given Heparin Sodium (Porcine) (Heparin -) 5,000 unit SQ TID [facility] Last Admin: 01/08/18 14:12 Dose: 5,000 unit Hydrocortisone Sodium Succinate (Solu-Cortef -) 25 mg IVPUSH Q12H [facility] Last Admin: 01/08/18 09:14 Dose: 25 mg Levetiracetam (Keppra Injection -) 750 mg IVPB BID [facility] Last Admin: 01/08/18 09:12 Dose: 750 mg A/P s/p Acute Respiratory Failure Seizure Episode Seizure Disorder Hypovolemic/Septic Shock UTI Pancytopenia Hypothyroidism BPH Dementia Bradycardia Atrial fibrillation - taper off empiric steroids - s/p empiric antibiotics - DVT prophylaxis - d/c planning Problem List - Problems (1) Seizure Code(s): R56.9 - UNSPECIFIED CONVULSIONS (2) Hypovolemic shock Code(s): R57.1 - HYPOVOLEMIC SHOCK (3) BPH (benign prostatic hyperplasia) Code(s): N40.0 - BENIGN PROSTATIC HYPERPLASIA WITHOUT LOWER URINRY TRACT SYMP (4) Hypothyroid Code(s): E03.9 - HYPOTHYROIDISM, UNSPECIFIED (5) Dementia Code(s): F03.90 - UNSPECIFIED DEMENTIA WITHOUT BEHAVIORAL DISTURBANCE
[2018-01-08 18:57] VITALS: BP 124/69; PULSE 56; TEMP 99.5
== END 2018-01-08 19:24 | DRG 870 ==
LOC: JER 10:42 → JERBED 14:38 → JICU 19:10 → J4W 01-07 14:31 → J4S 01-07 14:40
PROVIDERS: ADMIT Internal Medicine; ATTEND Internal Medicine
PROC: 5A1955Z Respiratory Ventilation, Greater than 96 Consecutive Hours (ICD-10-PCS; principal; 2017-12-27)
PROC: 0BH17EZ Insertion of Endotracheal Airway into Trachea, Via Natural or Artificial Opening (ICD-10-PCS; 2017-12-27)
PROC: 05HM33Z Insertion of Infusion Device into Right Internal Jugular Vein, Percutaneous Approach (ICD-10-PCS; 2017-12-27)
DX: A41.9 Sepsis, unspecified organism (principal); J96.01 Acute respiratory failure with hypoxia; R65.21 Severe sepsis with septic shock; E87.0 Hyperosmolality and hypernatremia; N39.0 Urinary tract infection, site not specified; D61.818 Other pancytopenia; K86.1 Other chronic pancreatitis; G40.909 Epilepsy, unspecified, not intractable, without status epilepticus; E03.9 Hypothyroidism, unspecified; F03.90 Unspecified dementia, unspecified severity, without behavioral disturbance, psychotic disturbance, mood disturbance, and anxiety; N35.9 Urethral stricture, unspecified; R00.1 Bradycardia, unspecified; D64.9 Anemia, unspecified; I48.0 Paroxysmal atrial fibrillation; F32.9 Major depressive disorder, single episode, unspecified; N40.1 Benign prostatic hyperplasia with lower urinary tract symptoms; R33.8 Other retention of urine; D72.819 Decreased white blood cell count, unspecified
CPT/HCPCS: 36415; 36600; 70450-TC; 71045-TC-FY; 74176-TC; 76705-TC; 80048; 80053; 80164; 81003; 81015; 82533; 82550; 82787; 82803; 82962; 83605; 83690; 83735; 84100; 84132; 84439; 84443; 84478; 84484; 85025; 85027; 85610; 85730; 86664; 87040; 87086; 87496; 93005; 93010; 93306-TC; 94002; 95816; 97162-GP; 99285-25; J1644; J7030